=== PATIENT | female | born 1970 | race Caucasian/White ===

== ENCOUNTER → 2017-05-01 | Outpatient (CLI) | payer OTHER ==
[~2017-05-01] MED LIST: ACYC200 PO; ALBU.083IS IH; ALBU90OI INH; ALBU90OI6 INH; ALBU90OI61 INH; AMOCLA875 PO; AMOX500 PO; ANAS1 PO; ASPI325 PO; ASPI81CH PO; Anastrozole1 GM MC; BECL80OI INH; BUPR1 PO; BUPR75 SL; BUPRENORPHIN-N1 EACH SL; BUPRENORPHINE HC8 MG PO; BUPRENORPHINE HC8 MG SL; Bactrim Ds Tab1 EACH PO; CEPH500 PO; CLIN300 PO; CLON1; CONEST.625 PO; CONEST1.25 PO; CYAN1000; CYAN1000I IM; CYCL10; CYCL10 PO; Catapres-Tts 11 EACH TOP; Cipro500 MG PO; DIPATR PO; DIPH50 PO; DOC250 PO; DOCU100 PO; DULO30; DULO60 PO; Diflucan100 MG PO; Diflucan150 MG PO; ENJUVIA PO; ESCI10; FAMO20 PO; FERR325 PO; FOLI400 PO; FURO40 PO; Flagyl500 MG PO; Flovent Diskus50 MCG IH; GLIP5 PO; GLIP5ER PO; GUAI600T33 PO; Glucophage1000 MG PO; HYDACE25S PR; HYDACE5 PO; HYDHCL25 PO; HYDMOR2 PO; HYDMOR4 PO; IBUP600; IBUP600 PO; IBUP800; IBUP800 PO; Inderal 20 mg T20 MG GT; KETO75 PO; Keflex500 MG PO; LAVAP17G PO; LEVFLO500 PO; LORA.5 PO; LORPSEER12 PO; Lisinopril2.5 MG PO; MAGCIT300 PO; METF500; METF500 PO; METF500C PO; METH10; METH40 PO; METO25 PO; METO25ER PO; MORP15ER; MORP30; MORP30ER; MULVITMIND; MULVITMINF; Macrobid 100 M100 MG PO; Macrodantin100 MG PO; Metformin HCl1000 MG PO; Miralax17 GM PO; NAC600 MG PO; NAPR500 PO; Naprosyn500 MG PO; Norco 5-325 Ta1 EACH PO; OXCA300 PO; OXYACE5T PO; OXYACE7.5T PO; OXYC10ER; PHENA100 PO; PHENA200 PO; POTA8; POTCHL10ER PO; PRED20 PO; PREG75 PO; PROM25 PO; PROP10 PO; Percocet 5-3251 EACH PO; Potassium Chlo10 ME1 PO; Prozac20 MG PO; Pyridium200 MG PO; QUET200; QUET200 PO; QUET25 PO; QUET300 PO; RANI150 PO; RXCLIN PO; RXLORA1 PO; RXOXYACE PO; RXPHEN200 PO; RXSULTRIDS PO; SIME80CH PO; SULTRIDS; SULTRIDS PO; Seroquel200 MG PO; TIOT18 IH; TIOT18 INH; TOPAMAX; TOPI50 PO; TORSE20 PO; TRAM50 PO; TRAZ100 PO; Tylenol325 MG PO; Ultram50 MG PO; VALA500; VALA500 PO; VITAMIN D2000 UNIT PO; VITAMIN D35000 UNI1 PO; Ventolin5 MG/1 ML INH; Veramyst10 GM NS; WARF5 PO; WARF7.5 PO; Zantac150 MG PO; Zofran Odt4 MG SL; [UNRECOGNIZED DRUG - OTHER]; [UNRECOGNIZED DRUG - OTHER]
== END | disposition home or self-care (01) ==
LOC: LAB SHORT 15:15
DX: N39.0 Urinary tract infection, site not specified (principal)
CPT/HCPCS: 87086

== ENCOUNTER 2017-05-26 09:30 | Emergency (ER) | payer OTHER ==
[~2017-05-26] VITALS: Ht 167.6 cm; Wt 117.9 kg
[~2017-05-26 09:30] MED LIST changes: -ACYC200 PO; -BUPRENORPHIN-N1 EACH SL; -Diflucan150 MG PO; -HYDMOR2 PO; -Keflex500 MG PO; -METO25 PO; -Macrobid 100 M100 MG PO; -NAC600 MG PO; -OXCA300 PO; -Prozac20 MG PO; -Seroquel200 MG PO; -Tylenol325 MG PO; -VITAMIN D2000 UNIT PO; -VITAMIN D35000 UNI1 PO; -WARF7.5 PO
[2017-05-26 10:20] LABS: BASOPHILS ABSOLUTE AUTO 0.03 K/mm3 (0.00-0.23); BASOPHILS PERCENT AUTO 0 % (0-2); EOSINOPHILS ABSOLUTE AUTO 0.15 K/mm3 (0.00-0.68); EOSINOPHILS PERCENT AUTO 2 % (0-6); Hematocrit 37.3 % (33.0-51.0); Hemoglobin 11.8 g/dL (11.5-16.0); IMMATURE GRAN ABSOLUTE AUTO 0.05 K/mm3 (0.00-0.10); IMMATURE GRAN PERCENT AUTO 1 % (0-1); LYMPHOCYTES PERCENT AUTO 25 % (21-46); MONOCYTES ABSOLUTE AUTO 0.39 K/mm3 (0.16-1.47); MONOCYTES PERCENT AUTO 5 % (4-13); Mean Corpuscular HGB Conc 31.6 g/dL (31.5-36.5); Mean Corpuscular Volume 85 fL (80-100); Mean Platelet Volume 10.8 fL (9.1-12.4); NEUTROPHILS ABSOLUTE AUTO 5.17 K/mm3 (1.96-9.15); NEUTROPHILS PERCENT AUTO 67 % (41-73); Platelet Count 225 K/mm3 (150-400); RDW Coefficient Variation 15.1 % (11.7-14.2); RDW Standard Deviation 47.7 fL (35.1-46.3); Red Blood Cell Count 4.37 M/mm3 (3.80-5.20); White Blood Cell Count 7.69 K/mm3 (4.00-11.30)
[2017-05-26] MEDS ORDERED: Lisinopril2.5 MG PO (10:20)
[2017-05-26] MEDS ORDERED: ANAS1 PO (10:21)
[2017-05-26] MEDS ORDERED: METO25 PO (10:21)
[2017-05-26 10:22] LABS: Source, Urine Clean Catch
[2017-05-26] MEDS ORDERED: Prozac20 MG PO (10:23)
[2017-05-26] MEDS ORDERED: QUET200 PO (10:26)
[2017-05-26] MEDS ORDERED: TORSE20 PO (10:27)
[2017-05-26 10:34] LABS: Alanine Aminotransfer (ALT/SGP 27 U/L (12-78); Albumin, Blood 3.6 g/dL (3.4-5.0); Albumin/Globulin Ratio 0.8 (0.8-1.8); Alk Phos 152 U/L (50-136); Anion Gap 10 mmol/L (6-16); Aspartate Aminotrans (AST/SGOT 16 U/L (12-37); Bilirubin, Total 0.3 mg/dL (0.1-1.0); Blood Urea Nitrogen 13 mg/dL (8-24); Bun/Creatinine Ratio 25.3 (12.0-20.0); CO2, Blood 22 mmol/L (21-32); Calcium, Blood 8.8 mg/dL (8.5-10.1); Chloride, Blood 108 mmol/L (98-108); Creatinine, Blood 0.51 mg/dL (0.40-1.00); Globulin, Blood 4.5 g/dL (2.2-4.0); Glomerular Filtration Rate >60 (60-); Glucose, Blood 152 mg/dL (70-99); Sodium, Blood 140 mmol/L (136-145); Total Protein, Blood 8.1 g/dL (6.4-8.2)
[2017-05-26 10:37] LABS: Bilirubin, Urine Neg (Neg); Blood, Urine 1+ (Neg); Glucose Qualitative, Urine Neg (Neg); Ketones, Urine Neg (Neg); Leukocyte Esterase, Urine 3+ (Neg); Nitrite, Urine Neg (Neg); Protein, Urine 1+ (Neg); Specific Gravity, Urine 1.015 (1.003-1.022); Urobilinogen, Urine NORM (Normal)
[2017-05-26 10:42] LABS: Appearance, Urine Clear (Clear); Color, Urine Yellow (P-Yellow)
[2017-05-26 10:43] LABS: Bacteria Many /hpf; Red Blood Cells, Urine 0-2 /hpf (0-2); Squamous Epithelial Cells Few /hpf (Few)
[2017-05-26] MEDS ORDERED: CEPH500 PO (11:13)
[2017-05-26] MEDS ORDERED: Ultram50 MG PO (11:13)
[2017-09-13] MEDS ORDERED: Macrobid 100 M100 MG PO (08:47)
[2017-09-13] MEDS ORDERED: Diflucan150 MG PO (08:47)
[2017-12-01] MEDS ORDERED: CYCL10 PO (12:04)
[2017-12-01] MEDS ORDERED: VITAMIN D2000 UNIT PO (12:08)
[2017-12-01] MEDS ORDERED: VITAMIN D35000 UNI1 PO (12:21)
[2017-12-01] MEDS ORDERED: OXCA300 PO (12:21)
== END 2017-05-26 11:31 | disposition home or self-care (01) ==
LOC: ER 09:30
PROVIDERS: Emergency Medicine
DX: N39.0 Urinary tract infection, site not specified (principal); J40 Bronchitis, not specified as acute or chronic; Z88.8 Allergy status to other drugs, medicaments and biological substances; Z91.030 Bee allergy status; Z79.899 Other long term (current) drug therapy; Z79.84 Long term (current) use of oral hypoglycemic drugs; Z79.82 Long term (current) use of aspirin; Z79.01 Long term (current) use of anticoagulants; Z90.49 Acquired absence of other specified parts of digestive tract; Z90.710 Acquired absence of both cervix and uterus
CPT/HCPCS: 36415; 71046; 80053; 81001; 85025; 87086; 93005; 93010; 94640; 96374; 96375; 99284; J1170; J2405

== ENCOUNTER → 2017-06-05 | Outpatient (CLI) | payer OTHER ==
[~2017-06-05] MED LIST changes: -Glucophage1000 MG PO; +METO25 PO; +Prozac20 MG PO
== END | disposition home or self-care (01) ==
LOC: LAB 16:30 → LAB SHORT 16:30
DX: N39.0 Urinary tract infection, site not specified (principal)
CPT/HCPCS: 87086

== ENCOUNTER 2017-08-31 13:38 | Emergency (ER) | payer OTHER ==
[~2017-08-31] VITALS: Ht 167.6 cm; Wt 117.9 kg
[~2017-08-31 13:38] MED LIST changes: +Glucophage1000 MG PO
[2017-08-31] MEDS ORDERED: NAC600 MG PO (13:56)
[2017-08-31] MEDS ORDERED: ACYC200 PO (13:58)
[2017-08-31] MEDS ORDERED: BUPRENORPHIN-N1 EACH SL (13:59)
[2017-08-31] MEDS ORDERED: DOCU100 PO (13:59)
[2017-08-31 15:22] LABS: International Normalized Ratio 3.04; Prothrombin Time Results 32.7 Sec (9.7-11.5)
[2017-08-31 15:28] LABS: Creatine Kinase MB 0.8 ng/mL (0.0-3.6); Creatine Kinase MB Index 1.2 (0.0-4.0)
[2017-08-31] MEDS ORDERED: Tylenol325 MG PO (15:28)
== END 2017-08-31 15:43 | disposition home or self-care (01) ==
LOC: ER 13:38
PROVIDERS: Emergency Medicine
DX: M79.631 Pain in right forearm (principal); M79.632 Pain in left forearm; Z79.01 Long term (current) use of anticoagulants; Z79.899 Other long term (current) drug therapy; Z79.82 Long term (current) use of aspirin; Z87.891 Personal history of nicotine dependence
CPT/HCPCS: 36415; 82550; 82553; 85610; 93971; 99284

== ENCOUNTER 2017-09-18 19:24 | Emergency (ER) | payer OTHER ==
[~2017-09-18] VITALS: Ht 167.6 cm; Wt 117.5 kg
[~2017-09-18 19:24] MED LIST changes: +ACYC200 PO; +BUPRENORPHIN-N1 EACH SL; +Diflucan150 MG PO; +Macrobid 100 M100 MG PO; +NAC600 MG PO; +Tylenol325 MG PO
[2017-09-18 21:02] LABS: BASOPHILS ABSOLUTE AUTO 0.06 K/mm3 (0.00-0.23); BASOPHILS PERCENT AUTO 1 % (0-2); EOSINOPHILS ABSOLUTE AUTO 0.25 K/mm3 (0.00-0.68); EOSINOPHILS PERCENT AUTO 2 % (0-6); Hematocrit 41.2 % (33.0-51.0); Hemoglobin 12.8 g/dL (11.5-16.0); IMMATURE GRAN ABSOLUTE AUTO 0.07 K/mm3 (0.00-0.10); IMMATURE GRAN PERCENT AUTO 1 % (0-1); LYMPHOCYTES ABSOLUTE AUTO 3.31 K/mm3 (0.84-5.20); LYMPHOCYTES PERCENT AUTO 30 % (21-46); MONOCYTES ABSOLUTE AUTO 0.82 K/mm3 (0.16-1.47); MONOCYTES PERCENT AUTO 7 % (4-13); Mean Corpuscular HGB 26.5 pg (26.0-34.0); Mean Corpuscular HGB Conc 31.1 g/dL (31.5-36.5); Mean Corpuscular Volume 85 fL (80-100); Mean Platelet Volume 10.3 fL (9.1-12.4); NEUTROPHILS ABSOLUTE AUTO 6.52 K/mm3 (1.96-9.15); NEUTROPHILS PERCENT AUTO 59 % (41-73); Platelet Count 261 K/mm3 (150-400); RDW Coefficient Variation 14.9 % (11.7-14.2); RDW Standard Deviation 46.6 fL (35.1-46.3); Red Blood Cell Count 4.83 M/mm3 (3.80-5.20); White Blood Cell Count 11.03 K/mm3 (4.00-11.30)
[2017-09-18 21:14] LABS: Prothrombin Time Results 32.3 Sec (9.7-11.5)
[2017-09-18] MEDS ORDERED: Keflex500 MG PO (21:15)
[2017-09-18 21:54] LABS: Anion Gap 9 mmol/L (6-16); Blood Urea Nitrogen 10 mg/dL (8-24); Bun/Creatinine Ratio 18.3 (12.0-20.0); CO2, Blood 22 mmol/L (21-32); Calcium, Blood 8.5 mg/dL (8.5-10.1); Chloride, Blood 108 mmol/L (98-108); Creatinine, Blood 0.55 mg/dL (0.40-1.00); Glomerular Filtration Rate >60 (60-); Glucose, Blood 126 mg/dL (70-99); Sodium, Blood 139 mmol/L (136-145)
== END 2017-09-18 21:39 | disposition home or self-care (01) ==
LOC: ER 19:24
PROVIDERS: Physician Assistant
DX: N61.0 Mastitis without abscess (principal); Z91.030 Bee allergy status; Z88.8 Allergy status to other drugs, medicaments and biological substances; Z79.899 Other long term (current) drug therapy; Z79.84 Long term (current) use of oral hypoglycemic drugs; Z79.82 Long term (current) use of aspirin; Z79.01 Long term (current) use of anticoagulants; Z87.891 Personal history of nicotine dependence
CPT/HCPCS: 36415; 80048; 85025; 85610; 99283

== ENCOUNTER 2017-11-11 21:36 | Emergency (ER) | payer OTHER ==
[~2017-11-11 21:36] MED LIST changes: +Keflex500 MG PO
== END 2017-11-11 22:02 | disposition left against medical advice (07) ==
LOC: ER 21:36
DX: Z53.21 Procedure and treatment not carried out due to patient leaving prior to being seen by health care provider (principal)

== ENCOUNTER 2017-12-02 00:50 | Day surgery (SDC) | payer OTHER ==
[~2017-12-02 00:50] MED LIST changes: +OXCA300 PO; +VITAMIN D2000 UNIT PO; +VITAMIN D35000 UNI1 PO
== END 2017-12-02 10:30 | disposition home or self-care (01) ==
LOC: ATC 00:50
DX: T81.4XXA Infection following a procedure, initial encounter (principal); Z95.4 Presence of other heart-valve replacement; E11.9 Type 2 diabetes mellitus without complications; Z79.01 Long term (current) use of anticoagulants
CPT/HCPCS: 36416; 85610; 96372; J1650

== ENCOUNTER 2017-12-03 00:47 | Day surgery (SDC) | payer OTHER | END 2017-12-03 10:44 | disposition home or self-care (01) | LOC: ATC 00:47 | DX: T81.4XXA Infection following a procedure, initial encounter (principal); Z95.4 Presence of other heart-valve replacement; I10 Essential (primary) hypertension; F32.9 Major depressive disorder, single episode, unspecified; I34.0 Nonrheumatic mitral (valve) insufficiency | CPT/HCPCS: 96372; J1650 ==

== ENCOUNTER 2017-12-06 00:06 | Day surgery (SDC) | payer OTHER ==
[2017-12-06] MEDS ORDERED: Prozac20 MG PO (02:07)
[2017-12-06] MEDS ORDERED: Seroquel200 MG PO (02:09)
[2017-12-06] MEDS ORDERED: TOPI50 PO (02:10)
[2017-12-06] MEDS ORDERED: HYDMOR2 PO (02:11)
[2017-12-06] MEDS ORDERED: WARF7.5 PO (02:11)
[2017-12-07] MEDS ORDERED: HYDMOR2 PO (12:19)
== END 2017-12-06 11:00 | disposition home or self-care (01) ==
LOC: ATC 00:06
DX: J44.1 Chronic obstructive pulmonary disease with (acute) exacerbation (principal); I10 Essential (primary) hypertension; F32.9 Major depressive disorder, single episode, unspecified; E78.5 Hyperlipidemia, unspecified; Z87.891 Personal history of nicotine dependence
CPT/HCPCS: J1650

== ENCOUNTER 2017-12-06 01:49 | Emergency (ER) | payer OTHER ==
[~2017-12-06] VITALS: Ht 167.6 cm; Wt 115.7 kg
[2017-12-06] MEDS ORDERED: Prozac20 MG PO (02:07)
[2017-12-06] MEDS ORDERED: Seroquel200 MG PO (02:09)
[2017-12-06] MEDS ORDERED: TOPI50 PO (02:10)
[2017-12-06] MEDS ORDERED: HYDMOR2 PO (02:11)
[2017-12-06] MEDS ORDERED: WARF7.5 PO (02:11)
[2017-12-06 02:57] LABS: BASOPHILS ABSOLUTE AUTO 0.02 K/mm3 (0.00-0.23); BASOPHILS PERCENT AUTO 0 % (0-2); EOSINOPHILS ABSOLUTE AUTO 0.15 K/mm3 (0.00-0.68); EOSINOPHILS PERCENT AUTO 2 % (0-6); Hematocrit 35.2 % (33.0-51.0); Hemoglobin 11.1 g/dL (11.5-16.0); IMMATURE GRAN ABSOLUTE AUTO 0.07 K/mm3 (0.00-0.10); IMMATURE GRAN PERCENT AUTO 1 % (0-1); LYMPHOCYTES ABSOLUTE AUTO 2.33 K/mm3 (0.84-5.20); LYMPHOCYTES PERCENT AUTO 35 % (21-46); MONOCYTES ABSOLUTE AUTO 0.52 K/mm3 (0.16-1.47); MONOCYTES PERCENT AUTO 8 % (4-13); Mean Corpuscular HGB 28.2 pg (26.0-34.0); Mean Corpuscular HGB Conc 31.5 g/dL (31.5-36.5); Mean Corpuscular Volume 90 fL (80-100); NEUTROPHILS ABSOLUTE AUTO 3.62 K/mm3 (1.96-9.15); NEUTROPHILS PERCENT AUTO 54 % (41-73); Platelet Count 204 K/mm3 (150-400); RDW Coefficient Variation 15.7 % (11.7-14.2); RDW Standard Deviation 51.4 fL (35.1-46.3); Red Blood Cell Count 3.93 M/mm3 (3.80-5.20); White Blood Cell Count 6.71 K/mm3 (4.00-11.30)
[2017-12-06 03:14] LABS: International Normalized Ratio 1.02; Prothrombin Time Results 10.5 Sec (9.7-11.5)
[2017-12-06 03:16] LABS: Alanine Aminotransfer (ALT/SGP 30 U/L (12-78); Albumin, Blood 3.4 g/dL (3.4-5.0); Albumin/Globulin Ratio 0.9 (0.8-1.8); Alk Phos 143 U/L (50-136); Anion Gap 6 mmol/L (6-16); Aspartate Aminotrans (AST/SGOT 31 U/L (12-37); Bilirubin, Total 0.4 mg/dL (0.1-1.0); Blood Urea Nitrogen 13 mg/dL (8-24); Bun/Creatinine Ratio 19.1 (12.0-20.0); CO2, Blood 28 mmol/L (21-32); Calcium, Blood 8.3 mg/dL (8.5-10.1); Chloride, Blood 104 mmol/L (98-108); Creatinine, Blood 0.68 mg/dL (0.40-1.00); Globulin, Blood 3.8 g/dL (2.2-4.0); Glomerular Filtration Rate >60 (60-); Glucose, Blood 155 mg/dL (70-99); Sodium, Blood 138 mmol/L (136-145); Total Protein, Blood 7.2 g/dL (6.4-8.2)
[2017-12-07] MEDS ORDERED: HYDMOR2 PO (12:19)
== END 2017-12-06 05:41 | disposition home or self-care (01) ==
LOC: ER 01:49
PROVIDERS: Emergency Medicine
DX: T81.89XA Other complications of procedures, not elsewhere classified, initial encounter (principal); Z91.030 Bee allergy status; Z88.8 Allergy status to other drugs, medicaments and biological substances; Z79.899 Other long term (current) drug therapy; Z79.82 Long term (current) use of aspirin; Z79.01 Long term (current) use of anticoagulants; Z87.891 Personal history of nicotine dependence
CPT/HCPCS: 80053; 85025; 85610; 85730; 93005; 93010; 96374; 99284-25; J3010

== ENCOUNTER 2017-12-06 11:06 | Emergency (ER) | payer OTHER ==
[~2017-12-06] VITALS: Ht 167.6 cm; Wt 115.7 kg
[~2017-12-06 11:06] MED LIST changes: +HYDMOR2 PO; +Seroquel200 MG PO; +WARF7.5 PO
[2017-12-07] MEDS ORDERED: HYDMOR2 PO (12:19)
== END 2017-12-06 13:23 | disposition home or self-care (01) ==
LOC: ER 11:06
DX: M96.831 Postprocedural hemorrhage of a musculoskeletal structure following other procedure (principal); G89.18 Other acute postprocedural pain; R07.2 Precordial pain; Z91.030 Bee allergy status; Z88.8 Allergy status to other drugs, medicaments and biological substances; Z79.899 Other long term (current) drug therapy; Z79.84 Long term (current) use of oral hypoglycemic drugs; Z79.82 Long term (current) use of aspirin; Z79.01 Long term (current) use of anticoagulants
CPT/HCPCS: 99282-25

== ENCOUNTER 2017-12-07 10:22 | Day surgery (SDC) | payer OTHER ==
[2017-12-07] MEDS ORDERED: HYDMOR2 PO (12:19)
== END 2017-12-07 10:42 | disposition home or self-care (01) ==
LOC: ATC 10:22
DX: J44.1 Chronic obstructive pulmonary disease with (acute) exacerbation (principal); T81.4XXA Infection following a procedure, initial encounter; Z95.4 Presence of other heart-valve replacement; I10 Essential (primary) hypertension; F32.9 Major depressive disorder, single episode, unspecified; E03.9 Hypothyroidism, unspecified; E78.5 Hyperlipidemia, unspecified; Z87.891 Personal history of nicotine dependence; J15.8 Pneumonia due to other specified bacteria
CPT/HCPCS: 85610; J1650

== ENCOUNTER 2017-12-07 11:35 | Emergency (ER) | payer OTHER ==
[~2017-12-07] VITALS: Ht 167.6 cm; Wt 113.4 kg
[2017-12-07] MEDS ORDERED: HYDMOR2 PO (12:19)
== END 2017-12-07 12:32 | disposition home or self-care (01) ==
LOC: ER 11:35
DX: G89.18 Other acute postprocedural pain (principal); Z91.030 Bee allergy status; Z88.8 Allergy status to other drugs, medicaments and biological substances; Z88.5 Allergy status to narcotic agent; Z79.899 Other long term (current) drug therapy; Z79.84 Long term (current) use of oral hypoglycemic drugs; Z79.82 Long term (current) use of aspirin; Z79.01 Long term (current) use of anticoagulants; Z87.891 Personal history of nicotine dependence
CPT/HCPCS: 99281

== ENCOUNTER 2017-12-09 00:04 | Day surgery (SDC) | payer OTHER | END 2017-12-09 10:30 | disposition home or self-care (01) | LOC: ATC 00:04 | DX: T81.4XXA Infection following a procedure, initial encounter (principal); Z95.4 Presence of other heart-valve replacement; I10 Essential (primary) hypertension; J44.9 Chronic obstructive pulmonary disease, unspecified; F32.9 Major depressive disorder, single episode, unspecified | CPT/HCPCS: 85610; 96372; J1650 ==

== ENCOUNTER 2017-12-10 10:06 | Day surgery (SDC) | payer OTHER | END 2017-12-10 10:20 | disposition home or self-care (01) | LOC: ATC 10:06 | DX: T81.4XXA Infection following a procedure, initial encounter (principal); Z95.4 Presence of other heart-valve replacement; I10 Essential (primary) hypertension; J44.9 Chronic obstructive pulmonary disease, unspecified; F32.9 Major depressive disorder, single episode, unspecified | CPT/HCPCS: 36416; 85610; 99211; J1650 ==

== ENCOUNTER → 2017-12-15 | Outpatient (CLI) | payer OTHER ==
[2017-12-15 15:15] LABS: Source, Urine Clean Catch
[2017-12-15 17:02] LABS: Bilirubin, Urine Neg (Neg); Blood, Urine Neg (Neg); Glucose Qualitative, Urine Neg (Neg); Ketones, Urine Neg (Neg); Leukocyte Esterase, Urine 3+ (Neg); Nitrite, Urine Neg (Neg); Protein, Urine Neg (Neg); Urobilinogen, Urine NORM (Normal)
[2017-12-15 17:10] LABS: Appearance, Urine Cloudy (Clear); Color, Urine Yellow (P-Yellow)
[2017-12-15 17:11] LABS: Bacteria Many /hpf; Squamous Epithelial Cells Few /hpf (Few)
== END ==
LOC: LAB 15:13 → LAB SHORT 15:13
PROVIDERS: Nurse Practitioner Family
DX: R30.0 Dysuria (principal)
CPT/HCPCS: 81001; 87077; 87086; 87186

== ENCOUNTER 2017-12-18 20:30 | Emergency (ER) | payer OTHER ==
[~2017-12-18] VITALS: Ht 162.6 cm; Wt 120.2 kg
[2017-12-18 21:06] LABS: BASOPHILS ABSOLUTE AUTO 0.03 K/mm3 (0.00-0.23); BASOPHILS PERCENT AUTO 1 % (0-2); EOSINOPHILS PERCENT AUTO 4 % (0-6); Hematocrit 35.8 % (33.0-51.0); Hemoglobin 11.2 g/dL (11.5-16.0); IMMATURE GRAN ABSOLUTE AUTO 0.04 K/mm3 (0.00-0.10); IMMATURE GRAN PERCENT AUTO 1 % (0-1); LYMPHOCYTES ABSOLUTE AUTO 2.21 K/mm3 (0.84-5.20); LYMPHOCYTES PERCENT AUTO 39 % (21-46); MONOCYTES ABSOLUTE AUTO 0.33 K/mm3 (0.16-1.47); MONOCYTES PERCENT AUTO 6 % (4-13); Mean Corpuscular HGB 27.9 pg (26.0-34.0); Mean Corpuscular HGB Conc 31.3 g/dL (31.5-36.5); Mean Corpuscular Volume 89 fL (80-100); Mean Platelet Volume 9.7 fL (9.1-12.4); NEUTROPHILS ABSOLUTE AUTO 2.81 K/mm3 (1.96-9.15); NEUTROPHILS PERCENT AUTO 50 % (41-73); Platelet Count 279 K/mm3 (150-400); RDW Coefficient Variation 15.8 % (11.7-14.2); Red Blood Cell Count 4.02 M/mm3 (3.80-5.20); White Blood Cell Count 5.62 K/mm3 (4.00-11.30)
[2017-12-18 21:18] LABS: International Normalized Ratio 1.38
[2017-12-18 21:24] LABS: Alanine Aminotransfer (ALT/SGP 26 U/L (12-78); Albumin, Blood 3.4 g/dL (3.4-5.0); Albumin/Globulin Ratio 0.8 (0.8-1.8); Alk Phos 154 U/L (50-136); Anion Gap 10 mmol/L (6-16); Aspartate Aminotrans (AST/SGOT 25 U/L (12-37); Bilirubin, Total 0.3 mg/dL (0.1-1.0); Blood Urea Nitrogen 12 mg/dL (8-24); Bun/Creatinine Ratio 20.7 (12.0-20.0); CO2, Blood 23 mmol/L (21-32); Calcium, Blood 8.6 mg/dL (8.5-10.1); Chloride, Blood 106 mmol/L (98-108); Creatinine, Blood 0.58 mg/dL (0.40-1.00); Globulin, Blood 4.2 g/dL (2.2-4.0); Glomerular Filtration Rate >60 (60-); Glucose, Blood 159 mg/dL (70-99); Potassium, Blood 3.6 mmol/L (3.5-5.5); Sodium, Blood 139 mmol/L (136-145); Total Protein, Blood 7.6 g/dL (6.4-8.2); Troponin I <0.015 ng/mL (0.000-0.040)
== END 2017-12-18 22:19 | disposition home or self-care (01) ==
LOC: ER 20:30
PROVIDERS: Emergency Medicine
DX: R07.9 Chest pain, unspecified (principal); Z91.030 Bee allergy status; Z88.8 Allergy status to other drugs, medicaments and biological substances; Z79.899 Other long term (current) drug therapy; Z79.82 Long term (current) use of aspirin; Z87.891 Personal history of nicotine dependence; Z95.4 Presence of other heart-valve replacement
CPT/HCPCS: 71046; 80053; 84484; 85025; 85610; 93005; 93010; 96360; 99285-25; J7030

== ENCOUNTER 2017-12-31 15:32 | Emergency (ER) | payer OTHER ==
[~2017-12-31] VITALS: Ht 167.6 cm; Wt 117.9 kg
== END 2017-12-31 16:24 | disposition home or self-care (01) ==
LOC: ER 15:32
DX: S60.021A Contusion of right index finger without damage to nail, initial encounter (principal); Z91.030 Bee allergy status; Z88.8 Allergy status to other drugs, medicaments and biological substances; Z79.899 Other long term (current) drug therapy; Z79.84 Long term (current) use of oral hypoglycemic drugs; Z79.82 Long term (current) use of aspirin; Z79.01 Long term (current) use of anticoagulants; Z87.891 Personal history of nicotine dependence; W23.0XXA Caught, crushed, jammed, or pinched between moving objects, initial encounter
CPT/HCPCS: 29130; 73140; 99283-25

== ENCOUNTER 2018-01-02 15:41 | Emergency (ER) | payer OTHER ==
[~2018-01-02] VITALS: Ht 167.6 cm; Wt 117.9 kg
[2018-01-02 16:07] LABS: BASOPHILS ABSOLUTE AUTO 0.03 K/mm3 (0.00-0.23); BASOPHILS PERCENT AUTO 0 % (0-2); EOSINOPHILS ABSOLUTE AUTO 0.21 K/mm3 (0.00-0.68); EOSINOPHILS PERCENT AUTO 2 % (0-6); Hematocrit 36.6 % (33.0-51.0); Hemoglobin 11.6 g/dL (11.5-16.0); IMMATURE GRAN ABSOLUTE AUTO 0.06 K/mm3 (0.00-0.10); IMMATURE GRAN PERCENT AUTO 1 % (0-1); LYMPHOCYTES ABSOLUTE AUTO 2.14 K/mm3 (0.84-5.20); LYMPHOCYTES PERCENT AUTO 25 % (21-46); MONOCYTES ABSOLUTE AUTO 0.49 K/mm3 (0.16-1.47); MONOCYTES PERCENT AUTO 6 % (4-13); Mean Corpuscular HGB Conc 31.7 g/dL (31.5-36.5); Mean Corpuscular Volume 88 fL (80-100); Mean Platelet Volume 10.5 fL (9.1-12.4); NEUTROPHILS ABSOLUTE AUTO 5.78 K/mm3 (1.96-9.15); NEUTROPHILS PERCENT AUTO 66 % (41-73); Platelet Count 264 K/mm3 (150-400); RDW Coefficient Variation 15.7 % (11.7-14.2); RDW Standard Deviation 51.1 fL (35.1-46.3); Red Blood Cell Count 4.14 M/mm3 (3.80-5.20); White Blood Cell Count 8.71 K/mm3 (4.00-11.30)
[2018-01-02 16:25] LABS: Alanine Aminotransfer (ALT/SGP 27 U/L (12-78); Albumin, Blood 3.5 g/dL (3.4-5.0); Albumin/Globulin Ratio 0.8 (0.8-1.8); Alk Phos 155 U/L (50-136); Anion Gap 11 mmol/L (6-16); Aspartate Aminotrans (AST/SGOT 28 U/L (12-37); Bilirubin, Total 0.2 mg/dL (0.1-1.0); Blood Urea Nitrogen 7 mg/dL (8-24); Bun/Creatinine Ratio 12.8 (12.0-20.0); CO2, Blood 20 mmol/L (21-32); Calcium, Blood 8.5 mg/dL (8.5-10.1); Chloride, Blood 108 mmol/L (98-108); Creatinine, Blood 0.55 mg/dL (0.40-1.00); Globulin, Blood 4.2 g/dL (2.2-4.0); Glomerular Filtration Rate >60 (60-); Glucose, Blood 177 mg/dL (70-99); Potassium, Blood 3.7 mmol/L (3.5-5.5); Sodium, Blood 139 mmol/L (136-145); Total Protein, Blood 7.7 g/dL (6.4-8.2)
== END 2018-01-02 19:14 | disposition home or self-care (01) ==
LOC: ER 15:41
PROVIDERS: Emergency Medicine
DX: R19.00 Intra-abdominal and pelvic swelling, mass and lump, unspecified site (principal); N93.9 Abnormal uterine and vaginal bleeding, unspecified; Z91.030 Bee allergy status; Z88.5 Allergy status to narcotic agent; Z88.8 Allergy status to other drugs, medicaments and biological substances; Z79.899 Other long term (current) drug therapy; Z79.84 Long term (current) use of oral hypoglycemic drugs; Z79.82 Long term (current) use of aspirin; Z79.01 Long term (current) use of anticoagulants; Z87.891 Personal history of nicotine dependence
CPT/HCPCS: 36415; 74177; 80053; 85025; 99284-25; Q9967

== ENCOUNTER → 2018-01-07 | Outpatient (CLI) | payer OTHER | LOC: LAB 17:57 → LAB SHORT 17:57 | DX: R30.0 Dysuria (principal) | CPT/HCPCS: 87086 ==

== ENCOUNTER → 2018-01-14 | Outpatient (CLI) | payer OTHER ==
[2018-01-14 16:39] LABS: Appearance, Urine Clear (Clear); Bilirubin, Urine Neg (Neg); Blood, Urine 5+ (Neg); Color, Urine Amber (P-Yellow); Glucose Qualitative, Urine Neg (Neg); Ketones, Urine 1+ (Neg); Leukocyte Esterase, Urine 1+ (Neg); Nitrite, Urine Neg (Neg); Protein, Urine 2+ (Neg); Urobilinogen, Urine NORM (Normal)
[2018-01-14 16:55] LABS: Bacteria Few /hpf; Red Blood Cells, Urine TNTC /hpf (0-2); Squamous Epithelial Cells Few /hpf (Few)
[2018-01-15 09:39] LABS: Candida species (DNA Probe) Positive (NEGATIVE); G. vaginalis (DNA Probe) Negative (NEGATIVE); T. vaginalis (DNA Probe) Negative (NEGATIVE)
== END ==
LOC: LAB 16:27 → LAB SHORT 16:27
PROVIDERS: Nurse Practitioner Family
DX: E11.9 Type 2 diabetes mellitus without complications (principal); R30.0 Dysuria
CPT/HCPCS: 81001; 82043; 87086; 87480; 87510; 87660

== ENCOUNTER 2018-04-22 19:34 | Emergency (ER) | payer OTHER ==
[~2018-04-22] VITALS: Ht 167.6 cm; Wt 117.9 kg
[2018-04-22] MEDS ORDERED: SUDAFED 12-HOU120 MG PO (20:43)
== END 2018-04-22 20:50 | disposition home or self-care (01) ==
LOC: ER 19:34
DX: J40 Bronchitis, not specified as acute or chronic (principal); Z91.030 Bee allergy status; Z88.5 Allergy status to narcotic agent; Z88.8 Allergy status to other drugs, medicaments and biological substances; Z79.899 Other long term (current) drug therapy; Z79.84 Long term (current) use of oral hypoglycemic drugs; Z79.82 Long term (current) use of aspirin; Z87.891 Personal history of nicotine dependence
CPT/HCPCS: 71046; 94640; 99284-25

== ENCOUNTER 2018-05-17 12:36 | Emergency (ER) | payer OTHER ==
[~2018-05-17] VITALS: Ht 167.6 cm; Wt 117.9 kg
[~2018-05-17 12:36] MED LIST changes: +SUDAFED 12-HOU120 MG PO
[2018-05-17 13:21] LABS: BASOPHILS ABSOLUTE AUTO 0.03 K/mm3 (0.00-0.23); BASOPHILS PERCENT AUTO 0 % (0-2); EOSINOPHILS ABSOLUTE AUTO 0.13 K/mm3 (0.00-0.68); EOSINOPHILS PERCENT AUTO 2 % (0-6); Hematocrit 42.3 % (33.0-51.0); Hemoglobin 13.6 g/dL (11.5-16.0); IMMATURE GRAN ABSOLUTE AUTO 0.05 K/mm3 (0.00-0.10); IMMATURE GRAN PERCENT AUTO 1 % (0-1); LYMPHOCYTES ABSOLUTE AUTO 0.56 K/mm3 (0.84-5.20); LYMPHOCYTES PERCENT AUTO 7 % (21-46); MONOCYTES ABSOLUTE AUTO 0.48 K/mm3 (0.16-1.47); MONOCYTES PERCENT AUTO 6 % (4-13); Mean Corpuscular HGB 28.1 pg (26.0-34.0); Mean Corpuscular HGB Conc 32.2 g/dL (31.5-36.5); Mean Corpuscular Volume 87 fL (80-100); Mean Platelet Volume 10.3 fL (9.1-12.4); NEUTROPHILS ABSOLUTE AUTO 6.53 K/mm3 (1.96-9.15); NEUTROPHILS PERCENT AUTO 84 % (41-73); Platelet Count 214 K/mm3 (150-400); RDW Standard Deviation 47.7 fL (35.1-46.3); Red Blood Cell Count 4.84 M/mm3 (3.80-5.20); White Blood Cell Count 7.78 K/mm3 (4.00-11.30)
[2018-05-17 13:56] LABS: Alanine Aminotransfer (ALT/SGP 35 U/L (12-78); Albumin, Blood 3.9 g/dL (3.4-5.0); Albumin/Globulin Ratio 0.8 (0.8-1.8); Alk Phos 173 U/L (50-136); Anion Gap 10 mmol/L (6-16); Aspartate Aminotrans (AST/SGOT 53 U/L (12-37); Bilirubin, Total 0.7 mg/dL (0.1-1.0); Blood Urea Nitrogen 9 mg/dL (8-24); Bun/Creatinine Ratio 15.8 (12.0-20.0); CO2, Blood 23 mmol/L (21-32); Calcium, Blood 8.3 mg/dL (8.5-10.1); Chloride, Blood 103 mmol/L (98-108); Creatinine, Blood 0.57 mg/dL (0.40-1.00); Globulin, Blood 4.6 g/dL (2.2-4.0); Glomerular Filtration Rate >60 (60-); Glucose, Blood 171 mg/dL (70-99); Potassium, Blood 3.5 mmol/L (3.5-5.5); Sodium, Blood 136 mmol/L (136-145); Total Protein, Blood 8.5 g/dL (6.4-8.2)
[2018-05-17 14:04] LABS: Source, Urine Clean Catch
[2018-05-17 14:06] LABS: Appearance, Urine Clear (Clear); Bilirubin, Urine Neg (Neg); Blood, Urine 2+ (Neg); Color, Urine Yellow (P-Yellow); Glucose Qualitative, Urine Neg (Neg); Ketones, Urine Neg (Neg); Leukocyte Esterase, Urine 1+ (Neg); Nitrite, Urine Neg (Neg); Protein, Urine 1+ (Neg); Urobilinogen, Urine 1+ (Normal); pH, Urine 6.5 (5.0-8.0)
[2018-05-17 14:38] LABS: Bacteria Not Seen /hpf; Squamous Epithelial Cells Few /hpf (Few)
[2018-05-17 14:44] LABS: U Amphetamine Screen Not Detected; U Barbituate Screen Not Detected; U Benzodiazapine Screen DETECTED; U Cocaine Screen Not Detected; U Methadone Screen Not Detected; U Methamphetamine Screen Not Detected; U Opiates Screen Not Detected; U Phencyclidine Screen Not Detected
[2018-05-17 14:45] LABS: U Buprenorphine Screen DETECTED; U Cannabinoids Screen Not Detected; U Oxycodone Screen Not Detected; U Propoxyphene Screen Not Detected
[2018-05-17] MEDS ORDERED: Macrobid 100 M100 MG PO (14:55)
== END 2018-05-17 15:04 | disposition home or self-care (01) ==
LOC: ER 12:36
PROVIDERS: Internal Medicine; Physician Assistant
DX: R41.0 Disorientation, unspecified (principal); E11.9 Type 2 diabetes mellitus without complications; Z79.84 Long term (current) use of oral hypoglycemic drugs; Z79.899 Other long term (current) drug therapy; Z79.82 Long term (current) use of aspirin; Z79.01 Long term (current) use of anticoagulants; Z91.030 Bee allergy status; Z88.8 Allergy status to other drugs, medicaments and biological substances; Z87.891 Personal history of nicotine dependence
CPT/HCPCS: 36415; 80053; 81001; 82947; 85025; 87086; 93005; 93010; 99285-25

== ENCOUNTER 2018-06-27 19:25 | Emergency (ER) | payer OTHER | END 2018-06-27 19:54 | disposition left against medical advice (07) | LOC: ER 19:25 | DX: Z53.21 Procedure and treatment not carried out due to patient leaving prior to being seen by health care provider (principal) ==

== ENCOUNTER 2018-07-20 15:20 | Emergency (ER) | payer OTHER ==
[~2018-07-20] VITALS: Ht 167.6 cm; Wt 117.9 kg
[2018-07-20 16:11] LABS: BASOPHILS ABSOLUTE AUTO 0.03 K/mm3 (0.00-0.23); BASOPHILS PERCENT AUTO 0 % (0-2); EOSINOPHILS PERCENT AUTO 1 % (0-6); Hematocrit 40.9 % (33.0-51.0); Hemoglobin 12.9 g/dL (11.5-16.0); IMMATURE GRAN ABSOLUTE AUTO 0.04 K/mm3 (0.00-0.10); IMMATURE GRAN PERCENT AUTO 1 % (0-1); LYMPHOCYTES ABSOLUTE AUTO 1.95 K/mm3 (0.84-5.20); LYMPHOCYTES PERCENT AUTO 22 % (21-46); MONOCYTES ABSOLUTE AUTO 0.43 K/mm3 (0.16-1.47); MONOCYTES PERCENT AUTO 5 % (4-13); Mean Corpuscular HGB 28.9 pg (26.0-34.0); Mean Corpuscular HGB Conc 31.5 g/dL (31.5-36.5); Mean Corpuscular Volume 92 fL (80-100); Mean Platelet Volume 10.5 fL (9.1-12.4); NEUTROPHILS ABSOLUTE AUTO 6.29 K/mm3 (1.96-9.15); NEUTROPHILS PERCENT AUTO 71 % (41-73); Platelet Count 256 K/mm3 (150-400); RDW Standard Deviation 47.2 fL (35.1-46.3); Red Blood Cell Count 4.46 M/mm3 (3.80-5.20); White Blood Cell Count 8.84 K/mm3 (4.00-11.30)
[2018-07-20 16:38] LABS: Alanine Aminotransfer (ALT/SGP 24 U/L (12-78); Albumin, Blood 3.8 g/dL (3.4-5.0); Albumin/Globulin Ratio 0.9 (0.8-1.8); Alk Phos 143 U/L (50-136); Anion Gap 7 mmol/L (6-16); Aspartate Aminotrans (AST/SGOT 26 U/L (12-37); Bilirubin, Total 0.8 mg/dL (0.1-1.0); Blood Urea Nitrogen 4 mg/dL (8-24); CO2, Blood 28 mmol/L (21-32); Calcium, Blood 8.6 mg/dL (8.5-10.1); Chloride, Blood 102 mmol/L (98-108); Creatinine, Blood 0.45 mg/dL (0.40-1.00); Globulin, Blood 4.2 g/dL (2.2-4.0); Glomerular Filtration Rate >60 (60-); Glucose, Blood 127 mg/dL (70-99); Potassium, Blood 3.9 mmol/L (3.5-5.5); Sodium, Blood 137 mmol/L (136-145)
[2018-07-20 16:46] LABS: Source, Urine Clean Catch
[2018-07-20 16:53] LABS: Bilirubin, Urine Neg (Neg); Blood, Urine Neg (Neg); Glucose Qualitative, Urine Neg (Neg); Ketones, Urine Neg (Neg); Leukocyte Esterase, Urine Neg (Neg); Nitrite, Urine Neg (Neg); Protein, Urine Neg (Neg); Specific Gravity, Urine 1.015 (1.003-1.022); Urobilinogen, Urine NORM (Normal)
[2018-07-20 17:09] LABS: Appearance, Urine Clear (Clear); Color, Urine Yellow (P-Yellow)
[2018-07-20] MEDS ORDERED: PROM25 PO (18:07)
== END 2018-07-20 18:15 | disposition home or self-care (01) ==
LOC: ER 15:20
PROVIDERS: Physician Assistant
DX: R11.0 Nausea (principal); Z91.030 Bee allergy status; Z88.8 Allergy status to other drugs, medicaments and biological substances; Z79.899 Other long term (current) drug therapy; Z79.82 Long term (current) use of aspirin; Z79.01 Long term (current) use of anticoagulants; Z87.891 Personal history of nicotine dependence
CPT/HCPCS: 36415; 71046; 80053; 81003; 83880; 84484; 85025; 93005; 93010; 96374; 99285-25; J2550

== ENCOUNTER → 2018-09-17 | Outpatient (CLI) | payer OTHER ==
[2018-09-17 13:05] LABS: Source, Urine Clean Catch
[2018-09-17 18:14] LABS: Bilirubin, Urine Neg (Neg); Blood, Urine 5+ (Neg); Glucose Qualitative, Urine Neg (Neg); Ketones, Urine Neg (Neg); Leukocyte Esterase, Urine 1+ (Neg); Nitrite, Urine Neg (Neg); Protein, Urine 1+ (Neg); Urobilinogen, Urine NORM (Normal)
[2018-09-17 18:33] LABS: Appearance, Urine Clear (Clear); Color, Urine Yellow (P-Yellow)
[2018-09-17 18:34] LABS: Red Blood Cells, Urine 25-50 /hpf (0-2); Squamous Epithelial Cells Few /hpf (Few)
[2018-09-17 18:35] LABS: Bacteria Few /hpf
[2018-09-18 11:13] LABS: Candida species (DNA Probe) Positive (NEGATIVE); G. vaginalis (DNA Probe) Negative (NEGATIVE); T. vaginalis (DNA Probe) Negative (NEGATIVE)
== END | disposition home or self-care (01) ==
LOC: LAB 11:20 → LAB SHORT 11:20
PROVIDERS: Nurse Practitioner Family
DX: N39.0 Urinary tract infection, site not specified (principal); L29.8 Other pruritus
CPT/HCPCS: 81001; 87086; 87480; 87510; 87660

== ENCOUNTER 2018-11-12 02:15 | Emergency (ER) | payer OTHER ==
[~2018-11-12] VITALS: Ht 167.6 cm; Wt 117.9 kg
[2018-11-12 02:47] LABS: BASOPHILS ABSOLUTE AUTO 0.03 K/mm3 (0.00-0.23); BASOPHILS PERCENT AUTO 1 % (0-2); EOSINOPHILS ABSOLUTE AUTO 0.12 K/mm3 (0.00-0.68); EOSINOPHILS PERCENT AUTO 2 % (0-6); Hematocrit 36.2 % (33.0-51.0); Hemoglobin 11.7 g/dL (11.5-16.0); IMMATURE GRAN ABSOLUTE AUTO 0.03 K/mm3 (0.00-0.10); IMMATURE GRAN PERCENT AUTO 1 % (0-1); LYMPHOCYTES ABSOLUTE AUTO 2.36 K/mm3 (0.84-5.20); LYMPHOCYTES PERCENT AUTO 37 % (21-46); MONOCYTES ABSOLUTE AUTO 0.41 K/mm3 (0.16-1.47); MONOCYTES PERCENT AUTO 7 % (4-13); Mean Corpuscular HGB 28.7 pg (26.0-34.0); Mean Corpuscular HGB Conc 32.3 g/dL (31.5-36.5); Mean Corpuscular Volume 89 fL (80-100); Mean Platelet Volume 10.4 fL (9.1-12.4); NEUTROPHILS PERCENT AUTO 53 % (41-73); Platelet Count 189 K/mm3 (150-400); RDW Standard Deviation 45.5 fL (35.1-46.3); Red Blood Cell Count 4.07 M/mm3 (3.80-5.20); White Blood Cell Count 6.35 K/mm3 (4.00-11.30)
[2018-11-12 03:00] LABS: International Normalized Ratio 2.68
[2018-11-12 03:01] LABS: Alanine Aminotransfer (ALT/SGP 27 U/L (12-78); Albumin, Blood 3.5 g/dL (3.4-5.0); Alk Phos 138 U/L (50-136); Anion Gap 8 mmol/L (6-16); Aspartate Aminotrans (AST/SGOT 34 U/L (12-37); Bilirubin, Total 0.2 mg/dL (0.1-1.0); Blood Urea Nitrogen 8 mg/dL (8-24); Bun/Creatinine Ratio 16.4 (12.0-20.0); CO2, Blood 25 mmol/L (21-32); Calcium, Blood 8.4 mg/dL (8.5-10.1); Chloride, Blood 106 mmol/L (98-108); Creatinine, Blood 0.49 mg/dL (0.40-1.00); Globulin, Blood 3.6 g/dL (2.2-4.0); Glomerular Filtration Rate >60 (60-); Glucose, Blood 145 mg/dL (70-99); Potassium, Blood 3.3 mmol/L (3.5-5.5); Sodium, Blood 139 mmol/L (136-145); Total Protein, Blood 7.1 g/dL (6.4-8.2); Troponin I <0.015 ng/mL (0.000-0.040)
[2018-11-12 04:36] LABS: Source, Urine Clean Catch
[2018-11-12 04:38] LABS: Appearance, Urine Cloudy (Clear); Bilirubin, Urine Neg (Neg); Blood, Urine 4+ (Neg); Color, Urine Yellow (P-Yellow); Glucose Qualitative, Urine Neg (Neg); Ketones, Urine Neg (Neg); Leukocyte Esterase, Urine 2+ (Neg); Nitrite, Urine Neg (Neg); Protein, Urine 1+ (Neg); Urobilinogen, Urine NORM (Normal)
[2018-11-12 04:45] LABS: Amorphous Light (0-Heavy); Bacteria Many /hpf; Calcium Oxalate Crystals Mod /hpf; Red Blood Cells, Urine 0-2 /hpf (0-2); Squamous Epithelial Cells Many /hpf (Few); White Blood Cells, Urine 0-2 /hpf (0-5)
== END 2018-11-12 03:46 | disposition home or self-care (01) ==
LOC: ER 02:15
PROVIDERS: Emergency Medicine
DX: R00.2 Palpitations (principal); F17.290 Nicotine dependence, other tobacco product, uncomplicated; Z95.2 Presence of prosthetic heart valve; Z79.01 Long term (current) use of anticoagulants; Z79.899 Other long term (current) drug therapy; Z79.82 Long term (current) use of aspirin; Z91.038 Other insect allergy status; Z88.8 Allergy status to other drugs, medicaments and biological substances
CPT/HCPCS: 36415; 71045; 80053; 81001; 83880; 84484; 85025; 85610; 87086; 93005; 93010; 99285-25

== ENCOUNTER → 2018-11-24 | Outpatient (CLI) | payer OTHER | END | disposition home or self-care (01) | LOC: LAB 19:32 → LAB SHORT 19:32 | DX: R10.9 Unspecified abdominal pain (principal) | CPT/HCPCS: 87086 ==

== ENCOUNTER → 2019-01-25 | Outpatient (CLI) | payer OTHER | END | disposition home or self-care (01) | LOC: LAB 18:00 → LAB SHORT 18:00 | DX: R30.0 Dysuria (principal) | CPT/HCPCS: 87086 ==

== ENCOUNTER 2019-03-18 20:34 | Emergency (ER) | payer OTHER | END 2019-03-18 20:48 | disposition left against medical advice (07) | LOC: ER 20:34 | DX: Z53.21 Procedure and treatment not carried out due to patient leaving prior to being seen by health care provider (principal) ==

== ENCOUNTER → 2019-04-10 | Outpatient (CLI) | payer OTHER | LOC: LAB SHORT 14:15 → LAB 14:15 | DX: R30.0 Dysuria (principal) | CPT/HCPCS: 87077; 87086; 87186 ==

== ENCOUNTER → 2019-06-01 | Outpatient (CLI) | payer OTHER | END | disposition home or self-care (01) | LOC: LAB SHORT 13:50 → LAB 13:50 | DX: R39.15 Urgency of urination (principal) | CPT/HCPCS: 87077; 87086; 87186 ==

== ENCOUNTER 2019-06-14 20:05 | Emergency (ER) | payer OTHER ==
[~2019-06-14] VITALS: Ht 167.6 cm; Wt 121.6 kg
[2019-06-14 20:27] LABS: BASOPHILS ABSOLUTE AUTO 0.04 K/mm3 (0.00-0.23); BASOPHILS PERCENT AUTO 0 % (0-2); EOSINOPHILS PERCENT AUTO 1 % (0-6); Hematocrit 40.8 % (33.0-51.0); Hemoglobin 13.2 g/dL (11.5-16.0); IMMATURE GRAN ABSOLUTE AUTO 0.05 K/mm3 (0.00-0.10); IMMATURE GRAN PERCENT AUTO 1 % (0-1); LYMPHOCYTES ABSOLUTE AUTO 1.51 K/mm3 (0.84-5.20); LYMPHOCYTES PERCENT AUTO 14 % (21-46); MONOCYTES PERCENT AUTO 8 % (4-13); Mean Corpuscular HGB 28.9 pg (26.0-34.0); Mean Corpuscular HGB Conc 32.4 g/dL (31.5-36.5); Mean Corpuscular Volume 89 fL (80-100); Mean Platelet Volume 10.3 fL (9.1-12.4); NEUTROPHILS ABSOLUTE AUTO 8.38 K/mm3 (1.96-9.15); NEUTROPHILS PERCENT AUTO 76 % (41-73); Platelet Count 237 K/mm3 (150-400); RDW Coefficient Variation 13.3 % (11.7-14.2); RDW Standard Deviation 43.4 fL (35.1-46.3); Red Blood Cell Count 4.57 M/mm3 (3.80-5.20); White Blood Cell Count 10.98 K/mm3 (4.00-11.30)
[2019-06-14 20:41] LABS: International Normalized Ratio 2.76; Prothrombin Time Results 27.9 Sec (9.7-11.5)
[2019-06-14 20:51] LABS: Alanine Aminotransfer (ALT/SGP 17 U/L (12-78); Albumin, Blood 3.7 g/dL (3.4-5.0); Albumin/Globulin Ratio 0.9 (0.8-1.8); Alk Phos 145 U/L (50-136); Anion Gap 5 mmol/L (6-16); Aspartate Aminotrans (AST/SGOT 24 U/L (12-37); Bilirubin, Total 0.4 mg/dL (0.1-1.0); Blood Urea Nitrogen 4 mg/dL (8-24); Bun/Creatinine Ratio 11.9 (12.0-20.0); CO2, Blood 27 mmol/L (21-32); Calcium, Blood 8.5 mg/dL (8.5-10.1); Chloride, Blood 99 mmol/L (98-108); Creatinine, Blood 0.34 mg/dL (0.40-1.00); Globulin, Blood 4.2 g/dL (2.2-4.0); Glomerular Filtration Rate >60 (60-); Glucose, Blood 155 mg/dL (70-99); Potassium, Blood 3.8 mmol/L (3.5-5.5); Sodium, Blood 131 mmol/L (136-145); Total Protein, Blood 7.9 g/dL (6.4-8.2); Troponin I <0.015 ng/mL (0.000-0.040)
[2019-06-15] MEDS ORDERED: Prednisone20 MG PO (22:30)
[2019-06-15] MEDS ORDERED: Augmentin 875-1 EACH PO (22:30)
== END 2019-06-14 21:58 | disposition home or self-care (01) ==
LOC: ER 20:05
PROVIDERS: Emergency Medicine
DX: F41.9 Anxiety disorder, unspecified (principal); I10 Essential (primary) hypertension; Z91.030 Bee allergy status; Z88.8 Allergy status to other drugs, medicaments and biological substances; Z88.5 Allergy status to narcotic agent; Z79.899 Other long term (current) drug therapy; Z79.82 Long term (current) use of aspirin; Z79.01 Long term (current) use of anticoagulants; Z87.891 Personal history of nicotine dependence
CPT/HCPCS: 71046; 80053; 83880; 84484; 85025; 85610; 93005; 93010; 96374; 99285-25; J2060; J7030

== ENCOUNTER 2019-06-28 14:41 | Emergency (ER) | payer OTHER ==
[~2019-06-28] VITALS: Ht 167.6 cm; Wt 120.2 kg
[~2019-06-28 14:41] MED LIST changes: +Augmentin 875-1 EACH PO; +Prednisone20 MG PO
[2019-06-28 16:23] LABS: International Normalized Ratio 2.25
[2019-06-28 16:56] LABS: Source, Urine Clean Catch
[2019-06-28 17:07] LABS: Bilirubin, Urine Neg (Neg); Blood, Urine 1+ (Neg); Glucose Qualitative, Urine 3+ (Neg); Ketones, Urine 1+ (Neg); Leukocyte Esterase, Urine Neg (Neg); Nitrite, Urine Neg (Neg); Protein, Urine 2+ (Neg); Urobilinogen, Urine NORM (Normal)
[2019-06-28 17:21] LABS: Appearance, Urine Hazy (Clear); Color, Urine Yellow (P-Yellow); White Blood Cells, Urine 0-2 /hpf (0-5)
[2019-06-28 17:22] LABS: Bacteria Mod /hpf; Squamous Epithelial Cells Few /hpf (Few)
[2019-06-28 17:46] LABS: BASOPHILS ABSOLUTE AUTO 0.04 K/mm3 (0.00-0.23); BASOPHILS PERCENT AUTO 0 % (0-2); EOSINOPHILS PERCENT AUTO 1 % (0-6); Hematocrit 44.3 % (33.0-51.0); Hemoglobin 14.5 g/dL (11.5-16.0); IMMATURE GRAN ABSOLUTE AUTO 0.03 K/mm3 (0.00-0.10); IMMATURE GRAN PERCENT AUTO 0 % (0-1); LYMPHOCYTES ABSOLUTE AUTO 1.96 K/mm3 (0.84-5.20); LYMPHOCYTES PERCENT AUTO 17 % (21-46); MONOCYTES ABSOLUTE AUTO 0.85 K/mm3 (0.16-1.47); MONOCYTES PERCENT AUTO 7 % (4-13); Mean Corpuscular HGB 28.9 pg (26.0-34.0); Mean Corpuscular HGB Conc 32.7 g/dL (31.5-36.5); Mean Corpuscular Volume 88 fL (80-100); Mean Platelet Volume 11.4 fL (9.1-12.4); NEUTROPHILS ABSOLUTE AUTO 8.54 K/mm3 (1.96-9.15); NEUTROPHILS PERCENT AUTO 74 % (41-73); Platelet Count 228 K/mm3 (150-400); RDW Coefficient Variation 13.4 % (11.7-14.2); RDW Standard Deviation 43.6 fL (35.1-46.3); Red Blood Cell Count 5.02 M/mm3 (3.80-5.20); White Blood Cell Count 11.52 K/mm3 (4.00-11.30)
[2019-06-28 17:59] LABS: Alanine Aminotransfer (ALT/SGP 30 U/L (12-78); Albumin, Blood 3.9 g/dL (3.4-5.0); Albumin/Globulin Ratio 0.8 (0.8-1.8); Alk Phos 161 U/L (50-136); Anion Gap 7 mmol/L (6-16); Aspartate Aminotrans (AST/SGOT 53 U/L (12-37); Bilirubin, Total 0.5 mg/dL (0.1-1.0); Blood Urea Nitrogen 7 mg/dL (8-24); Bun/Creatinine Ratio 23.3 (12.0-20.0); CO2, Blood 28 mmol/L (21-32); Chloride, Blood 94 mmol/L (98-108); Globulin, Blood 4.6 g/dL (2.2-4.0); Glomerular Filtration Rate >60 (60-); Glucose, Blood 271 mg/dL (70-99); Sodium, Blood 129 mmol/L (136-145); Total Protein, Blood 8.5 g/dL (6.4-8.2); Troponin I <0.015 ng/mL (0.000-0.040)
== END 2019-06-28 18:38 | disposition home or self-care (01) ==
LOC: ER 14:41
PROVIDERS: Physician Assistant
DX: I10 Essential (primary) hypertension (principal); E87.1 Hypo-osmolality and hyponatremia; F41.9 Anxiety disorder, unspecified; R73.9 Hyperglycemia, unspecified; F17.290 Nicotine dependence, other tobacco product, uncomplicated; Z79.899 Other long term (current) drug therapy
CPT/HCPCS: 36415; 80053; 81001; 83880; 84484; 85025; 85610; 87086; 93005; 93010; 99284-25

== ENCOUNTER → 2019-09-01 | Outpatient (CLI) | payer OTHER ==
[2019-09-01 19:02] LABS: Blood, Urine 1+ (Neg); Glucose Qualitative, Urine Neg (Neg); Ketones, Urine 2+ (Neg); Leukocyte Esterase, Urine 2+ (Neg); Nitrite, Urine Pos (Neg); Protein, Urine 2+ (Neg); Specific Gravity, Urine 1.025 (1.003-1.022); Urobilinogen, Urine NORM (Normal)
[2019-09-01 19:17] LABS: Appearance, Urine Cloudy (Clear); Bilirubin, Urine 1+ (Neg); Color, Urine Amber (P-Yellow)
[2019-09-01 19:18] LABS: Red Blood Cells, Urine 0-2 /hpf (0-2); Squamous Epithelial Cells Mod /hpf (Few)
[2019-09-01 19:20] LABS: Bacteria Mod /hpf
[2019-09-01 19:21] LABS: Calcium Oxalate Crystals Many /hpf; Mucus Light (0-Heavy)
== END | disposition home or self-care (01) ==
LOC: LAB SHORT 18:52 → LAB 18:52
PROVIDERS: Nurse Practitioner Family
DX: N39.0 Urinary tract infection, site not specified (principal)
CPT/HCPCS: 81001; 87086

== ENCOUNTER → 2019-09-15 | Outpatient (CLI) | payer OTHER ==
[2019-09-15 08:59] LABS: Source, Urine Clean Catch
[2019-09-15 11:58] LABS: Bilirubin, Urine Neg (Neg); Blood, Urine 1+ (Neg); Glucose Qualitative, Urine Neg (Neg); Ketones, Urine Neg (Neg); Leukocyte Esterase, Urine 2+ (Neg); Nitrite, Urine Neg (Neg); Protein, Urine Neg (Neg); Specific Gravity, Urine 1.015 (1.003-1.022); Urobilinogen, Urine NORM (Normal)
[2019-09-15 12:19] LABS: Appearance, Urine Clear (Clear); Color, Urine Yellow (P-Yellow)
[2019-09-15 12:20] LABS: Red Blood Cells, Urine 0-2 /hpf (0-2)
[2019-09-15 12:21] LABS: Bacteria Few /hpf; Squamous Epithelial Cells Few /hpf (Few); Yeast/Fungi Urine Few /hpf
== END | disposition home or self-care (01) ==
LOC: LAB SHORT 08:57 → LAB 08:57
PROVIDERS: Nurse Practitioner Family
DX: N39.0 Urinary tract infection, site not specified (principal)
CPT/HCPCS: 81001; 87086

== ENCOUNTER 2019-10-11 13:07 | Emergency (ER) | payer OTHER ==
[~2019-10-11] VITALS: Ht 167.6 cm; Wt 120.2 kg
[2019-10-11 14:22] LABS: Bilirubin, Urine Neg (Neg); Blood, Urine Neg (Neg); Glucose Qualitative, Urine Neg (Neg); Ketones, Urine Neg (Neg); Leukocyte Esterase, Urine Neg (Neg); Nitrite, Urine Neg (Neg); Protein, Urine Neg (Neg); Urobilinogen, Urine NORM (Normal)
[2019-10-11 14:29] LABS: Appearance, Urine Clear (Clear); Color, Urine Yellow (P-Yellow)
== END 2019-10-11 13:36 | disposition left against medical advice (07) ==
LOC: ER 13:07
PROVIDERS: Emergency Medicine
DX: Z53.21 Procedure and treatment not carried out due to patient leaving prior to being seen by health care provider (principal)
CPT/HCPCS: 81003

== ENCOUNTER → 2019-12-18 | Outpatient (CLI) | payer OTHER | END | disposition home or self-care (01) | LOC: LAB 15:12 → LAB SHORT 15:12 | DX: N30.10 Interstitial cystitis (chronic) without hematuria (principal); N32.89 Other specified disorders of bladder | CPT/HCPCS: 87086 ==

== ENCOUNTER 2020-01-23 13:54 | Emergency (ER) | payer OTHER ==
[~2020-01-23] VITALS: Ht 167.6 cm; Wt 119.8 kg
[2020-01-23] MEDS ORDERED: BUPRENORPHINE HC8 MG SL (14:15)
[2020-01-23] MEDS ORDERED: Lisinopril2.5 MG PO (14:16)
[2020-01-23] MEDS ORDERED: WARF6 PO (14:17)
[2020-01-23] MEDS ORDERED: METO25 (14:18)
[2020-01-23] MEDS ORDERED: AMLO5 PO (14:18)
[2020-01-23] MEDS ORDERED: CEPH250A PO (14:19)
[2020-01-23] MEDS ORDERED: OMEP20ER PO (14:20)
[2020-01-23] MEDS ORDERED: CARB200 PO (14:20)
[2020-01-23] MEDS ORDERED: Amlodipine Bes2.5 MG PO (14:20)
[2020-01-23] MEDS ORDERED: METO50 PO (14:21)
[2020-01-23 14:40] LABS: BASOPHILS ABSOLUTE AUTO 0.02 K/mm3 (0.00-0.23); BASOPHILS PERCENT AUTO 0 % (0-2); EOSINOPHILS ABSOLUTE AUTO 0.11 K/mm3 (0.00-0.68); EOSINOPHILS PERCENT AUTO 2 % (0-6); Hematocrit 37.5 % (33.0-51.0); Hemoglobin 11.8 g/dL (11.5-16.0); IMMATURE GRAN ABSOLUTE AUTO 0.03 K/mm3 (0.00-0.10); IMMATURE GRAN PERCENT AUTO 1 % (0-1); LYMPHOCYTES ABSOLUTE AUTO 1.33 K/mm3 (0.84-5.20); LYMPHOCYTES PERCENT AUTO 22 % (21-46); MONOCYTES ABSOLUTE AUTO 0.38 K/mm3 (0.16-1.47); MONOCYTES PERCENT AUTO 6 % (4-13); Mean Corpuscular HGB 28.9 pg (26.0-34.0); Mean Corpuscular HGB Conc 31.5 g/dL (31.5-36.5); Mean Corpuscular Volume 92 fL (80-100); Mean Platelet Volume 10.6 fL (9.1-12.4); NEUTROPHILS ABSOLUTE AUTO 4.17 K/mm3 (1.96-9.15); NEUTROPHILS PERCENT AUTO 69 % (41-73); Platelet Count 181 K/mm3 (150-400); RDW Standard Deviation 44.1 fL (35.1-46.3); Red Blood Cell Count 4.08 M/mm3 (3.80-5.20); White Blood Cell Count 6.04 K/mm3 (4.00-11.30)
[2020-01-23 14:58] LABS: Alanine Aminotransfer (ALT/SGP 14 U/L (12-78); Albumin, Blood 3.3 g/dL (3.4-5.0); Albumin/Globulin Ratio 0.8 (0.8-1.8); Alk Phos 153 U/L (50-136); Anion Gap 7 mmol/L (6-16); Aspartate Aminotrans (AST/SGOT 16 U/L (12-37); Bilirubin, Total 0.3 mg/dL (0.1-1.0); Blood Urea Nitrogen 10 mg/dL (8-24); Bun/Creatinine Ratio 25.8 (12.0-20.0); CO2, Blood 29 mmol/L (21-32); Calcium, Blood 8.4 mg/dL (8.5-10.1); Chloride, Blood 100 mmol/L (98-108); Creatinine, Blood 0.39 mg/dL (0.40-1.00); Globulin, Blood 4.2 g/dL (2.2-4.0); Glomerular Filtration Rate >60 (60-); Glucose, Blood 276 mg/dL (70-99); Magnesium, Blood 1.5 mg/dL (1.6-2.4); Potassium, Blood 3.9 mmol/L (3.5-5.5); Sodium, Blood 136 mmol/L (136-145); Total Protein, Blood 7.5 g/dL (6.4-8.2); Troponin I <0.015 ng/mL (0.000-0.040)
[2020-01-23 15:05] LABS: International Normalized Ratio 1.26; Prothrombin Time Results 13.3 Sec (9.7-11.5)
== END 2020-01-23 15:42 | disposition home or self-care (01) ==
LOC: ER 13:54
PROVIDERS: Emergency Medicine
DX: R55 Syncope and collapse (principal); R53.1 Weakness; I10 Essential (primary) hypertension; F32.9 Major depressive disorder, single episode, unspecified; F17.290 Nicotine dependence, other tobacco product, uncomplicated; Z91.030 Bee allergy status; Z88.8 Allergy status to other drugs, medicaments and biological substances; Z88.4 Allergy status to anesthetic agent; Z79.899 Other long term (current) drug therapy; Z79.82 Long term (current) use of aspirin; Z79.01 Long term (current) use of anticoagulants; Z79.52 Long term (current) use of systemic steroids
CPT/HCPCS: 36415; 80053; 83735; 83880; 84484; 85025; 85610; 93005; 93010; 99284-25

== ENCOUNTER 2020-03-11 11:42 | Emergency (ER) | payer OTHER ==
[~2020-03-11] VITALS: Ht 167.6 cm; Wt 120.2 kg
[~2020-03-11 11:42] MED LIST changes: +AMLO5 PO; +Amlodipine Bes2.5 MG PO; +CARB200 PO; +CEPH250A PO; +METO25; +METO50 PO; +OMEP20ER PO; +WARF6 PO
[2020-03-11 12:44] LABS: BASOPHILS ABSOLUTE AUTO 0.02 K/mm3 (0.00-0.23); BASOPHILS PERCENT AUTO 0 % (0-2); EOSINOPHILS ABSOLUTE AUTO 0.14 K/mm3 (0.00-0.68); EOSINOPHILS PERCENT AUTO 2 % (0-6); Hematocrit 36.3 % (33.0-51.0); Hemoglobin 11.7 g/dL (11.5-16.0); IMMATURE GRAN ABSOLUTE AUTO 0.05 K/mm3 (0.00-0.10); IMMATURE GRAN PERCENT AUTO 1 % (0-1); LYMPHOCYTES ABSOLUTE AUTO 1.25 K/mm3 (0.84-5.20); LYMPHOCYTES PERCENT AUTO 19 % (21-46); MONOCYTES ABSOLUTE AUTO 0.47 K/mm3 (0.16-1.47); MONOCYTES PERCENT AUTO 7 % (4-13); Mean Corpuscular HGB Conc 32.2 g/dL (31.5-36.5); Mean Corpuscular Volume 90 fL (80-100); Mean Platelet Volume 9.8 fL (9.1-12.4); NEUTROPHILS ABSOLUTE AUTO 4.72 K/mm3 (1.96-9.15); NEUTROPHILS PERCENT AUTO 71 % (41-73); Platelet Count 191 K/mm3 (150-400); RDW Coefficient Variation 13.7 % (11.7-14.2); RDW Standard Deviation 44.6 fL (35.1-46.3); Red Blood Cell Count 4.04 M/mm3 (3.80-5.20); White Blood Cell Count 6.65 K/mm3 (4.00-11.30)
[2020-03-11 13:07] LABS: Prothrombin Time Results 44.4 Sec (9.7-11.5)
[2020-03-11 13:08] LABS: International Normalized Ratio 4.52
[2020-03-11 13:10] LABS: Alanine Aminotransfer (ALT/SGP 16 U/L (12-78); Albumin, Blood 3.1 g/dL (3.4-5.0); Albumin/Globulin Ratio 0.7 (0.8-1.8); Alk Phos 167 U/L (50-136); Anion Gap 5 mmol/L (6-16); Aspartate Aminotrans (AST/SGOT 20 U/L (12-37); Bilirubin, Total 0.4 mg/dL (0.1-1.0); Blood Urea Nitrogen 6 mg/dL (8-24); Bun/Creatinine Ratio 15.6 (12.0-20.0); CO2, Blood 30 mmol/L (21-32); Calcium, Blood 8.3 mg/dL (8.5-10.1); Chloride, Blood 102 mmol/L (98-108); Creatinine, Blood 0.38 mg/dL (0.40-1.00); Globulin, Blood 4.2 g/dL (2.2-4.0); Glomerular Filtration Rate >60 (60-); Glucose, Blood 218 mg/dL (70-99); Potassium, Blood 3.7 mmol/L (3.5-5.5); Sodium, Blood 137 mmol/L (136-145); Total Protein, Blood 7.3 g/dL (6.4-8.2)
[2020-03-11 13:30] LABS: Influenza A, PCR Negative (NEGATIVE); Influenza B, PCR Negative (NEGATIVE); Resp Syncytial Virus, PCR Negative (NEGATIVE); SARS-Cov-2 (COVID-19) PCR, MMC Negative (NEGATIVE)
== END 2020-03-11 13:09 | disposition home or self-care (01) ==
LOC: ER 11:42
PROVIDERS: Emergency Medicine; Physician Assistant
DX: S40.022A Contusion of left upper arm, initial encounter (principal); S50.12XA Contusion of left forearm, initial encounter; R07.89 Other chest pain; I10 Essential (primary) hypertension; R79.1 Abnormal coagulation profile; F32.9 Major depressive disorder, single episode, unspecified; F17.290 Nicotine dependence, other tobacco product, uncomplicated; Z20.828 Contact with and (suspected) exposure to other viral communicable diseases; Z79.82 Long term (current) use of aspirin; Z79.01 Long term (current) use of anticoagulants; Z79.899 Other long term (current) drug therapy; Z91.030 Bee allergy status; Z88.8 Allergy status to other drugs, medicaments and biological substances; Z88.4 Allergy status to anesthetic agent; X58.XXXA Exposure to other specified factors, initial encounter
CPT/HCPCS: 0241U; 36415; 80053; 85025; 85610; 85730; 99284

== ENCOUNTER 2020-05-04 18:27 | Emergency (ER) | payer OTHER ==
[~2020-05-04] VITALS: Ht 167.6 cm; Wt 120.2 kg
[2020-08-17] MEDS ORDERED: METH10 (17:14)
[2020-08-17] MEDS ORDERED: Pyridium100 MG PO (17:46)
== END 2020-05-04 18:42 | disposition left against medical advice (07) ==
LOC: ER 18:27
DX: R55 Syncope and collapse (principal); Z53.21 Procedure and treatment not carried out due to patient leaving prior to being seen by health care provider; Z79.82 Long term (current) use of aspirin; Z79.899 Other long term (current) drug therapy; Z79.01 Long term (current) use of anticoagulants
CPT/HCPCS: 99283

== ENCOUNTER 2020-05-10 17:19 | Emergency (ER) | payer OTHER ==
[~2020-05-10] VITALS: Ht 167.6 cm; Wt 120.2 kg
[2020-05-10 17:58] LABS: BASOPHILS ABSOLUTE AUTO 0.03 K/mm3 (0.00-0.23); BASOPHILS PERCENT AUTO 0 % (0-2); EOSINOPHILS ABSOLUTE AUTO 0.11 K/mm3 (0.00-0.68); EOSINOPHILS PERCENT AUTO 1 % (0-6); Hematocrit 43.8 % (33.0-51.0); Hemoglobin 14.2 g/dL (11.5-16.0); IMMATURE GRAN ABSOLUTE AUTO 0.04 K/mm3 (0.00-0.10); IMMATURE GRAN PERCENT AUTO 1 % (0-1); LYMPHOCYTES ABSOLUTE AUTO 2.04 K/mm3 (0.84-5.20); LYMPHOCYTES PERCENT AUTO 26 % (21-46); MONOCYTES ABSOLUTE AUTO 0.67 K/mm3 (0.16-1.47); MONOCYTES PERCENT AUTO 9 % (4-13); Mean Corpuscular HGB 28.6 pg (26.0-34.0); Mean Corpuscular HGB Conc 32.4 g/dL (31.5-36.5); Mean Corpuscular Volume 88 fL (80-100); Mean Platelet Volume 9.9 fL (9.1-12.4); NEUTROPHILS ABSOLUTE AUTO 4.83 K/mm3 (1.96-9.15); NEUTROPHILS PERCENT AUTO 63 % (41-73); Platelet Count 285 K/mm3 (150-400); RDW Coefficient Variation 13.7 % (11.7-14.2); RDW Standard Deviation 43.8 fL (35.1-46.3); Red Blood Cell Count 4.96 M/mm3 (3.80-5.20); White Blood Cell Count 7.72 K/mm3 (4.00-11.30)
[2020-05-10 18:02] LABS: Source, Urine Clean Catch
[2020-05-10 18:07] LABS: Appearance, Urine Cloudy (Clear); Bilirubin, Urine Neg (Neg); Blood, Urine 1+ (Neg); Color, Urine Yellow (P-Yellow); Glucose Qualitative, Urine Neg (Neg); Ketones, Urine Neg (Neg); Leukocyte Esterase, Urine 1+ (Neg); Nitrite, Urine Neg (Neg); Protein, Urine 3+ (Neg); Specific Gravity, Urine 1.015 (1.003-1.022); Urobilinogen, Urine NORM (Normal)
[2020-05-10 18:24] LABS: Amorphous Light (0-Heavy); Bacteria Few /hpf; Red Blood Cells, Urine 0-2 /hpf (0-2); Squamous Epithelial Cells Mod /hpf (Few); White Blood Cells, Urine 0-2 /hpf (0-5); Yeast/Fungi Urine Few /hpf
[2020-05-10 18:24] LABS: Alanine Aminotransfer (ALT/SGP 25 U/L (12-78); Albumin, Blood 3.8 g/dL (3.4-5.0); Albumin/Globulin Ratio 0.7 (0.8-1.8); Alk Phos 191 U/L (50-136); Anion Gap 7 mmol/L (6-16); Aspartate Aminotrans (AST/SGOT 53 U/L (12-37); Bilirubin, Total 0.5 mg/dL (0.1-1.0); Blood Urea Nitrogen 9 mg/dL (8-24); Bun/Creatinine Ratio 21.8 (12.0-20.0); CO2, Blood 28 mmol/L (21-32); Calcium, Blood 9.1 mg/dL (8.5-10.1); Chloride, Blood 96 mmol/L (98-108); Creatinine, Blood 0.41 mg/dL (0.40-1.00); Globulin, Blood 5.3 g/dL (2.2-4.0); Glomerular Filtration Rate >60 (60-); Glucose, Blood 158 mg/dL (70-99); Potassium, Blood 4.3 mmol/L (3.5-5.5); Sodium, Blood 131 mmol/L (136-145); Total Protein, Blood 9.1 g/dL (6.4-8.2)
[2020-05-10] MEDS ORDERED: AMOCLA875 PO (19:03)
[2020-08-17] MEDS ORDERED: METH10 (17:14)
[2020-08-17] MEDS ORDERED: Pyridium100 MG PO (17:46)
== END 2020-05-10 19:22 | disposition home or self-care (01) ==
LOC: ER 17:19
PROVIDERS: Emergency Medicine
DX: K52.9 Noninfective gastroenteritis and colitis, unspecified (principal); R19.00 Intra-abdominal and pelvic swelling, mass and lump, unspecified site; G89.29 Other chronic pain; J40 Bronchitis, not specified as acute or chronic; I11.0 Hypertensive heart disease with heart failure; I50.9 Heart failure, unspecified; E11.9 Type 2 diabetes mellitus without complications; F17.290 Nicotine dependence, other tobacco product, uncomplicated; Z88.8 Allergy status to other drugs, medicaments and biological substances; Z88.4 Allergy status to anesthetic agent; Z79.82 Long term (current) use of aspirin; Z79.01 Long term (current) use of anticoagulants; Z79.899 Other long term (current) drug therapy; Z91.030 Bee allergy status
CPT/HCPCS: 36415; 74177; 80053; 81001; 85025; 87086; 99284-25; A9270; Q9967

== ENCOUNTER 2020-06-02 13:31 | Emergency (ER) | payer OTHER ==
[~2020-06-02] VITALS: Ht 167.6 cm; Wt 120.2 kg
[2020-06-02] MEDS ORDERED: TYLECOD3 PO (17:25)
[2020-08-17] MEDS ORDERED: METH10 (17:14)
[2020-08-17] MEDS ORDERED: Pyridium100 MG PO (17:46)
== END 2020-06-02 17:35 | disposition home or self-care (01) ==
LOC: ER 13:31
DX: R10.2 Pelvic and perineal pain (principal); G89.29 Other chronic pain; F11.23 Opioid dependence with withdrawal; T40.2X5A Adverse effect of other opioids, initial encounter; I11.0 Hypertensive heart disease with heart failure; I50.9 Heart failure, unspecified; E11.9 Type 2 diabetes mellitus without complications; F17.290 Nicotine dependence, other tobacco product, uncomplicated; Z79.82 Long term (current) use of aspirin; Z79.899 Other long term (current) drug therapy; Z88.4 Allergy status to anesthetic agent; Z91.030 Bee allergy status; Z88.8 Allergy status to other drugs, medicaments and biological substances; Z79.01 Long term (current) use of anticoagulants
CPT/HCPCS: 93005; 93010; 99283-25

== ENCOUNTER → 2020-07-20 | Outpatient (CLI) | payer OTHER ==
[~2020-07-20] MED LIST changes: +Pyridium100 MG PO; +TYLECOD3 PO
== END | disposition home or self-care (01) ==
LOC: LAB SHORT 07:15 → LAB 07:15
DX: R30.0 Dysuria (principal)
CPT/HCPCS: 87077; 87086; 87186

== ENCOUNTER 2020-08-01 23:28 | Emergency (ER) | payer OTHER ==
[~2020-08-01] VITALS: Ht 167.6 cm; Wt 117.9 kg
== END 2020-08-02 01:06 | disposition home or self-care (01) ==
LOC: ER 23:28
DX: R07.9 Chest pain, unspecified (principal); F17.290 Nicotine dependence, other tobacco product, uncomplicated; Z79.899 Other long term (current) drug therapy; Z88.4 Allergy status to anesthetic agent; Z91.030 Bee allergy status
CPT/HCPCS: 80053; 81001; 81025; 84484; 85025; 87086; 93005; 93010; 99285-25; G0480; J7030

== ENCOUNTER 2020-08-24 14:19 | Emergency (ER) | payer OTHER ==
[~2020-08-24] VITALS: Ht 167.6 cm; Wt 117.9 kg
[2020-08-24 15:00] LABS: BASOPHILS ABSOLUTE AUTO 0.02 K/mm3 (0.00-0.23); BASOPHILS PERCENT AUTO 0 % (0-2); EOSINOPHILS ABSOLUTE AUTO 0.16 K/mm3 (0.00-0.68); EOSINOPHILS PERCENT AUTO 2 % (0-6); Hematocrit 30.7 % (33.0-51.0); Hemoglobin 9.8 g/dL (11.5-16.0); IMMATURE GRAN PERCENT AUTO 1 % (0-1); LYMPHOCYTES ABSOLUTE AUTO 1.18 K/mm3 (0.84-5.20); LYMPHOCYTES PERCENT AUTO 17 % (21-46); MONOCYTES ABSOLUTE AUTO 0.39 K/mm3 (0.16-1.47); MONOCYTES PERCENT AUTO 6 % (4-13); Mean Corpuscular HGB Conc 31.9 g/dL (31.5-36.5); Mean Corpuscular Volume 94 fL (80-100); Mean Platelet Volume 10.2 fL (9.1-12.4); NEUTROPHILS PERCENT AUTO 74 % (41-73); Platelet Count 240 K/mm3 (150-400); Red Blood Cell Count 3.27 M/mm3 (3.80-5.20); White Blood Cell Count 7.05 K/mm3 (4.00-11.30)
[2020-08-24 16:17] LABS: International Normalized Ratio 3.02; Prothrombin Time Results 30.6 Sec (9.7-11.5)
[2020-08-24 16:49] LABS: Alanine Aminotransfer (ALT/SGP 16 U/L (12-78); Albumin/Globulin Ratio 0.8 (0.8-1.8); Alk Phos 141 U/L (50-136); Anion Gap 6 mmol/L (6-16); Aspartate Aminotrans (AST/SGOT 17 U/L (12-37); Bilirubin, Total 0.2 mg/dL (0.1-1.0); Blood Urea Nitrogen 6 mg/dL (8-24); Bun/Creatinine Ratio 13.3 (12.0-20.0); CO2, Blood 27 mmol/L (21-32); Calcium, Blood 8.1 mg/dL (8.5-10.1); Chloride, Blood 100 mmol/L (98-108); Creatinine, Blood 0.45 mg/dL (0.40-1.00); Globulin, Blood 3.9 g/dL (2.2-4.0); Glomerular Filtration Rate >60 (60-); Glucose, Blood 180 mg/dL (70-99); Potassium, Blood 3.8 mmol/L (3.5-5.5); Sodium, Blood 133 mmol/L (136-145); Total Protein, Blood 6.9 g/dL (6.4-8.2)
== END 2020-08-24 17:54 | disposition home or self-care (01) ==
LOC: ER 14:19
PROVIDERS: Emergency Medicine
DX: R07.9 Chest pain, unspecified (principal); Z79.01 Long term (current) use of anticoagulants; Z79.899 Other long term (current) drug therapy; Z88.4 Allergy status to anesthetic agent; Z91.030 Bee allergy status
CPT/HCPCS: 71045; 71260; 80053; 83880; 84484; 85025; 85610; 93005; 93010; 99285-25; Q9967

== ENCOUNTER → 2020-08-31 | Outpatient (CLI) | payer OTHER ==
[2020-09-04 13:11] LABS: COTININE Positive ng/mL (Cutoff=300)
== END ==
LOC: LAB SHORT 10:31 → LAB 10:31
PROVIDERS: Student in an Organized Health Care Education/Training Program
DX: F17.210 Nicotine dependence, cigarettes, uncomplicated (principal)

== ENCOUNTER 2020-11-02 10:05 | Emergency (ER) | payer OTHER ==
[~2020-11-02] VITALS: Ht 167.6 cm; Wt 117.9 kg
[2020-11-02 10:59] LABS: Source, Urine Clean Catch
[2020-11-02 11:09] LABS: Appearance, Urine Hazy (Clear); Blood, Urine 1+ (Neg); Color, Urine Yellow (P-Yellow); Glucose Qualitative, Urine Neg (Neg); Ketones, Urine 1+ (Neg); Leukocyte Esterase, Urine 1+ (Neg); Nitrite, Urine Neg (Neg); Protein, Urine 2+ (Neg); Urobilinogen, Urine 1+ (Normal)
[2020-11-02 11:23] LABS: Bilirubin, Urine 1+ (Neg)
[2020-11-02 11:26] LABS: Red Blood Cells, Urine 0-2 /hpf (0-2)
[2020-11-02 11:27] LABS: Bacteria Few /hpf; Squamous Epithelial Cells Many /hpf (Few)
[2020-11-02] MEDS ORDERED: QUET200 PO (11:32)
[2020-11-02] MEDS ORDERED: Diflucan100 MG PO (11:32)
[2020-11-02] MEDS ORDERED: Pyridium200 MG PO (11:36)
== END 2020-11-02 11:46 | disposition home or self-care (01) ==
LOC: ER 10:05
PROVIDERS: Emergency Medicine
DX: N30.90 Cystitis, unspecified without hematuria (principal); I50.9 Heart failure, unspecified; E11.9 Type 2 diabetes mellitus without complications; F17.290 Nicotine dependence, other tobacco product, uncomplicated; Z87.448 Personal history of other diseases of urinary system; Z91.030 Bee allergy status; Z79.899 Other long term (current) drug therapy; Z79.82 Long term (current) use of aspirin; Z79.01 Long term (current) use of anticoagulants
CPT/HCPCS: 81001; 87086; 99283

== ENCOUNTER → 2021-02-02 | Outpatient (CLI) | payer OTHER | END | disposition home or self-care (01) | LOC: LAB SHORT 08:00 → LAB 08:00 | DX: R35.0 Frequency of micturition (principal) | CPT/HCPCS: 87086 ==

== ENCOUNTER 2021-02-24 06:19 | Emergency (ER) | payer OTHER ==
[~2021-02-24] VITALS: Ht 167.6 cm; Wt 117.9 kg
[2021-02-24 08:05] LABS: BASOPHILS ABSOLUTE AUTO 0.03 K/mm3 (0.00-0.23); BASOPHILS PERCENT AUTO 0 % (0-2); EOSINOPHILS ABSOLUTE AUTO 0.13 K/mm3 (0.00-0.68); EOSINOPHILS PERCENT AUTO 1 % (0-6); Hematocrit 38.6 % (33.0-51.0); Hemoglobin 12.6 g/dL (11.5-16.0); IMMATURE GRAN ABSOLUTE AUTO 0.05 K/mm3 (0.00-0.10); IMMATURE GRAN PERCENT AUTO 1 % (0-1); LYMPHOCYTES ABSOLUTE AUTO 1.77 K/mm3 (0.84-5.20); LYMPHOCYTES PERCENT AUTO 18 % (21-46); MONOCYTES ABSOLUTE AUTO 0.63 K/mm3 (0.16-1.47); MONOCYTES PERCENT AUTO 6 % (4-13); Mean Corpuscular HGB 29.4 pg (26.0-34.0); Mean Corpuscular HGB Conc 32.6 g/dL (31.5-36.5); Mean Corpuscular Volume 90 fL (80-100); Mean Platelet Volume 10.1 fL (9.1-12.4); NEUTROPHILS ABSOLUTE AUTO 7.42 K/mm3 (1.96-9.15); NEUTROPHILS PERCENT AUTO 74 % (41-73); Platelet Count 251 K/mm3 (150-400); RDW Coefficient Variation 14.2 % (11.7-14.2); RDW Standard Deviation 46.5 fL (35.1-46.3); Red Blood Cell Count 4.29 M/mm3 (3.80-5.20); White Blood Cell Count 10.03 K/mm3 (4.00-11.30)
[2021-02-24 08:19] LABS: Alanine Aminotransfer (ALT/SGP 14 U/L (12-78); Albumin, Blood 3.1 g/dL (3.4-5.0); Albumin/Globulin Ratio 0.6 (0.8-1.8); Alk Phos 162 U/L (50-136); Anion Gap 5 mmol/L (6-16); Aspartate Aminotrans (AST/SGOT 21 U/L (12-37); Bilirubin, Total 0.2 mg/dL (0.1-1.0); Blood Urea Nitrogen 11 mg/dL (8-24); Bun/Creatinine Ratio 17.7 (12.0-20.0); CO2, Blood 30 mmol/L (21-32); Chloride, Blood 101 mmol/L (98-108); Creatinine, Blood 0.62 mg/dL (0.40-1.00); Globulin, Blood 4.8 g/dL (2.2-4.0); Glomerular Filtration Rate >60 (60-); Glucose, Blood 119 mg/dL (70-99); Potassium, Blood 4.2 mmol/L (3.5-5.5); Sodium, Blood 136 mmol/L (136-145); Total Protein, Blood 7.9 g/dL (6.4-8.2)
[2021-02-24 08:53] LABS: Source, Urine Voided
[2021-02-24 09:07] LABS: Appearance, Urine Hazy (Clear); Bilirubin, Urine Neg (Neg); Blood, Urine 4+ (Neg); Color, Urine Amber (P-Yellow); Glucose Qualitative, Urine Neg (Neg); Ketones, Urine Neg (Neg); Leukocyte Esterase, Urine 2+ (Neg); Nitrite, Urine Neg (Neg); Protein, Urine 2+ (Neg); Urobilinogen, Urine NORM (Normal); pH, Urine 6.5 (5.0-8.0)
[2021-02-24 09:20] LABS: International Normalized Ratio 3.98; Prothrombin Time Results 38.2 Sec (9.7-11.5)
[2021-02-24 09:27] LABS: Bacteria Mod /hpf; Red Blood Cells, Urine TNTC /hpf (0-2); Squamous Epithelial Cells Few /hpf (Few)
[2021-02-24] MEDS ORDERED: CEFP200 PO (10:25)
== END 2021-02-24 10:55 | disposition home or self-care (01) ==
LOC: ER 06:19
PROVIDERS: Emergency Medicine
DX: N30.91 Cystitis, unspecified with hematuria (principal); N39.0 Urinary tract infection, site not specified; R79.1 Abnormal coagulation profile; I50.9 Heart failure, unspecified; E11.9 Type 2 diabetes mellitus without complications; F17.290 Nicotine dependence, other tobacco product, uncomplicated; Z91.030 Bee allergy status; Z88.8 Allergy status to other drugs, medicaments and biological substances; Z79.82 Long term (current) use of aspirin; Z79.899 Other long term (current) drug therapy
CPT/HCPCS: 36415; 51798; 74177; 80053; 81001; 83690; 85025; 85610; 85730; 87077; 87086; 87186; 93005; 93010; 96374; 96375; 99284-25; J0696; J2270; J2405; J7030; Q9967

== ENCOUNTER 2021-04-01 23:13 | Emergency (ER) | payer OTHER ==
[~2021-04-01] VITALS: Ht 167.6 cm; Wt 117.9 kg
[~2021-04-01 23:13] MED LIST changes: +CEFP200 PO; +Voltaren100 GM TOP
[2021-04-02 00:10] LABS: Source, Urine Clean Catch
[2021-04-02 00:13] LABS: BASOPHILS ABSOLUTE AUTO 0.02 K/mm3 (0.00-0.23); BASOPHILS PERCENT AUTO 0 % (0-2); EOSINOPHILS PERCENT AUTO 1 % (0-6); Hematocrit 35.3 % (33.0-51.0); IMMATURE GRAN ABSOLUTE AUTO 0.03 K/mm3 (0.00-0.10); IMMATURE GRAN PERCENT AUTO 0 % (0-1); LYMPHOCYTES ABSOLUTE AUTO 1.27 K/mm3 (0.84-5.20); LYMPHOCYTES PERCENT AUTO 14 % (21-46); MONOCYTES ABSOLUTE AUTO 0.42 K/mm3 (0.16-1.47); MONOCYTES PERCENT AUTO 5 % (4-13); Mean Corpuscular HGB 28.9 pg (26.0-34.0); Mean Corpuscular HGB Conc 31.2 g/dL (31.5-36.5); Mean Corpuscular Volume 93 fL (80-100); Mean Platelet Volume 10.2 fL (9.1-12.4); NEUTROPHILS PERCENT AUTO 80 % (41-73); Platelet Count 234 K/mm3 (150-400); RDW Coefficient Variation 14.6 % (11.7-14.2); RDW Standard Deviation 49.2 fL (35.1-46.3); White Blood Cell Count 9.34 K/mm3 (4.00-11.30)
[2021-04-02 00:15] LABS: Blood, Urine Neg (Neg); Glucose Qualitative, Urine 2+ (Neg); Ketones, Urine 1+ (Neg); Leukocyte Esterase, Urine 1+ (Neg); Nitrite, Urine Neg (Neg); Protein, Urine 2+ (Neg); Specific Gravity, Urine 1.025 (1.003-1.022); Urobilinogen, Urine 2+ (Normal)
[2021-04-02 00:35] LABS: Alanine Aminotransfer (ALT/SGP 16 U/L (12-78); Albumin, Blood 2.9 g/dL (3.4-5.0); Albumin/Globulin Ratio 0.8 (0.8-1.8); Alk Phos 144 U/L (50-136); Anion Gap 8 mmol/L (6-16); Aspartate Aminotrans (AST/SGOT 18 U/L (12-37); Bilirubin, Total 0.2 mg/dL (0.1-1.0); Blood Urea Nitrogen 13 mg/dL (8-24); Bun/Creatinine Ratio 25.3 (12.0-20.0); CO2, Blood 26 mmol/L (21-32); Calcium, Blood 8.1 mg/dL (8.5-10.1); Chloride, Blood 103 mmol/L (98-108); Creatinine, Blood 0.51 mg/dL (0.40-1.00); Globulin, Blood 3.5 g/dL (2.2-4.0); Glomerular Filtration Rate >60 (60-); Glucose, Blood 240 mg/dL (70-99); Potassium, Blood 3.7 mmol/L (3.5-5.5); Sodium, Blood 137 mmol/L (136-145); Total Protein, Blood 6.4 g/dL (6.4-8.2)
[2021-04-02] MEDS ORDERED: CONEST.625 PO (00:40)
[2021-04-02] MEDS ORDERED: MGO PO (00:40)
[2021-04-02] MEDS ORDERED: ZANAFLEX4 M8 PO (00:40)
[2021-04-02] MEDS ORDERED: ALBU2.5V5 (00:41)
[2021-04-02] MEDS ORDERED: ERGO400 (00:42)
[2021-04-02] MEDS ORDERED: CLARITIN-D 121 EAC1 PO (00:44)
[2021-04-02] MEDS ORDERED: APHEN325 M2 PO (00:44)
[2021-04-02] MEDS ORDERED: QUETIAPINE FUM200 M8 PO (00:45)
[2021-04-02] MEDS ORDERED: METFORMIN HCL500 M2 PO (00:46)
[2021-04-02] MEDS ORDERED: JANTOVEN5 M2 PO (00:46)
[2021-04-02 00:52] LABS: Appearance, Urine Cloudy (Clear); Bilirubin, Urine 1+ (Neg); Color, Urine Amber (P-Yellow)
[2021-04-02 00:54] LABS: Amorphous Mod (0-Heavy); Bacteria Many /hpf; Red Blood Cells, Urine Not Seen /hpf (0-2); Squamous Epithelial Cells Many /hpf (Few); Yeast/Fungi Urine Few /hpf
== END 2021-04-02 02:38 | disposition left against medical advice (07) ==
LOC: ER 23:13
PROVIDERS: Student in an Organized Health Care Education/Training Program
DX: Z53.21 Procedure and treatment not carried out due to patient leaving prior to being seen by health care provider (principal)
CPT/HCPCS: 80053; 81001; 85025; 87086; 93005; 93010

== ENCOUNTER → 2021-06-19 | Outpatient (CLI) | payer OTHER ==
[~2021-06-19] MED LIST changes: +ALBU2.5V5; +APHEN325 M2 PO; +CLARITIN-D 121 EAC1 PO; +ERGO400; +JANTOVEN5 M2 PO; +METFORMIN HCL500 M2 PO; +MGO PO; +QUETIAPINE FUM200 M8 PO; +ZANAFLEX4 M8 PO
[2021-06-19 09:51] LABS: Source, Urine Clean Catch
[2021-06-19 11:26] LABS: Bilirubin, Urine Neg (Neg); Blood, Urine Neg (Neg); Glucose Qualitative, Urine Neg (Neg); Ketones, Urine Neg (Neg); Leukocyte Esterase, Urine Neg (Neg); Nitrite, Urine Neg (Neg); Protein, Urine Neg (Neg); Urobilinogen, Urine 1+ (Normal)
[2021-06-19 11:46] LABS: Appearance, Urine Clear (Clear); Color, Urine Pale Yellow (P-Yellow)
== END | disposition home or self-care (01) ==
LOC: LAB SHORT 08:55 → LAB 08:55
PROVIDERS: Student in an Organized Health Care Education/Training Program
DX: N30.10 Interstitial cystitis (chronic) without hematuria (principal); B37.49 Other urogenital candidiasis
CPT/HCPCS: 81003

== ENCOUNTER 2021-08-12 19:17 | Emergency (ER) | payer OTHER ==
[~2021-08-12] VITALS: Ht 167.6 cm; Wt 117.9 kg
[2021-08-12 19:57] LABS: BASOPHILS ABSOLUTE AUTO 0.02 K/mm3 (0.00-0.23); BASOPHILS PERCENT AUTO 0 % (0-2); EOSINOPHILS ABSOLUTE AUTO 0.13 K/mm3 (0.00-0.68); EOSINOPHILS PERCENT AUTO 2 % (0-6); Hematocrit 35.4 % (33.0-51.0); Hemoglobin 11.2 g/dL (11.5-16.0); IMMATURE GRAN ABSOLUTE AUTO 0.04 K/mm3 (0.00-0.10); IMMATURE GRAN PERCENT AUTO 1 % (0-1); LYMPHOCYTES ABSOLUTE AUTO 1.13 K/mm3 (0.84-5.20); LYMPHOCYTES PERCENT AUTO 13 % (21-46); MONOCYTES ABSOLUTE AUTO 0.55 K/mm3 (0.16-1.47); MONOCYTES PERCENT AUTO 6 % (4-13); Mean Corpuscular HGB 28.1 pg (26.0-34.0); Mean Corpuscular HGB Conc 31.6 g/dL (31.5-36.5); Mean Corpuscular Volume 89 fL (80-100); Mean Platelet Volume 9.9 fL (9.1-12.4); NEUTROPHILS ABSOLUTE AUTO 6.86 K/mm3 (1.96-9.15); NEUTROPHILS PERCENT AUTO 79 % (41-73); Platelet Count 264 K/mm3 (150-400); RDW Coefficient Variation 14.4 % (11.7-14.2); RDW Standard Deviation 46.5 fL (35.1-46.3); Red Blood Cell Count 3.99 M/mm3 (3.80-5.20); White Blood Cell Count 8.73 K/mm3 (4.00-11.30)
[2021-08-12 19:59] LABS: Source, Urine Clean Catch
[2021-08-12 20:10] LABS: Alanine Aminotransfer (ALT/SGP 18 U/L (12-78); Albumin/Globulin Ratio 0.6 (0.8-1.8); Alk Phos 179 U/L (50-136); Anion Gap 5 mmol/L (6-16); Aspartate Aminotrans (AST/SGOT 25 U/L (12-37); Bilirubin, Total 0.3 mg/dL (0.1-1.0); Blood Urea Nitrogen 7 mg/dL (8-24); Bun/Creatinine Ratio 16.1 (12.0-20.0); CO2, Blood 30 mmol/L (21-32); Calcium, Blood 8.6 mg/dL (8.5-10.1); Chloride, Blood 99 mmol/L (98-108); Creatinine, Blood 0.43 mg/dL (0.40-1.00); Globulin, Blood 4.8 g/dL (2.2-4.0); Glomerular Filtration Rate >60 (60-); Glucose, Blood 143 mg/dL (70-99); Potassium, Blood 4.6 mmol/L (3.5-5.5); Sodium, Blood 134 mmol/L (136-145); Total Protein, Blood 7.8 g/dL (6.4-8.2)
[2021-08-12 20:19] LABS: Appearance, Urine Clear (Clear); Bilirubin, Urine Neg (Neg); Blood, Urine Neg (Neg); Color, Urine Yellow (P-Yellow); Glucose Qualitative, Urine Neg (Neg); Ketones, Urine Neg (Neg); Leukocyte Esterase, Urine Neg (Neg); Nitrite, Urine Neg (Neg); Protein, Urine Neg (Neg); Urobilinogen, Urine NORM (Normal)
[2021-08-12] MEDS ORDERED: ALBU90OI INH (22:52)
[2021-08-12] MEDS ORDERED: ONDA4ODT MM (22:54)
[2021-08-12] MEDS ORDERED: PROM12.5S PR (22:54)
== END 2021-08-12 23:45 | disposition home or self-care (01) ==
LOC: ER 19:17
PROVIDERS: Student in an Organized Health Care Education/Training Program
DX: J44.9 Chronic obstructive pulmonary disease, unspecified (principal); R11.2 Nausea with vomiting, unspecified; R30.0 Dysuria; I50.9 Heart failure, unspecified; E11.9 Type 2 diabetes mellitus without complications; Z87.891 Personal history of nicotine dependence; Z79.899 Other long term (current) drug therapy
CPT/HCPCS: 80053; 81003; 83690; 85025; 93005; 93010; 94640; 94664; 96374; 96375; 99284-25; J1885; J2765

== ENCOUNTER 2021-08-26 07:10 | Emergency (ER) | payer OTHER ==
[~2021-08-26] VITALS: Ht 167.6 cm; Wt 117.9 kg
[~2021-08-26 07:10] MED LIST changes: +ONDA4ODT MM; +PROM12.5S PR
[2021-08-26] MEDS ORDERED: KETO10 PO (08:29)
== END 2021-08-26 08:50 | disposition home or self-care (01) ==
LOC: ER 07:10
DX: S80.01XA Contusion of right knee, initial encounter (principal); I50.9 Heart failure, unspecified; E11.9 Type 2 diabetes mellitus without complications; J44.9 Chronic obstructive pulmonary disease, unspecified; F17.290 Nicotine dependence, other tobacco product, uncomplicated; Z88.8 Allergy status to other drugs, medicaments and biological substances; Z91.030 Bee allergy status; Z91.038 Other insect allergy status; Z79.01 Long term (current) use of anticoagulants; Z79.51 Long term (current) use of inhaled steroids; Z79.82 Long term (current) use of aspirin; Z79.899 Other long term (current) drug therapy; W19.XXXA Unspecified fall, initial encounter
CPT/HCPCS: 73564; J1885

== ENCOUNTER → 2021-09-25 | Outpatient (CLI) | payer OTHER ==
[~2021-09-25] MED LIST changes: +KETO10 PO
== END ==
LOC: LAB 11:00 → LAB SHORT 11:00
DX: R30.0 Dysuria (principal)
CPT/HCPCS: 87077; 87086; 87186

== ENCOUNTER 2021-10-08 08:04 | Emergency (ER) | payer OTHER ==
[~2021-10-08] VITALS: Ht 167.6 cm; Wt 122.5 kg
[~2021-10-08 08:04] MED LIST changes: +ACET500 PO; -ALBU2.5V5; +ALBU2.5V5 INH; +METH10 PO; +OXYC5 PO
== END 2021-10-08 09:24 | disposition home or self-care (01) ==
LOC: ER 08:04
DX: Z76.89 Persons encountering health services in other specified circumstances (principal); F17.290 Nicotine dependence, other tobacco product, uncomplicated; I50.9 Heart failure, unspecified; E11.9 Type 2 diabetes mellitus without complications; Z79.84 Long term (current) use of oral hypoglycemic drugs; Z79.899 Other long term (current) drug therapy
CPT/HCPCS: A9270

== ENCOUNTER → 2021-10-09 | Outpatient (CLI) | payer OTHER | END | disposition home or self-care (01) | LOC: LAB 11:20 → LAB SHORT 11:20 | DX: R31.9 Hematuria, unspecified (principal) | CPT/HCPCS: 87086 ==

== ENCOUNTER 2021-10-13 12:16 | Observation (INO) | payer OTHER ==
[~2021-10-13] VITALS: Ht 167.6 cm; Wt 122.5 kg
[2021-10-13 16:27] LABS: BASOPHILS ABSOLUTE AUTO 0.03 K/mm3 (0.00-0.23); BASOPHILS PERCENT AUTO 0 % (0-2); EOSINOPHILS ABSOLUTE AUTO 0.09 K/mm3 (0.00-0.68); EOSINOPHILS PERCENT AUTO 1 % (0-6); Hematocrit 33.5 % (33.0-51.0); Hemoglobin 10.4 g/dL (11.5-16.0); IMMATURE GRAN ABSOLUTE AUTO 0.08 K/mm3 (0.00-0.10); IMMATURE GRAN PERCENT AUTO 1 % (0-1); LYMPHOCYTES ABSOLUTE AUTO 1.72 K/mm3 (0.84-5.20); LYMPHOCYTES PERCENT AUTO 18 % (21-46); MONOCYTES PERCENT AUTO 7 % (4-13); Mean Corpuscular HGB 29.9 pg (26.0-34.0); Mean Corpuscular Volume 96 fL (80-100); Mean Platelet Volume 9.2 fL (9.1-12.4); NEUTROPHILS PERCENT AUTO 73 % (41-73); Platelet Count 326 K/mm3 (150-400); RDW Coefficient Variation 19.4 % (11.7-14.2); RDW Standard Deviation 67.7 fL (35.1-46.3); Red Blood Cell Count 3.48 M/mm3 (3.80-5.20); White Blood Cell Count 9.52 K/mm3 (4.00-11.30)
[2021-10-13 16:55] LABS: Ethanol (Alcohol), Blood, Med <3 mg/dL; Salicylate <1.7 mg/dL (2.8-20.0)
[2021-10-13 17:11] LABS: Alanine Aminotransfer (ALT/SGP 13 U/L (12-78); Albumin, Blood 3.2 g/dL (3.4-5.0); Albumin/Globulin Ratio 0.7 (0.8-1.8); Alk Phos 137 U/L (50-136); Anion Gap 7 mmol/L (6-16); Aspartate Aminotrans (AST/SGOT 20 U/L (12-37); Bilirubin, Total 0.5 mg/dL (0.1-1.0); Blood Urea Nitrogen 12 mg/dL (8-24); Bun/Creatinine Ratio 17.9 (12.0-20.0); CO2, Blood 28 mmol/L (21-32); Calcium, Blood 8.7 mg/dL (8.5-10.1); Chloride, Blood 99 mmol/L (98-108); Creatinine, Blood 0.67 mg/dL (0.40-1.00); Globulin, Blood 4.7 g/dL (2.2-4.0); Glomerular Filtration Rate 106 (60-); Glucose, Blood 93 mg/dL (70-99); Potassium, Blood 3.9 mmol/L (3.5-5.5); Sodium, Blood 134 mmol/L (136-145); Total Protein, Blood 7.9 g/dL (6.4-8.2)
[2021-10-13 18:01] LABS: Acetaminophen, Random <2.0 ug/mL (10.0-30.0)
[2021-10-13 19:35] LABS: Influenza A, PCR NEGATIVE (NEGATIVE); Influenza B, PCR NEGATIVE (NEGATIVE); Resp Syncytial Virus, PCR NEGATIVE (NEGATIVE); SARS-Cov-2 (COVID-19) PCR, MMC NEGATIVE (NEGATIVE)
[2021-10-13 21:26] LABS: Source, Urine Clean Catch
[2021-10-13 21:30] LABS: Appearance, Urine Hazy (Clear); Bilirubin, Urine Neg (Neg); Blood, Urine Neg (Neg); Color, Urine Yellow (P-Yellow); Glucose Qualitative, Urine Neg (Neg); Ketones, Urine Neg (Neg); Leukocyte Esterase, Urine Neg (Neg); Nitrite, Urine Neg (Neg); Protein, Urine Neg (Neg); Urobilinogen, Urine NORM (Normal)
[2021-10-13 21:42] LABS: Bacteria Rare /hpf; Red Blood Cells, Urine Not Seen /hpf (0-2); Squamous Epithelial Cells Few /hpf (Few); White Blood Cells, Urine 0-2 /hpf (0-5); Yeast/Fungi Urine Few /hpf
[2021-10-13 21:51] LABS: U Amphetamine Screen Not Detected; U Barbituate Screen Not Detected; U Benzodiazapine Screen DETECTED; U Buprenorphine Screen Not Detected; U Cocaine Screen Not Detected; U Methadone Screen DETECTED; U Methamphetamine Screen Not Detected; U Opiates Screen Not Detected; U Oxycodone Screen Not Detected; U Phencyclidine Screen Not Detected; U Propoxyphene Screen Not Detected
[2021-10-13 21:51] LABS: Prothrombin Time Results 43.1 Sec (9.7-11.5)
[2021-10-13 21:52] LABS: U Cannabinoids Screen Not Detected
[2021-10-13 21:59] LABS: International Normalized Ratio 4.53
== END 2021-10-13 22:22 | disposition home or self-care (01) ==
LOC: ER 12:16 → EOR 12:17
PROVIDERS: Student in an Organized Health Care Education/Training Program; ADMIT Emergency Medicine
DX: F41.9 Anxiety disorder, unspecified (principal); R45.851 Suicidal ideations; I50.9 Heart failure, unspecified; F17.290 Nicotine dependence, other tobacco product, uncomplicated; Z79.899 Other long term (current) drug therapy; Z20.822 Contact with and (suspected) exposure to COVID-19
CPT/HCPCS: 0241U; 36415; 80053; 81001; 81025; 84484; 85025; 85610; A9270; G0480

== ENCOUNTER 2021-10-14 10:46 | Emergency (ER) | payer OTHER ==
[~2021-10-14] VITALS: Ht 162.6 cm; Wt 99.8 kg
[2021-10-15] MEDS ORDERED: CEPH500 PO (07:16)
== END 2021-10-14 11:29 | disposition home or self-care (01) ==
LOC: ER 10:46
DX: F11.23 Opioid dependence with withdrawal (principal); E11.9 Type 2 diabetes mellitus without complications; I50.9 Heart failure, unspecified; F17.290 Nicotine dependence, other tobacco product, uncomplicated; Z88.5 Allergy status to narcotic agent; Z88.8 Allergy status to other drugs, medicaments and biological substances; Z91.038 Other insect allergy status; Z79.899 Other long term (current) drug therapy
CPT/HCPCS: A9270

== ENCOUNTER 2021-10-15 01:27 | Emergency (ER) | payer OTHER ==
[~2021-10-15] VITALS: Ht 154.9 cm; Wt 2.3 kg
[2021-10-15 03:17] LABS: Source, Urine Straight Cath
[2021-10-15 03:19] LABS: Blood, Urine 1+ (Neg); Glucose Qualitative, Urine Neg (Neg); Ketones, Urine 1+ (Neg); Leukocyte Esterase, Urine 3+ (Neg); Nitrite, Urine Pos (Neg); Protein, Urine 3+ (Neg); Specific Gravity, Urine 1.025 (1.003-1.022); Urobilinogen, Urine 3+ (Normal)
[2021-10-15 03:25] LABS: Appearance, Urine Hazy (Clear); Bilirubin, Urine 1+ (Neg); Color, Urine Amber (P-Yellow)
[2021-10-15 03:31] LABS: Bacteria Many /hpf; Red Blood Cells, Urine 0-2 /hpf (0-2); Squamous Epithelial Cells Few /hpf (Few); White Blood Cells, Urine 50-100 /hpf (0-5); Yeast/Fungi Urine Few /hpf
[2021-10-15 03:44] LABS: U Amphetamine Screen Not Detected; U Benzodiazapine Screen DETECTED; U Cocaine Screen DETECTED; U Methadone Screen DETECTED; U Methamphetamine Screen Not Detected
[2021-10-15 03:45] LABS: U Barbituate Screen Not Detected; U Buprenorphine Screen Not Detected; U Cannabinoids Screen Not Detected; U Opiates Screen Not Detected; U Oxycodone Screen Not Detected; U Phencyclidine Screen Not Detected; U Propoxyphene Screen Not Detected
[2021-10-15 03:48] LABS: BASOPHILS ABSOLUTE AUTO 0.02 K/mm3 (0.00-0.23); BASOPHILS PERCENT AUTO 0 % (0-2); EOSINOPHILS ABSOLUTE AUTO 0.05 K/mm3 (0.00-0.68); EOSINOPHILS PERCENT AUTO 1 % (0-6); Hematocrit 28.8 % (33.0-51.0); Hemoglobin 9.1 g/dL (11.5-16.0); IMMATURE GRAN ABSOLUTE AUTO 0.05 K/mm3 (0.00-0.10); IMMATURE GRAN PERCENT AUTO 1 % (0-1); LYMPHOCYTES ABSOLUTE AUTO 0.78 K/mm3 (0.84-5.20); LYMPHOCYTES PERCENT AUTO 8 % (21-46); MONOCYTES ABSOLUTE AUTO 0.59 K/mm3 (0.16-1.47); MONOCYTES PERCENT AUTO 6 % (4-13); Mean Corpuscular HGB 29.9 pg (26.0-34.0); Mean Corpuscular HGB Conc 31.6 g/dL (31.5-36.5); Mean Corpuscular Volume 95 fL (80-100); Mean Platelet Volume 9.7 fL (9.1-12.4); NEUTROPHILS ABSOLUTE AUTO 8.43 K/mm3 (1.96-9.15); NEUTROPHILS PERCENT AUTO 85 % (41-73); Platelet Count 247 K/mm3 (150-400); RDW Coefficient Variation 19.3 % (11.7-14.2); RDW Standard Deviation 66.4 fL (35.1-46.3); Red Blood Cell Count 3.04 M/mm3 (3.80-5.20); White Blood Cell Count 9.92 K/mm3 (4.00-11.30)
[2021-10-15 04:06] LABS: Alanine Aminotransfer (ALT/SGP 14 U/L (12-78); Albumin, Blood 2.8 g/dL (3.4-5.0); Albumin/Globulin Ratio 0.7 (0.8-1.8); Alk Phos 133 U/L (50-136); Anion Gap 8 mmol/L (6-16); Aspartate Aminotrans (AST/SGOT 23 U/L (12-37); Bilirubin, Total 0.5 mg/dL (0.1-1.0); Blood Urea Nitrogen 14 mg/dL (8-24); Bun/Creatinine Ratio 25.9 (12.0-20.0); CO2, Blood 28 mmol/L (21-32); Calcium, Blood 8.3 mg/dL (8.5-10.1); Chloride, Blood 101 mmol/L (98-108); Creatinine, Blood 0.54 mg/dL (0.40-1.00); Ethanol (Alcohol), Blood, Med <3 mg/dL; Globulin, Blood 4.1 g/dL (2.2-4.0); Glomerular Filtration Rate 111 (60-); Glucose, Blood 149 mg/dL (70-99); Potassium, Blood 4.7 mmol/L (3.5-5.5); Sodium, Blood 137 mmol/L (136-145); Total Protein, Blood 6.9 g/dL (6.4-8.2)
[2021-10-15 04:30] LABS: Base Excess Venous 3.4 mmol/L; Bicarbonate Venous 27.1 mmol/L (24.0-30.0); PCO2 Venous 42.3 mmHg (38-42); pH Blood Venous 7.43 (7.34-7.37)
[2021-10-15] MEDS ORDERED: CEPH500 PO (07:16)
== END 2021-10-15 07:21 | disposition home or self-care (01) ==
LOC: ER 01:27
PROVIDERS: Emergency Medicine
DX: R41.82 Altered mental status, unspecified (principal); N39.0 Urinary tract infection, site not specified; S16.1XXA Strain of muscle, fascia and tendon at neck level, initial encounter; S80.02XA Contusion of left knee, initial encounter; W19.XXXA Unspecified fall, initial encounter; I50.9 Heart failure, unspecified; E11.9 Type 2 diabetes mellitus without complications; F17.290 Nicotine dependence, other tobacco product, uncomplicated
CPT/HCPCS: 36415; 70450; 72125; 73562-LT; 80053; 81001; 82803; 83605; 85025; G0480; J0696

== ENCOUNTER → 2021-12-20 | Outpatient (CLI) | payer OTHER ==
[2021-12-20 19:24] LABS: CHOL/HDL RATIO 4.5; Cholesterol 203 mg/dL (50-200); HDL Cholesterol 45 mg/dL (>39); LDL/HDL RATIO 2.6; Low Density Lipoprotein Chol 116 mg/dL (0-110); Triglycerides 209 mg/dL (30-160); Very Low Density Lipoprot Chol 41 mg/dL (6-32)
[2021-12-21 07:11] LABS: HIV AB/P24 AG SCREEN Non Reactive (Non Reactive)
[2021-12-21 08:59] LABS: RPR Reactive (Nonreactive)
== END | disposition home or self-care (01) ==
LOC: LAB 10:40 → LAB SHORT 10:40
PROVIDERS: Family Medicine
DX: Z00.00 Encounter for general adult medical examination without abnormal findings (principal); Z11.59 Encounter for screening for other viral diseases; Z13.6 Encounter for screening for cardiovascular disorders
CPT/HCPCS: 80061; 86592; 86593; 86780; 86803; 87389

== ENCOUNTER 2022-01-01 19:17 | Emergency (ER) | payer OTHER ==
[~2022-01-01] VITALS: Ht 167.6 cm; Wt 117.9 kg
[2022-01-01 19:39] LABS: BASOPHILS ABSOLUTE AUTO 0.02 K/mm3 (0.00-0.23); BASOPHILS PERCENT AUTO 0 % (0-2); EOSINOPHILS ABSOLUTE AUTO 0.18 K/mm3 (0.00-0.68); EOSINOPHILS PERCENT AUTO 3 % (0-6); Hematocrit 28.8 % (33.0-51.0); Hemoglobin 9.5 g/dL (11.5-16.0); IMMATURE GRAN ABSOLUTE AUTO 0.09 K/mm3 (0.00-0.10); IMMATURE GRAN PERCENT AUTO 1 % (0-1); LYMPHOCYTES ABSOLUTE AUTO 1.53 K/mm3 (0.84-5.20); LYMPHOCYTES PERCENT AUTO 22 % (21-46); MONOCYTES ABSOLUTE AUTO 0.49 K/mm3 (0.16-1.47); MONOCYTES PERCENT AUTO 7 % (4-13); Mean Corpuscular HGB 31.8 pg (26.0-34.0); Mean Corpuscular Volume 96 fL (80-100); Mean Platelet Volume 9.6 fL (9.1-12.4); NEUTROPHILS PERCENT AUTO 67 % (41-73); NRBC ABSOLUTE 0.03 K/mm3 (0.00-0.02); NRBC Auto 0.4 /100 WBC (0.0-0.2); Platelet Count 261 K/mm3 (150-400); RDW Coefficient Variation 14.8 % (11.7-14.2); RDW Standard Deviation 50.8 fL (35.1-46.3); Red Blood Cell Count 2.99 M/mm3 (3.80-5.20); White Blood Cell Count 7.01 K/mm3 (4.00-11.30)
[2022-01-01 20:00] LABS: Bun/Creatinine Ratio 22.1 (12.0-20.0); Calcium, Blood 8.8 mg/dL (8.5-10.1); Creatinine, Blood 0.54 mg/dL (0.40-1.00); Potassium, Blood 3.7 mmol/L (3.5-5.5)
[2022-01-01 20:01] LABS: International Normalized Ratio 2.29; Prothrombin Time Results 22.8 Sec (9.7-11.5)
== END 2022-01-02 00:22 | disposition home or self-care (01) ==
LOC: ER 19:17
PROVIDERS: Student in an Organized Health Care Education/Training Program
DX: R07.89 Other chest pain (principal); R06.02 Shortness of breath; I50.30 Unspecified diastolic (congestive) heart failure; E11.9 Type 2 diabetes mellitus without complications; J44.9 Chronic obstructive pulmonary disease, unspecified; F17.290 Nicotine dependence, other tobacco product, uncomplicated; Z88.8 Allergy status to other drugs, medicaments and biological substances; Z91.030 Bee allergy status; Z79.899 Other long term (current) drug therapy; Z79.01 Long term (current) use of anticoagulants; Z79.84 Long term (current) use of oral hypoglycemic drugs; Z95.2 Presence of prosthetic heart valve
CPT/HCPCS: 71045; 80048; 84484; 85025; 85610; 93005; 93010; 96374; 99285-25; A9270; J1790

== ENCOUNTER → 2022-01-01 | Outpatient (CLI) | payer OTHER ==
[~2022-01-01] MED LIST changes: +ACYCLOVIR400 MG PO; -Amlodipine Bes2.5 MG PO; +BUPRENORPHIN-N1 EAC5 SL; +BUPRENORPHN-NA1 EAC2 SL; +FLUC150A PO; +FLUOXETINE HCL60 MG PO; +METOPROLOL TAR PO; +NEURONTIN300 MG PO; +Ventolin/Prove6.7 GM INH; +ZANAFLEX PO; +[UNRECOGNIZED DRUG - CODE] PO; +[UNRECOGNIZED DRUG - CODE] PO
== END ==
LOC: LAB SHORT 09:11
DX: N30.10 Interstitial cystitis (chronic) without hematuria (principal)

== ENCOUNTER → 2022-01-21 | Outpatient (CLI) | payer OTHER ==
[~2022-01-21] MED LIST changes: +ACETAMIN-CODE12.5 M3 PO; +OXYC1L PO
[2022-01-22 10:27] LABS: Candida species (DNA Probe) Positive (NEGATIVE); G. vaginalis (DNA Probe) Negative (NEGATIVE); T. vaginalis (DNA Probe) Negative (NEGATIVE)
== END | disposition home or self-care (01) ==
LOC: LAB 18:47 → LAB SHORT 18:47
PROVIDERS: Family Medicine
DX: N89.8 Other specified noninflammatory disorders of vagina (principal)
CPT/HCPCS: 87480; 87510; 87660

== ENCOUNTER 2022-02-01 08:27 | Emergency (ER) | payer OTHER ==
[~2022-02-01] VITALS: Ht 167.6 cm; Wt 120.2 kg
[~2022-02-01 08:27] MED LIST changes: -ACETAMIN-CODE12.5 M3 PO; -OXYC1L PO
[2022-02-01 09:49] LABS: BASOPHILS ABSOLUTE AUTO 0.02 K/mm3 (0.00-0.23); BASOPHILS PERCENT AUTO 0 % (0-2); EOSINOPHILS ABSOLUTE AUTO 0.12 K/mm3 (0.00-0.68); EOSINOPHILS PERCENT AUTO 2 % (0-6); Hematocrit 35.8 % (33.0-51.0); Hemoglobin 11.8 g/dL (11.5-16.0); IMMATURE GRAN ABSOLUTE AUTO 0.01 K/mm3 (0.00-0.10); IMMATURE GRAN PERCENT AUTO 0 % (0-1); LYMPHOCYTES ABSOLUTE AUTO 1.22 K/mm3 (0.84-5.20); LYMPHOCYTES PERCENT AUTO 23 % (21-46); MONOCYTES ABSOLUTE AUTO 0.48 K/mm3 (0.16-1.47); MONOCYTES PERCENT AUTO 9 % (4-13); Mean Corpuscular HGB 31.6 pg (26.0-34.0); Mean Corpuscular Volume 96 fL (80-100); Mean Platelet Volume 9.8 fL (9.1-12.4); NEUTROPHILS ABSOLUTE AUTO 3.55 K/mm3 (1.96-9.15); NEUTROPHILS PERCENT AUTO 66 % (41-73); Platelet Count 205 K/mm3 (150-400); RDW Coefficient Variation 13.6 % (11.7-14.2); RDW Standard Deviation 48.5 fL (35.1-46.3); Red Blood Cell Count 3.73 M/mm3 (3.80-5.20)
[2022-02-01 10:08] LABS: Albumin, Blood 3.3 g/dL (3.4-5.0); Albumin/Globulin Ratio 0.8 (0.8-1.8); Bilirubin, Total 0.2 mg/dL (0.1-1.0); Bun/Creatinine Ratio 29.1 (12.0-20.0); Calcium, Blood 8.3 mg/dL (8.5-10.1); Creatinine, Blood 0.41 mg/dL (0.40-1.00); Globulin, Blood 4.3 g/dL (2.2-4.0); Potassium, Blood 4.2 mmol/L (3.5-5.5); Total Protein, Blood 7.6 g/dL (6.4-8.2)
== END 2022-02-01 10:53 | disposition home or self-care (01) ==
LOC: ER 08:27
PROVIDERS: Emergency Medicine
DX: K20.90 Esophagitis, unspecified without bleeding (principal); Z88.5 Allergy status to narcotic agent; Z88.8 Allergy status to other drugs, medicaments and biological substances; Z91.030 Bee allergy status; Z79.899 Other long term (current) drug therapy; Z79.84 Long term (current) use of oral hypoglycemic drugs; Z79.01 Long term (current) use of anticoagulants; F17.290 Nicotine dependence, other tobacco product, uncomplicated; I50.9 Heart failure, unspecified; E11.9 Type 2 diabetes mellitus without complications; J44.9 Chronic obstructive pulmonary disease, unspecified
CPT/HCPCS: 71045; 80053; 83690; 83880; 84484; 85025; 93005; 93010; 96372; 99285-25; J1170

== ENCOUNTER 2022-02-05 07:56 | Emergency (ER) | payer OTHER ==
[~2022-02-05] VITALS: Ht 167.6 cm; Wt 120.2 kg
[2022-02-05] MEDS ORDERED: ACETAMIN-CODE12.5 M3 PO (11:35)
== END 2022-02-05 11:41 | disposition home or self-care (01) ==
LOC: ER 07:56
DX: K22.2 Esophageal obstruction (principal); K20.90 Esophagitis, unspecified without bleeding; I50.9 Heart failure, unspecified; E11.9 Type 2 diabetes mellitus without complications; J44.9 Chronic obstructive pulmonary disease, unspecified; F17.290 Nicotine dependence, other tobacco product, uncomplicated; Z79.899 Other long term (current) drug therapy
CPT/HCPCS: 74220; A9270

== ENCOUNTER 2022-02-07 11:11 | Emergency (ER) | payer OTHER ==
[~2022-02-07] VITALS: Ht 167.6 cm; Wt 117.9 kg
[~2022-02-07 11:11] MED LIST changes: +ACETAMIN-CODE12.5 M3 PO
[2022-02-07] MEDS ORDERED: OXYC1L PO (12:54)
== END 2022-02-07 13:11 | disposition home or self-care (01) ==
LOC: ER 11:11
DX: R13.10 Dysphagia, unspecified (principal); I50.9 Heart failure, unspecified; E11.9 Type 2 diabetes mellitus without complications; Z91.030 Bee allergy status; Z79.899 Other long term (current) drug therapy
CPT/HCPCS: 99283

== ENCOUNTER → 2022-03-01 | Outpatient (CLI) | payer OTHER ==
[~2022-03-01] MED LIST changes: +OXYC1L PO
== END | disposition home or self-care (01) ==
LOC: LAB SHORT 11:37 → LAB 11:37
DX: N39.0 Urinary tract infection, site not specified (principal)
CPT/HCPCS: 87077; 87086; 87186

== ENCOUNTER 2022-03-08 11:20 | Day surgery (SDC) | payer OTHER ==
[~2022-03-08] VITALS: Ht 167.6 cm; Wt 118.7 kg
[2022-03-08] MEDS ORDERED: ENOX100I IM (12:23)
--- NOTE | 2022-03-08 14:51 | NUR ---
03/08/22 1451 Thierno Harvey History, Chart, Medications and Allergies reviewed before start of procedure. MONITOR INTACT WITH CONTINUOUS PULSE OXIMETRY AND INTERMITTENT BP. 3-LEAD EKG REVIEWED WITH PHYSICIAN PRIOR TO START OF PROCEDURE. O2 VIA POM INTACT THROUGHOUT SEDATION/PROCEDURE. Bite Block Placed. 2% LIDOCAINE SPRAYED TO BACK OF THROAT BEFORE PROCEDURE PER ORDERS.
--- NOTE | 2022-03-08 15:45 | NUR ---
Patient up to Ambulate independently. Gait steady. Discharge instructions reviewed with patient. Patient verbalizes understanding. Copy given to patient to take home INCLUDING FALL RISK BROCHURE. Discharged via wheelchair to private car for ride home WITH RIDE HOME.IV D/C AT DISCHARGE WNL.
== END 2022-03-08 15:40 | disposition home or self-care (01) ==
LOC: ORSCMMR 11:20 → ORSCSDS 11:45 → ORSCMMR 12:00 → ORSCSDS 12:15 → ORSCMMR 15:40
PROVIDERS: Internal Medicine Gastroenterology
PROC: 0DB68ZX Excision of Stomach, Via Natural or Artificial Opening Endoscopic, Diagnostic (ICD-10-PCS; principal; 2022-03-08 13:00)
DX: R13.10 Dysphagia, unspecified (principal); Z87.11 Personal history of peptic ulcer disease; K22.2 Esophageal obstruction; I10 Essential (primary) hypertension; I50.9 Heart failure, unspecified; G47.33 Obstructive sleep apnea (adult) (pediatric); J44.9 Chronic obstructive pulmonary disease, unspecified; K21.9 Gastro-esophageal reflux disease without esophagitis; F41.8 Other specified anxiety disorders; F31.9 Bipolar disorder, unspecified; E11.9 Type 2 diabetes mellitus without complications; Z87.891 Personal history of nicotine dependence; E66.01 Morbid (severe) obesity due to excess calories; Z68.41 Body mass index [BMI] 40.0-44.9, adult; Z79.84 Long term (current) use of oral hypoglycemic drugs; Z79.01 Long term (current) use of anticoagulants; Z79.899 Other long term (current) drug therapy
CPT/HCPCS: 82947; 88305; 88342; C1726; J2704; J7120

== ENCOUNTER 2022-04-28 09:10 | Inpatient (IN) | payer OTHER ==
[~2022-04-28] VITALS: Ht 167.6 cm; Wt 119.0 kg
[~2022-04-28 09:10] MED LIST changes: +ENOX100I IM; -[UNRECOGNIZED DRUG - CODE] PO
[2022-04-28 11:13] LABS: BASOPHILS ABSOLUTE AUTO 0.02 K/mm3 (0.00-0.23); BASOPHILS PERCENT AUTO 0 % (0-2); EOSINOPHILS ABSOLUTE AUTO 0.03 K/mm3 (0.00-0.68); EOSINOPHILS PERCENT AUTO 1 % (0-6); Hematocrit 20.2 % (33.0-51.0); Hemoglobin 6.7 g/dL (11.5-16.0); IMMATURE GRAN ABSOLUTE AUTO 0.05 K/mm3 (0.00-0.10); IMMATURE GRAN PERCENT AUTO 1 % (0-1); LYMPHOCYTES ABSOLUTE AUTO 1.01 K/mm3 (0.84-5.20); LYMPHOCYTES PERCENT AUTO 15 % (21-46); MONOCYTES ABSOLUTE AUTO 0.34 K/mm3 (0.16-1.47); MONOCYTES PERCENT AUTO 5 % (4-13); Mean Corpuscular HGB 30.7 pg (26.0-34.0); Mean Corpuscular HGB Conc 33.2 g/dL (31.5-36.5); Mean Corpuscular Volume 93 fL (80-100); Mean Platelet Volume 10.6 fL (9.1-12.4); NEUTROPHILS ABSOLUTE AUTO 5.13 K/mm3 (1.96-9.15); NEUTROPHILS PERCENT AUTO 78 % (41-73); Platelet Count 169 K/mm3 (150-400); RDW Coefficient Variation 14.6 % (11.7-14.2); RDW Standard Deviation 47.6 fL (35.1-46.3); Red Blood Cell Count 2.18 M/mm3 (3.80-5.20); White Blood Cell Count 6.58 K/mm3 (4.00-11.30)
[2022-04-28 11:30] LABS: Albumin, Blood 2.7 g/dL (3.4-5.0); Albumin/Globulin Ratio 0.8 (0.8-1.8); Bilirubin, Total 0.2 mg/dL (0.1-1.0); Bun/Creatinine Ratio 48.2 (12.0-20.0); Creatinine, Blood 0.46 mg/dL (0.40-1.00); Globulin, Blood 3.4 g/dL (2.2-4.0); Potassium, Blood 4.2 mmol/L (3.5-5.5); Total Protein, Blood 6.1 g/dL (6.4-8.2)
[2022-04-28 14:08] LABS: Percent Saturation 46.2 % (15.0-50.0)
[2022-04-28 16:30] LABS: Prothrombin Time Results 40.7 Sec (9.7-11.5)
[2022-04-28 16:37] LABS: International Normalized Ratio 4.26
--- NOTE | 2022-04-28 17:29 | NUR ---
CALLED DR PENNINGTON- PT STATED SHE TAKES TEGRETOL 400MG BID AND GABAPENTIN 600MG TID NEEDED FOR HER NERVE PAIN. RECIEVD ORDER FOR THESE MEDICATIONS AT THE PT HOME DOSE. PT STATES SHE TOOK HER MORNING MEDS BEFORE SSHE CAME TO THE ER.
--- NOTE | 2022-04-28 19:43 | NUR ---
SHIFT SUMMARY- PT ADMITTED THROUGH THE ED. SEE PREVIOUS NOTES FOR DETAILS. PT IN BED, BLOOD TRANSFUSION RUNNING AT 125ML/HR. VITALS CHECKED AT SHIFT CHANGE WITH THE NIGHT RN. LISINOPRIL DOSE WAS HELD FOR CLINICAL JUDGEMENT SHE HAS OTHER BP RATE AND CARDIAC FUNCTION MEDS LATER AND HER PRESSURES ARE LOW. PT SITTING UP AT THE EOB AT SHIFT CHANGE NO S&S OF DISTRESS NOTED AT THE TIME OF BEDSIDE REPORT. NIGHT RN ASSUMED CARE. PT DID REQUEST GABAPENTIN AT BEDSIDE REPORT NIGHT RN AWARE AND WILL ADMINISTER.
--- NOTE | 2022-04-28 20:00 | NUR ---
PATIENT WAS REQUESTING FOR HER TO BE GIVEN HER ZANAFLEX AND STATED "MY LOWER BACK AND ARMS ARE JUST KILLING ME". THIS NURSE THEN NOTICED THAT THE ZANAFLEX WAS IN HER HOME MEDS LIST BUT NOT IN HER EMAR. THIS NURSE THEN CALLED DR. AUSTIN FOR THE ZANAFLEX AND HE AGREED AND SAID TO DO A ONE TIME ORDER. ONCE THE ORDER WAS PLACED THIS NURSE RECIEVED A CALL FROM PHARMACY SAYING THAT THIS PATIENT SHOULD NOT RECIEVE ZANAFLEX WITH HER ESTROGEN TABLET SINCE THE COMBINATION OF BOTH CAN CAUSE HYPOTENSION. PHARMACY SUGGESTED TO SWITCH THE ZANAFLEX TO FLEXIREL SINCE IT DOES NOT CAUSE HYPOTENSION WITH THE ESTROGEN TABLET. THIS NURSE THEN CALLED DR. AUSTIN BACK AND REPORTED TO HIM WHAT PHARMACY HAD SAID AND SUGGESTED TO DR. AUSTIN TO SWITCH THE ZANAFLEX TO FLEXIREL. DR. AUSTIN SAID TO CONTINUE TO GIVE THE PATIENT ZANAFLEX THIS ONE TIME AND TO CONTINUE TO MONITOR HER BP. THEN HE STATED "DAYSHIFT CAN SWITCH HER ZANAFLEX TO FLEXIREL". AFTER EDUCATING PATIENT ON WHAT PHARMACY HAD SAID SHE STATED "OH MAYBE THAT IS WHY I'VE BEEN FALLING AT HOME...LETS HOLD OFF ON THAT MED FOR NOW". PATIENT IS LAYING IN BED FINISHING UP HER 1 UNIT OF BLOOD THROUGH HER IV. CALL LIGHT WITHIN REACH.
--- NOTE | 2022-04-28 22:37 | NUR ---
PATIENT REPORTED "MY BACK AND ARMS ARE HURTING SO BAD THAT I CAN'T SLEEP AT ALL! I WOULD LIKE MY ZANAFLEX NOW". PATIENTS BP WAS CHECKED AND IS NOW 145/77 AND HER 1 UNIT OF BLOOD HAS BEEN COMPLETED. THIS NURSE EDUCATED THE PATIENT THAT SINCE SHE IS TO RECIEVE HER ZANAFLEX SHE SHOULD NOT TAKE HER ESTROGEN TABLET IN THE MORNING DUE TO THIS COMBINATION CAUSING HYPOTENSION PER PHARMACY. PATIENT VERBALIZED UNDERSTANDING AND REPORTED "I WILL NOT BE TAKING THE ESTROGEN IN THE MORNING". PATIENT TOOK HER ZANAFLEX WITH A SIP OF WATER. SHE IS NOW LAYING BACK DOWN IN BED WITH CALL LIGHT IN REACH. BED ALARM IS ON DUE TO THE PATIENT HAS TAKEN HER SEROQUEL, METOPROLOL, NEURONTIN, AND NOW THE ZANAFLEX.
--- NOTE | 2022-04-29 03:08 | NUR ---
SHIFT SUMMARY: NO SIGNIFICANT CHANGES DURING SHIFT. PATIENT COMPLETED HER 1 UNIT OF BLOOD AND TOLERATED IT WELL. VS ARE WNL AND SHE IS ON RA. PATIENTS CHRONIC BACK/ARM SPASMS ARE BEST CONTROLLED WITH PO ZANAFLEX. HOWEVER, IT WAS DISCOVERED THROUGH PHARMACY THAT THE COMBINATION OF ZANAFLEX AND ESTROGEN IT CAN CAUSE HYPOTENSION (SEE PRIOR NOTES FOR MORE DETAILS). PATIENT IS A SBA TO THE BATHROOM. SHE IS TOLERATING PO INTAKE AND IS VOIDING. SINCE PATIENT HAS BEEN GIVEN ZANAFLEX PATIENT HAS BEEN ASLEEP, BUT IS EASILY AWOKEN WITH TOUCH/SAYING HER NAME. SHE IS LAYING IN BED WITH CALL LIGHT IN REACH.
--- NOTE | 2022-04-29 05:00 | NUR ---
THIS NURSE KNOCKED ON THE PATIENTS DOOR TO CHECK IN ON THE PATIENT. THE PATIENT WAS WIDE AWAKE WITH THE LIGHTS ON AND REPORTED "I'VE BEEN AWAKE SINCE 0400 AND HAVE NOT BEEN ABLE TO FALL BACK ASLEEP. MY LOWER BELLY HAS BEEN INCREASINGLY UNCOMFORTABLE AND I WOULD LIKE TO TAKE SOMETHING TO HELP WITH THAT". THIS NURSE EXAMINED THE PATIENTS ABD WITH SLIGHTLY INCREASE OF TIGHTNESS OF THE ABD THAN FROM THE BEGINNING OF SHIFT. THIS NURSE GAVE THE PATIENT PO GABAPENTIN AND TYLENOL. THIS NURSE WILL NOTIFY THE ONCOMING DAYSHIFT NURSE OF ABD PAIN WELL INCREASE IN ABD TIGHTNESS. WILL CONTINUE TO MONITOR PATIENTS ABD PAIN WELL ABD TIGHTNESS. PATIENT IS LAYING IN BED WITH CALL LIGHT IN REACH.
[2022-04-29 06:02] LABS: Hematocrit 20.1 % (33.0-51.0); Hemoglobin 6.7 g/dL (11.5-16.0); Mean Corpuscular HGB 31.2 pg (26.0-34.0); Mean Corpuscular HGB Conc 33.3 g/dL (31.5-36.5); Mean Corpuscular Volume 94 fL (80-100); Mean Platelet Volume 10.5 fL (9.1-12.4); NRBC ABSOLUTE 0.03 K/mm3 (0.00-0.02); NRBC Auto 0.5 /100 WBC (0.0-0.2); Platelet Count 168 K/mm3 (150-400); RDW Coefficient Variation 14.8 % (11.7-14.2); RDW Standard Deviation 47.9 fL (35.1-46.3); Red Blood Cell Count 2.15 M/mm3 (3.80-5.20); White Blood Cell Count 6.26 K/mm3 (4.00-11.30)
[2022-04-29 06:20] LABS: International Normalized Ratio 2.99; Prothrombin Time Results 29.2 Sec (9.7-11.5)
[2022-04-29 07:00] LABS: Albumin, Blood 2.6 g/dL (3.4-5.0); Albumin/Globulin Ratio 0.8 (0.8-1.8); Bilirubin, Total 0.3 mg/dL (0.1-1.0); Bun/Creatinine Ratio 31.7 (12.0-20.0); Calcium, Blood 7.8 mg/dL (8.5-10.1); Creatinine, Blood 0.47 mg/dL (0.40-1.00); Globulin, Blood 3.3 g/dL (2.2-4.0); Total Protein, Blood 5.9 g/dL (6.4-8.2)
[2022-04-29 10:16] LABS: Hematocrit 20.5 % (33.0-51.0); Hemoglobin 6.8 g/dL (11.5-16.0)
[2022-04-29 16:12] LABS: Hemoglobin 7.2 g/dL (11.5-16.0)
--- NOTE | 2022-04-29 20:02 | NUR ---
SHIFT SUMMARY- PT ALERT AND ORIENTED WITH A Hx BIPOLAR. PT HAS HAD C/O PAIN ON AND OFF. SHE WANTED TO LEAVE THIS MORNING AND DR ANN SPOKE TO HER OF THE IMPORTANCE OF RECIEVING A BLOOD TRANSFUSION TODAY. IV ATIVAN WAS ORDERED Q2 NEEDED FOR ANXIETY 1-2 MG. FIRST DOSE WAS GIVEN, THEN BLOOD WAS STARTED AND COULD NOT BE STOPPED FOR MED ADMINISTRATION, UNABLE TO PLACE A SECOND IV. CALLED DR ANN AND RECIEVED A OT DOSE OF 2MG PO ATIVAN. PT RECIEVED THAT. AFTER THE TRANSFUSION THE PT REQUESTED THAT STAFF REMOVE HER IV BECAUSE SHE WAS GOING HOME NO MATTER WHAT. HER PAIN WAS TOO MUCH AND SHE WANTED REAL FOOD AND SHE JJUST WANTED TO GO HOME. SPOKE TO DR NORWOOD HE ORDERED PO NORCO 10MG Q6, PT HAD DECLINED TO TAKE ANY MORE ATIVAN STATING THAT IT WOULD NOT WORK. AFTER THE DR SPOKE TO THIS RN SHE WAS WILLING TO TAKE IT GAVE 2MG IV PER MD ORDER. PT HAS BEEN SLEEPING SINCE THE MED ADMINISTRATION, SBP 105 HELD LISINOPRIL PT WOKE TO EAT DINNER AND FELL ASLEEP TWICE WHILE EATING. BED ALARM IS SET FOR PT SAFETY. NIGHT RN AWARE BEDSIDE REPORT COMPLETED.
[2022-04-29 22:17] LABS: Hematocrit 21.8 % (33.0-51.0); Hemoglobin 7.2 g/dL (11.5-16.0)
--- NOTE | 2022-04-30 04:58 | NUR ---
SHIFT SUMMARY 51 YR F ADMITTED ON 04/28/21 FOR SYNCOPE EPISODES. FULL CODE. PT APPEARS TO BE CONFUSED BUT DOES KNOW SHE IS IN THE HOSPITAL AND WHY. SHE INSISTS SHE IS GOING HOME FIRST THING IN THE MORNING. SHE IS IMPULSIVE IN GETTING OUT OF BED AND DESPITE NUMEROUS REQUESTS SHE WILL NOT USE HER CALL LIGHT. SHE IS VERY UNSTEADY ON HER FEET AND APPEARS TO BE VERY WEAK. SHE WAS GIVEN ATIVAN AT APPROX 2300 AND HAS NOT HAD ANY SINCE BUT SHE STILL APPEARS TO BE IN A "FOG". MORNING LABS HAVE BEEN DRAWN BUT RESULTS ARE NOT IN YET.
[2022-04-30 05:12] LABS: Hematocrit 19.9 % (33.0-51.0); Hemoglobin 6.6 g/dL (11.5-16.0)
[2022-04-30 05:30] LABS: International Normalized Ratio 1.4; Prothrombin Time Results 14.4 Sec (9.7-11.5)
[2022-04-30 08:33] LABS: Bun/Creatinine Ratio 31.2 (12.0-20.0); Calcium, Blood 8.4 mg/dL (8.5-10.1); Creatinine, Blood 0.45 mg/dL (0.40-1.00); Potassium, Blood 3.7 mmol/L (3.5-5.5)
--- NOTE | 2022-04-30 08:35 | NUR ---
PT LEFT AMA, DR NOTIFIED. REMOVED IV. EDUCATED PT ON RISKS AND REWARDS OF STAYING. DISCUSSED STAYING AT LEAST UNTIL DR VISIT, PT ELECTED TO LEAVE ANYWAY. PT LEFT WHEN NOTIFYING DR AND W/O SIGNING AMA FORM.
== END 2022-04-30 08:34 | disposition left against medical advice (07) | DRG 811 ==
LOC: ER 09:10 → MEDS 13:28
PROVIDERS: Emergency Medicine; Internal Medicine; ADMIT Internal Medicine
PROC: 30233N1 Transfusion of Nonautologous Red Blood Cells into Peripheral Vein, Percutaneous Approach (ICD-10-PCS; principal; 2022-04-28)
DX: D50.0 Iron deficiency anemia secondary to blood loss (chronic) (principal); K22.11 Ulcer of esophagus with bleeding; I50.32 Chronic diastolic (congestive) heart failure; Z68.41 Body mass index [BMI] 40.0-44.9, adult; R79.1 Abnormal coagulation profile; F41.9 Anxiety disorder, unspecified; F31.9 Bipolar disorder, unspecified; J44.9 Chronic obstructive pulmonary disease, unspecified; E11.42 Type 2 diabetes mellitus with diabetic polyneuropathy; G89.29 Other chronic pain; F17.210 Nicotine dependence, cigarettes, uncomplicated; N30.10 Interstitial cystitis (chronic) without hematuria; E66.01 Morbid (severe) obesity due to excess calories; I95.9 Hypotension, unspecified; Z91.038 Other insect allergy status; Z79.84 Long term (current) use of oral hypoglycemic drugs; Z79.899 Other long term (current) drug therapy; Z79.51 Long term (current) use of inhaled steroids; Z79.811 Long term (current) use of aromatase inhibitors; Z79.2 Long term (current) use of antibiotics; Z79.01 Long term (current) use of anticoagulants; Z87.442 Personal history of urinary calculi; Z90.710 Acquired absence of both cervix and uterus; Z90.721 Acquired absence of ovaries, unilateral; Z90.49 Acquired absence of other specified parts of digestive tract; Z98.890 Other specified postprocedural states; Z95.2 Presence of prosthetic heart valve; Z86.19 Personal history of other infectious and parasitic diseases
CPT/HCPCS: 36415; 36416; 36430; 71045; 80048; 80053; 82728; 82947; 83540; 83550; 83880; 84484; 85014; 85018; 85025; 85027; 85610; 86850; 86900; 86901; 86923; 93005; 93010; 94760; 96374; 99285-25; A9270; C9113; J2060; J2405; J7030; J7050; P9016

== ENCOUNTER 2022-04-30 14:28 | Inpatient (IN) | payer OTHER ==
[~2022-04-30] VITALS: Ht 167.6 cm; Wt 122.5 kg
[2022-04-30 15:18] LABS: BASOPHILS ABSOLUTE AUTO 0.03 K/mm3 (0.00-0.23); BASOPHILS PERCENT AUTO 0 % (0-2); EOSINOPHILS ABSOLUTE AUTO 0.06 K/mm3 (0.00-0.68); EOSINOPHILS PERCENT AUTO 1 % (0-6); Hematocrit 20.9 % (33.0-51.0); IMMATURE GRAN ABSOLUTE AUTO 0.35 K/mm3 (0.00-0.10); IMMATURE GRAN PERCENT AUTO 4 % (0-1); LYMPHOCYTES ABSOLUTE AUTO 1.24 K/mm3 (0.84-5.20); LYMPHOCYTES PERCENT AUTO 16 % (21-46); MONOCYTES ABSOLUTE AUTO 0.57 K/mm3 (0.16-1.47); MONOCYTES PERCENT AUTO 7 % (4-13); Mean Corpuscular HGB 30.8 pg (26.0-34.0); Mean Corpuscular HGB Conc 33.5 g/dL (31.5-36.5); Mean Corpuscular Volume 92 fL (80-100); Mean Platelet Volume 10.6 fL (9.1-12.4); NEUTROPHILS ABSOLUTE AUTO 5.62 K/mm3 (1.96-9.15); NEUTROPHILS PERCENT AUTO 71 % (41-73); NRBC ABSOLUTE 0.14 K/mm3 (0.00-0.02); NRBC Auto 1.8 /100 WBC (0.0-0.2); Platelet Count 209 K/mm3 (150-400); RDW Standard Deviation 51.4 fL (35.1-46.3); Red Blood Cell Count 2.27 M/mm3 (3.80-5.20); White Blood Cell Count 7.87 K/mm3 (4.00-11.30)
[2022-04-30 15:36] LABS: Albumin, Blood 2.9 g/dL (3.4-5.0); Albumin/Globulin Ratio 0.8 (0.8-1.8); Bilirubin, Total 0.2 mg/dL (0.1-1.0); Bun/Creatinine Ratio 27.2 (12.0-20.0); Calcium, Blood 8.1 mg/dL (8.5-10.1); Creatinine, Blood 0.44 mg/dL (0.40-1.00); Globulin, Blood 3.5 g/dL (2.2-4.0); Potassium, Blood 4.3 mmol/L (3.5-5.5); Total Protein, Blood 6.4 g/dL (6.4-8.2)
[2022-05-01 00:16] LABS: Hematocrit 22.9 % (33.0-51.0); Hemoglobin 7.6 g/dL (11.5-16.0)
[2022-05-01 03:51] LABS: Hematocrit 21.2 % (33.0-51.0); Mean Corpuscular HGB 30.2 pg (26.0-34.0); Mean Corpuscular Volume 91 fL (80-100); NRBC ABSOLUTE 0.07 K/mm3 (0.00-0.02); Platelet Count 179 K/mm3 (150-400); RDW Coefficient Variation 16.6 % (11.7-14.2); Red Blood Cell Count 2.32 M/mm3 (3.80-5.20); White Blood Cell Count 7.31 K/mm3 (4.00-11.30)
[2022-05-01 04:41] LABS: Bun/Creatinine Ratio 20.2 (12.0-20.0); Creatinine, Blood 0.49 mg/dL (0.40-1.00); Potassium, Blood 3.7 mmol/L (3.5-5.5)
--- NOTE | 2022-05-01 06:11 | NUR ---
END OF SHIFT: PATIENT IS STILL ANXIOUS ALERT AND ORIENTED, PATIENT DID NOT RECIEVE ANOTHER UNIT OF BLOOD FROM THIS RN, SHE ONLY RECIEVED 1 UNIT FROM ED. NO FLUIDS, INCREASE BLOOD PRESSURE FOR THIS RN. PATIENT HAS BEEN PLEASANT AND COOPERATIVE WITH CARE. POWERGLIDE PLACED. AND SEROQUEL ORDERED FOR HOME NIGHT SLEEPING MED. PATIENT IN NO CURRENT SIGNS OF BLEEDING, OR ACUTE DISTRESS FROM THIS RN AT THIS TIME.
[2022-05-01 08:04] LABS: International Normalized Ratio 1.93; Prothrombin Time Results 19.4 Sec (9.7-11.5)
[2022-05-01 09:53] LABS: Hematocrit 22.8 % (33.0-51.0); Hemoglobin 7.3 g/dL (11.5-16.0)
[2022-05-01 15:50] LABS: Hematocrit 20.4 % (33.0-51.0); Hemoglobin 6.8 g/dL (11.5-16.0)
[2022-05-01 16:44] LABS: Source, Urine Clean Catch
[2022-05-01 16:48] LABS: Appearance, Urine Clear (Clear); Bilirubin, Urine Neg (Neg); Blood, Urine Neg (Neg); Color, Urine Amber (P-Yellow); Glucose Qualitative, Urine Neg (Neg); Ketones, Urine Neg (Neg); Leukocyte Esterase, Urine 1+ (Neg); Nitrite, Urine Neg (Neg); Protein, Urine 1+ (Neg); Specific Gravity, Urine 1.025 (1.003-1.022); Urobilinogen, Urine 2+ (Normal)
[2022-05-01 16:57] LABS: Bacteria Mod /hpf; Red Blood Cells, Urine 0-2 /hpf (0-2); Squamous Epithelial Cells Few /hpf (Few); White Blood Cells, Urine 25-50 /hpf (0-5)
--- NOTE | 2022-05-01 17:28 | NUR ---
SHIFT SUMMARY PT HAS BEEN UP IN ROOM INDEPENDENTLY. PT GOT UP TO THE BEDSIDE COMMODE UNASSISTED IN THE MORNING SETTING OFF THE BED ALARM. PT EXPRESSED FRUSTRATION AND EMBARASSMENT OVER THIS AND AGREED WITH STAFF TO CALL FOR ASSISTANCE WHEN THEY NEEDED TO USE THE RESTROOM. PT WAS STABLE AND STEADY ON THEIR FEET AND WAS EDUCATED ON THE RISKS OF DIZZINESS, SYNCOPE, AND FALLS DUE TO ANEMIA. PT HAS DEMONSTRATED A MODERATE LEVEL OF ANXIETY THAT WAS MILDLY IMPROVED WITH MEDICATION AND THERAPEUTIC COMMUNICATION. PT C/O DISCOMFORT R/T URINATION AND REQUESTED FOR A URINALYSIS WITH CULTURE TO BE PERFORMED. ALL VITAL SIGNS HAVE REMAINED STABLE.
--- NOTE | 2022-05-01 20:51 | NUR ---
UPDATE: DR. CHISHOLM AT BEDSIDE. PLAN FOR EGD TOMORROW AFTERNOON. NPO AT MIDNIGHT.
[2022-05-01 23:46] LABS: Hematocrit 22.1 % (33.0-51.0); Hemoglobin 7.5 g/dL (11.5-16.0)
[2022-05-02 04:33] LABS: Hematocrit 23.1 % (33.0-51.0); Hemoglobin 7.6 g/dL (11.5-16.0); Mean Corpuscular HGB 29.7 pg (26.0-34.0); Mean Corpuscular HGB Conc 32.9 g/dL (31.5-36.5); Mean Corpuscular Volume 90 fL (80-100); Mean Platelet Volume 10.5 fL (9.1-12.4); NRBC ABSOLUTE 0.06 K/mm3 (0.00-0.02); NRBC Auto 1.2 /100 WBC (0.0-0.2); Platelet Count 163 K/mm3 (150-400); RDW Coefficient Variation 16.3 % (11.7-14.2); RDW Standard Deviation 50.6 fL (35.1-46.3); Red Blood Cell Count 2.56 M/mm3 (3.80-5.20); White Blood Cell Count 5.02 K/mm3 (4.00-11.30)
--- NOTE | 2022-05-02 04:42 | NUR ---
SHIFT SUMMARY: PT ALERT AND ORIENTED X4, ABLE TO FOLLOW COMMANDS AND MAKE NEEDS KNOWN. IRRITABLE AT TIMES. BP STABLE, HR SR 60'S, AFEBRILE, SATURATIONS >95% ON ROOM AIR. RESPIRATIONS EVEN AND UNLABORED. DR. CHISHOLM AT BEDSIDE EARLIER THIS EVENING, PLAN FOR EGD 05/02, WATER ONLY AT MIDNIGHT, NPO STARTING 1100. PT UPSET WITH WATER ONLY ORDER, EDUCATION PROVIDED. PT RECEIVED 1 UNIT OF PRBC, HBG NOW 7.5. NO COMPLAINTS OF N/V THROUGHOUT THE NIGHT. PT IND TO AND FROM BATHROOM. POWERGLIDE IN HEIDY, FLUSHES, DOES NOT DRAW. NO BM THIS SHIFT. BED IN LOW, CALL LIGHT IN REACH, WILL REPORT TO ONCOMING RN.
[2022-05-02 04:45] LABS: International Normalized Ratio 1.95; Prothrombin Time Results 19.6 Sec (9.7-11.5)
[2022-05-02 04:51] LABS: Bun/Creatinine Ratio 14.9 (12.0-20.0); Calcium, Blood 7.9 mg/dL (8.5-10.1); Creatinine, Blood 0.54 mg/dL (0.40-1.00); Potassium, Blood 3.4 mmol/L (3.5-5.5)
--- NOTE | 2022-05-02 11:06 | NUR ---
05/02/22 1106 Jamal Taylor History, Chart, Medications and Allergies reviewed before start of procedure.MONITOR INTACT WITH CONTINUOUS PULSE OXIMETRY AND INTERMITTENT BP.3-LEAD EKG REVIEWED WITH PHYSICIAN PRIOR TO START OF PROCEDURE.O2 VIA N/C INTACT THROUGHOUT SEDATION/PROCEDURE. ANESTHESIA PER DR. BAILEY
== END 2022-05-02 15:03 | disposition home or self-care (01) | DRG 812 ==
LOC: ER 14:28 → PCU 18:44 → ERHOLD 18:44 → PCU 05-01 00:04
PROVIDERS: Emergency Medicine; Family Medicine; Internal Medicine; Internal Medicine Gastroenterology; Physician Assistant; ADMIT Internal Medicine
PROC: 30233N1 Transfusion of Nonautologous Red Blood Cells into Peripheral Vein, Percutaneous Approach (ICD-10-PCS; 2022-04-30)
PROC: 0DJ08ZZ Inspection of Upper Intestinal Tract, Via Natural or Artificial Opening Endoscopic (ICD-10-PCS; principal; 2022-05-02 10:30)
DX: D62 Acute posthemorrhagic anemia (principal); I50.32 Chronic diastolic (congestive) heart failure; Z68.41 Body mass index [BMI] 40.0-44.9, adult; J96.11 Chronic respiratory failure with hypoxia; K92.2 Gastrointestinal hemorrhage, unspecified; J44.9 Chronic obstructive pulmonary disease, unspecified; E11.9 Type 2 diabetes mellitus without complications; B96.1 Klebsiella pneumoniae [K. pneumoniae] as the cause of diseases classified elsewhere; F41.9 Anxiety disorder, unspecified; I11.0 Hypertensive heart disease with heart failure; K42.9 Umbilical hernia without obstruction or gangrene; N30.10 Interstitial cystitis (chronic) without hematuria; F17.210 Nicotine dependence, cigarettes, uncomplicated; K64.8 Other hemorrhoids; G47.33 Obstructive sleep apnea (adult) (pediatric); G89.29 Other chronic pain; E66.01 Morbid (severe) obesity due to excess calories; F31.9 Bipolar disorder, unspecified; I95.9 Hypotension, unspecified; J30.2 Other seasonal allergic rhinitis; Z87.440 Personal history of urinary (tract) infections; Z91.038 Other insect allergy status; Z79.01 Long term (current) use of anticoagulants; Z99.81 Dependence on supplemental oxygen; Z95.2 Presence of prosthetic heart valve; Z86.010 Personal history of colon polyps; Z79.899 Other long term (current) drug therapy; Z90.710 Acquired absence of both cervix and uterus; Z90.49 Acquired absence of other specified parts of digestive tract; Z98.890 Other specified postprocedural states; Z79.2 Long term (current) use of antibiotics; Z79.51 Long term (current) use of inhaled steroids; Z79.811 Long term (current) use of aromatase inhibitors; Z79.84 Long term (current) use of oral hypoglycemic drugs
CPT/HCPCS: 36415; 36430; 80048; 80053; 81001; 82947; 85014; 85018; 85025; 85027; 85610; 86850; 86900; 86901; 86923; 87077; 87086; 87186; 94760; 94762; 96374; 99285-25; A9270; C1751; C9113; J2001; J2060; J2704; J7030; J7050; J7120; P9016

== ENCOUNTER 2022-05-17 07:46 | Day surgery (SDC) | payer OTHER ==
[~2022-05-17] VITALS: Ht 167.6 cm; Wt 121.1 kg
[2022-05-17] MEDS ORDERED: POTA10T (08:20)
[2022-05-17] MEDS ORDERED: OMEP20ER (08:20)
[2022-05-17] MEDS ORDERED: ASPI81CH (08:21)
[2022-05-17] MEDS ORDERED: ERGO400 (08:21)
[2022-05-17] MEDS ORDERED: SUBLOCADE (09:16)
--- NOTE | 2022-05-17 10:45 | NUR ---
05/17/[address] AT BEDSIDE WITH PT / AWARE OF PTS 7/10 PAIN ALL OVER- DR SAID ITS NOTHING TO DO WITH PROCEDURE-PT AGREED. PT STATES HER PAIN IS CASUED FROM HER INTERSTITIAL CYSTITIS
== END 2022-05-17 10:52 | disposition home or self-care (01) ==
LOC: ORSCSDS 07:46
PROVIDERS: Internal Medicine Gastroenterology
PROC: 0DJ08ZZ Inspection of Upper Intestinal Tract, Via Natural or Artificial Opening Endoscopic (ICD-10-PCS; principal; 2022-05-17 09:15)
PROC: 0DBN8ZX Excision of Sigmoid Colon, Via Natural or Artificial Opening Endoscopic, Diagnostic (ICD-10-PCS; principal; 2022-05-17 09:15)
DX: D50.9 Iron deficiency anemia, unspecified (principal); Z86.010 Personal history of colon polyps; K22.2 Esophageal obstruction; K22.10 Ulcer of esophagus without bleeding; K63.5 Polyp of colon; K20.90 Esophagitis, unspecified without bleeding; K64.4 Residual hemorrhoidal skin tags; Z79.01 Long term (current) use of anticoagulants; I10 Essential (primary) hypertension; J44.9 Chronic obstructive pulmonary disease, unspecified; G47.33 Obstructive sleep apnea (adult) (pediatric); Z99.81 Dependence on supplemental oxygen; I50.9 Heart failure, unspecified; Z87.891 Personal history of nicotine dependence; E11.9 Type 2 diabetes mellitus without complications; F41.8 Other specified anxiety disorders; F31.9 Bipolar disorder, unspecified; Z79.899 Other long term (current) drug therapy; Z79.84 Long term (current) use of oral hypoglycemic drugs
CPT/HCPCS: 82947; 88305; A9270; J2704; J7120

== ENCOUNTER → 2022-06-17 | Outpatient (CLI) | payer OTHER ==
[~2022-06-17] MED LIST changes: +ASPI81CH; +OMEP20ER; +POTA10T; +SUBLOCADE
== END | disposition home or self-care (01) ==
LOC: LAB SHORT 13:30 → LAB 13:30
DX: R30.0 Dysuria (principal)
CPT/HCPCS: 87077; 87086; 87186

== ENCOUNTER → 2022-09-20 | Outpatient (CLI) | payer OTHER ==
[~2022-09-20] MED LIST changes: +ENOX30I
[2022-09-20 16:23] LABS: Source, Urine Clean Catch
[2022-09-20 17:55] LABS: Yeast/Fungi Urine Few /hpf
[2022-09-20 17:57] LABS: Bacteria Mod /hpf; Red Blood Cells, Urine 0-2 /hpf (0-2); Squamous Epithelial Cells Few /hpf (Few); White Blood Cells, Urine 0-2 /hpf (0-5)
== END | disposition home or self-care (01) ==
LOC: LAB SHORT 16:21 → LAB 16:21
PROVIDERS: Student in an Organized Health Care Education/Training Program
DX: N39.0 Urinary tract infection, site not specified (principal)
CPT/HCPCS: 81015; 87086; 87106

== ENCOUNTER → 2022-11-14 | Outpatient (CLI) | payer OTHER ==
[2022-11-14 16:16] LABS: International Normalized Ratio 3.43; Prothrombin Time Results 33.6 Sec (9.7-11.5)
[2022-11-14 16:34] LABS: Bun/Creatinine Ratio 17.4 (12.0-20.0); Calcium, Blood 8.7 mg/dL (8.5-10.1); Creatinine, Blood 0.52 mg/dL (0.40-1.00); Potassium, Blood 4.4 mmol/L (3.5-5.5)
== END ==
LOC: LAB SHORT 12:59 → LAB 12:59
PROVIDERS: Family Medicine; Internal Medicine Cardiovascular Disease
DX: E87.6 Hypokalemia (principal)
CPT/HCPCS: 36415; 80048; 85610

== ENCOUNTER 2023-01-01 11:42 | Emergency (ER) | payer OTHER ==
[~2023-01-01] VITALS: Ht 167.6 cm; Wt 115.7 kg
[2023-01-01] MEDS ORDERED: WARF1 (12:03)
[2023-01-01 12:46] LABS: BASOPHILS ABSOLUTE AUTO 0.02 K/mm3 (0.00-0.23); BASOPHILS PERCENT AUTO 0 % (0-2); EOSINOPHILS ABSOLUTE AUTO 0.06 K/mm3 (0.00-0.68); EOSINOPHILS PERCENT AUTO 1 % (0-6); Hematocrit 34.1 % (33.0-51.0); Hemoglobin 11.1 g/dL (11.5-16.0); IMMATURE GRAN ABSOLUTE AUTO 0.04 K/mm3 (0.00-0.10); IMMATURE GRAN PERCENT AUTO 1 % (0-1); LYMPHOCYTES ABSOLUTE AUTO 1.06 K/mm3 (0.84-5.20); LYMPHOCYTES PERCENT AUTO 18 % (21-46); MONOCYTES ABSOLUTE AUTO 0.37 K/mm3 (0.16-1.47); MONOCYTES PERCENT AUTO 6 % (4-13); Mean Corpuscular HGB 29.1 pg (26.0-34.0); Mean Corpuscular HGB Conc 32.6 g/dL (31.5-36.5); Mean Corpuscular Volume 89 fL (80-100); Mean Platelet Volume 10.3 fL (9.1-12.4); NEUTROPHILS ABSOLUTE AUTO 4.51 K/mm3 (1.96-9.15); NEUTROPHILS PERCENT AUTO 74 % (41-73); Platelet Count 210 K/mm3 (150-400); RDW Coefficient Variation 14.3 % (11.7-14.2); RDW Standard Deviation 46.3 fL (35.1-46.3); Red Blood Cell Count 3.82 M/mm3 (3.80-5.20); White Blood Cell Count 6.06 K/mm3 (4.00-11.30)
[2023-01-01 13:07] LABS: Albumin/Globulin Ratio 0.7 (0.8-1.8); Bilirubin, Total 0.2 mg/dL (0.1-1.0); Bun/Creatinine Ratio 21.4 (12.0-20.0); Calcium, Blood 8.5 mg/dL (8.5-10.1); Creatinine, Blood 0.47 mg/dL (0.40-1.00); Globulin, Blood 4.5 g/dL (2.2-4.0); Total Protein, Blood 7.5 g/dL (6.4-8.2)
[2023-01-01 13:10] LABS: Prothrombin Time Results 88.6 Sec (9.7-11.5)
[2023-01-01 13:14] LABS: International Normalized Ratio 9.59
[2023-01-01 14:35] VITALS: BP 105/76
[2023-01-01] MEDS ORDERED: PRED20 PO (14:46)
[2023-01-01] MEDS ORDERED: DOXY100 PO (14:46)
== END 2023-01-01 15:01 | disposition home or self-care (01) ==
LOC: ER 11:42
PROVIDERS: Student in an Organized Health Care Education/Training Program
DX: J96.21 Acute and chronic respiratory failure with hypoxia (principal); J44.1 Chronic obstructive pulmonary disease with (acute) exacerbation; R79.1 Abnormal coagulation profile; F17.290 Nicotine dependence, other tobacco product, uncomplicated; E11.9 Type 2 diabetes mellitus without complications; Z91.030 Bee allergy status; Z79.51 Long term (current) use of inhaled steroids; Z79.84 Long term (current) use of oral hypoglycemic drugs; Z79.899 Other long term (current) drug therapy
CPT/HCPCS: 71046; 80053; 83880; 85025; 85610; 86850; 86900; 86901; 93005; 93010; 94644; 94664; 96365; 96375; 99285-25; A9270; J2930; J3430

== ENCOUNTER 2023-01-19 07:42 | Emergency (ER) | payer OTHER ==
[~2023-01-19] VITALS: Ht 167.6 cm; Wt 117.9 kg
[~2023-01-19 07:42] MED LIST changes: +DOXY100 PO; +WARF1
[2023-01-19 08:09] LABS: BASOPHILS ABSOLUTE AUTO 0.01 K/mm3 (0.00-0.23); BASOPHILS PERCENT AUTO 0 % (0-2); EOSINOPHILS ABSOLUTE AUTO 0.03 K/mm3 (0.00-0.68); EOSINOPHILS PERCENT AUTO 0 % (0-6); Hematocrit 38.3 % (33.0-51.0); Hemoglobin 11.7 g/dL (11.5-16.0); IMMATURE GRAN ABSOLUTE AUTO 0.04 K/mm3 (0.00-0.10); IMMATURE GRAN PERCENT AUTO 0 % (0-1); LYMPHOCYTES ABSOLUTE AUTO 0.74 K/mm3 (0.84-5.20); LYMPHOCYTES PERCENT AUTO 7 % (21-46); MONOCYTES ABSOLUTE AUTO 0.64 K/mm3 (0.16-1.47); MONOCYTES PERCENT AUTO 6 % (4-13); Mean Corpuscular HGB 28.3 pg (26.0-34.0); Mean Corpuscular HGB Conc 30.5 g/dL (31.5-36.5); Mean Corpuscular Volume 93 fL (80-100); NEUTROPHILS ABSOLUTE AUTO 9.47 K/mm3 (1.96-9.15); NEUTROPHILS PERCENT AUTO 87 % (41-73); Platelet Count 197 K/mm3 (150-400); RDW Coefficient Variation 14.6 % (11.7-14.2); RDW Standard Deviation 49.3 fL (35.1-46.3); Red Blood Cell Count 4.14 M/mm3 (3.80-5.20); White Blood Cell Count 10.93 K/mm3 (4.00-11.30)
[2023-01-19 08:35] LABS: International Normalized Ratio 3.67; Prothrombin Time Results 35.8 Sec (9.7-11.5)
[2023-01-19 08:39] LABS: Albumin, Blood 3.2 g/dL (3.4-5.0); Albumin/Globulin Ratio 0.7 (0.8-1.8); Bilirubin, Total 0.3 mg/dL (0.1-1.0); Bun/Creatinine Ratio 19.7 (12.0-20.0); Calcium, Blood 8.1 mg/dL (8.5-10.1); Creatinine, Blood 0.56 mg/dL (0.40-1.00); Globulin, Blood 4.5 g/dL (2.2-4.0); Magnesium, Blood 2.1 mg/dL (1.6-2.4); Potassium, Blood 4.7 mmol/L (3.5-5.5); Total Protein, Blood 7.7 g/dL (6.4-8.2)
[2023-01-19 08:47] LABS: Base Excess Venous 5.5 mmol/L; Bicarbonate Venous 28.7 mmol/L (24.0-30.0); PCO2 Venous 47.4 mmHg (38-42); pH Blood Venous 7.41 (7.34-7.37)
[2023-01-19 08:58] LABS: Influenza A, PCR NEGATIVE (NEGATIVE); Influenza B, PCR NEGATIVE (NEGATIVE); Resp Syncytial Virus, PCR NEGATIVE (NEGATIVE); SARS-Cov-2 (COVID-19) PCR, MMC NEGATIVE (NEGATIVE)
[2023-01-19] MEDS ORDERED: ENOX100I (10:48)
[2023-01-19 12:25] LABS: Source, Urine Clean Catch
[2023-01-19 12:37] LABS: Appearance, Urine Hazy (Clear); Bilirubin, Urine Neg (Neg); Blood, Urine Neg (Neg); Color, Urine Yellow (P-Yellow); Glucose Qualitative, Urine Neg (Neg); Ketones, Urine Neg (Neg); Leukocyte Esterase, Urine 1+ (Neg); Nitrite, Urine Neg (Neg); Protein, Urine 2+ (Neg); Specific Gravity, Urine 1.015 (1.003-1.022); Urobilinogen, Urine 1+ (Normal); pH, Urine 6.5 (5.0-8.0)
[2023-01-19 12:45] VITALS: BP 124/64
[2023-01-19 13:00] LABS: Bacteria Few /hpf; Red Blood Cells, Urine 0-2 /hpf (0-2); Squamous Epithelial Cells Few /hpf (Few); White Blood Cells, Urine 0-2 /hpf (0-5); Yeast/Fungi Urine Few /hpf
== END 2023-01-19 13:19 | disposition home or self-care (01) ==
LOC: ER 07:42
PROVIDERS: Internal Medicine; Student in an Organized Health Care Education/Training Program
DX: J96.21 Acute and chronic respiratory failure with hypoxia (principal); I50.9 Heart failure, unspecified; Z91.030 Bee allergy status; Z79.899 Other long term (current) drug therapy; Z79.01 Long term (current) use of anticoagulants; Z79.84 Long term (current) use of oral hypoglycemic drugs; E11.9 Type 2 diabetes mellitus without complications; J44.9 Chronic obstructive pulmonary disease, unspecified; F17.290 Nicotine dependence, other tobacco product, uncomplicated; Z20.822 Contact with and (suspected) exposure to COVID-19
CPT/HCPCS: 0241U; 71045; 80053; 81001; 82803; 83735; 83880; 84145; 85025; 85610; 87086; 93005; 93010; 94644; 94664; 96374; 99285-25; A9270; J1940

== ENCOUNTER → 2023-01-27 | Outpatient (CLI) | payer OTHER ==
[~2023-01-27] MED LIST changes: +ENOX100I; +LIDOCAINE1 EAC1 TOP
== END ==
LOC: LAB SHORT 15:00 → LAB 15:00
DX: N10 Acute pyelonephritis (principal)
CPT/HCPCS: 87086

== ENCOUNTER 2023-01-29 08:59 | Emergency (ER) | payer OTHER ==
[~2023-01-29] VITALS: Ht 167.6 cm; Wt 108.9 kg
[~2023-01-29 08:59] MED LIST changes: +ERGO400 PO; -LIDOCAINE1 EAC1 TOP; +MAGNESIUM OXID500 MG PO; +METO100 PO; -METOPROLOL TAR PO; -OMEP20ER; -POTA10T; +POTA10T PO; -WARF1; +WARF1 PO; -[UNRECOGNIZED DRUG - CODE] PO
[2023-01-29 09:39] LABS: BASOPHILS ABSOLUTE AUTO 0.03 K/mm3 (0.00-0.23); BASOPHILS PERCENT AUTO 0 % (0-2); EOSINOPHILS ABSOLUTE AUTO 0.07 K/mm3 (0.00-0.68); EOSINOPHILS PERCENT AUTO 1 % (0-6); Hematocrit 36.9 % (33.0-51.0); Hemoglobin 11.4 g/dL (11.5-16.0); IMMATURE GRAN ABSOLUTE AUTO 0.04 K/mm3 (0.00-0.10); IMMATURE GRAN PERCENT AUTO 1 % (0-1); LYMPHOCYTES ABSOLUTE AUTO 1.53 K/mm3 (0.84-5.20); LYMPHOCYTES PERCENT AUTO 18 % (21-46); MONOCYTES ABSOLUTE AUTO 0.48 K/mm3 (0.16-1.47); MONOCYTES PERCENT AUTO 6 % (4-13); Mean Corpuscular HGB 28.6 pg (26.0-34.0); Mean Corpuscular HGB Conc 30.9 g/dL (31.5-36.5); Mean Corpuscular Volume 93 fL (80-100); Mean Platelet Volume 9.8 fL (9.1-12.4); NEUTROPHILS ABSOLUTE AUTO 6.48 K/mm3 (1.96-9.15); NEUTROPHILS PERCENT AUTO 75 % (41-73); Platelet Count 269 K/mm3 (150-400); RDW Coefficient Variation 14.8 % (11.7-14.2); Red Blood Cell Count 3.99 M/mm3 (3.80-5.20); White Blood Cell Count 8.63 K/mm3 (4.00-11.30)
[2023-01-29 09:41] LABS: Source, Urine Straight Cath
[2023-01-29 09:47] LABS: Appearance, Urine Hazy (Clear); Bilirubin, Urine Neg (Neg); Blood, Urine Neg (Neg); Color, Urine Yellow (P-Yellow); Glucose Qualitative, Urine Neg (Neg); Ketones, Urine Neg (Neg); Leukocyte Esterase, Urine 1+ (Neg); Nitrite, Urine Neg (Neg); Protein, Urine 2+ (Neg); Specific Gravity, Urine 1.015 (1.003-1.022); Urobilinogen, Urine 1+ (Normal); pH, Urine 6.5 (5.0-8.0)
[2023-01-29 09:52] LABS: Bun/Creatinine Ratio 17.4 (12.0-20.0); Calcium, Blood 8.3 mg/dL (8.5-10.1); Creatinine, Blood 0.52 mg/dL (0.40-1.00); Magnesium, Blood 2.1 mg/dL (1.6-2.4); Potassium, Blood 4.4 mmol/L (3.5-5.5)
[2023-01-29 10:07] LABS: Bacteria Few /hpf; Red Blood Cells, Urine 0-2 /hpf (0-2); Squamous Epithelial Cells Mod /hpf (Few); Yeast/Fungi Urine Rare /hpf
[2023-01-29 10:09] LABS: Transitional Epithelial Cells Rare /hpf (0-Rare)
[2023-01-29 11:03] LABS: Prothrombin Time Results >90.0 Sec (9.7-11.5)
[2023-01-29 11:06] LABS: International Normalized Ratio >10.00
[2023-01-29] MEDS ORDERED: LIDOCAINE1 EAC1 TOP (14:22)
[2023-01-29 14:41] VITALS: BP 120/70
== END 2023-01-29 15:01 | disposition home or self-care (01) ==
LOC: ER 08:59
PROVIDERS: Student in an Organized Health Care Education/Training Program
DX: S80.12XA Contusion of left lower leg, initial encounter (principal); S80.11XA Contusion of right lower leg, initial encounter; S30.1XXA Contusion of abdominal wall, initial encounter; S70.02XA Contusion of left hip, initial encounter; S09.90XA Unspecified injury of head, initial encounter; W18.30XA Fall on same level, unspecified, initial encounter; R79.1 Abnormal coagulation profile; B37.49 Other urogenital candidiasis; E87.1 Hypo-osmolality and hyponatremia; J44.9 Chronic obstructive pulmonary disease, unspecified; I50.9 Heart failure, unspecified; E11.9 Type 2 diabetes mellitus without complications; F31.9 Bipolar disorder, unspecified; F41.9 Anxiety disorder, unspecified; F17.290 Nicotine dependence, other tobacco product, uncomplicated; Z79.899 Other long term (current) drug therapy; Z79.01 Long term (current) use of anticoagulants; Z79.84 Long term (current) use of oral hypoglycemic drugs; Z91.030 Bee allergy status
CPT/HCPCS: 51701; 70450; 73562-LT; 73562-RT; 73590; 73700; 74177; 80048; 81001; 82947; 83735; 85025; 85610; 87086; 96374; 96375; 96376; 99285-25; A9270; J2270; J2405; J3430; Q9967

== ENCOUNTER 2023-01-30 09:19 | Emergency (ER) | payer OTHER ==
[~2023-01-30] VITALS: Ht 167.6 cm; Wt 117.9 kg
[~2023-01-30 09:19] MED LIST changes: +LIDOCAINE1 EAC1 TOP
[2023-01-30 10:16] LABS: Prothrombin Time Results >90.0 Sec (9.7-11.5)
[2023-01-30 10:20] LABS: International Normalized Ratio >10.00
[2023-01-30 11:21] VITALS: BP 106/74
[2023-01-31] MEDS ORDERED: Percocet 5-3251 EACH PO (08:40)
== END 2023-01-30 11:50 | disposition home or self-care (01) ==
LOC: ER 09:19
PROVIDERS: Physician Assistant
DX: M25.562 Pain in left knee (principal); R79.1 Abnormal coagulation profile; F17.290 Nicotine dependence, other tobacco product, uncomplicated; J44.9 Chronic obstructive pulmonary disease, unspecified; E11.9 Type 2 diabetes mellitus without complications; Z87.442 Personal history of urinary calculi; Z79.01 Long term (current) use of anticoagulants; Z79.890 Hormone replacement therapy; Z79.899 Other long term (current) drug therapy; Z91.09 Other allergy status, other than to drugs and biological substances
CPT/HCPCS: 85610; 93971; 94640; 94664; 96360; 99284-25; A9270; J7030

== ENCOUNTER 2023-01-31 07:58 | Inpatient (IN) | payer OTHER ==
[~2023-01-31] VITALS: Ht 167.6 cm; Wt 120.9 kg
[~2023-01-31 07:58] MED LIST changes: -ERGO400 PO; -MAGNESIUM OXID500 MG PO; -METO100 PO; +METOPROLOL TAR PO; +OMEP20ER; +POTA10T; -POTA10T PO; +WARF1; -WARF1 PO; +[UNRECOGNIZED DRUG - CODE] PO
[2023-01-31 08:40] LABS: BASOPHILS ABSOLUTE AUTO 0.02 K/mm3 (0.00-0.23); BASOPHILS PERCENT AUTO 0 % (0-2); EOSINOPHILS ABSOLUTE AUTO 0.07 K/mm3 (0.00-0.68); EOSINOPHILS PERCENT AUTO 1 % (0-6); Hematocrit 26.8 % (33.0-51.0); Hemoglobin 8.5 g/dL (11.5-16.0); IMMATURE GRAN ABSOLUTE AUTO 0.08 K/mm3 (0.00-0.10); IMMATURE GRAN PERCENT AUTO 1 % (0-1); LYMPHOCYTES ABSOLUTE AUTO 1.04 K/mm3 (0.84-5.20); LYMPHOCYTES PERCENT AUTO 8 % (21-46); MONOCYTES ABSOLUTE AUTO 0.75 K/mm3 (0.16-1.47); MONOCYTES PERCENT AUTO 5 % (4-13); Mean Corpuscular HGB 28.7 pg (26.0-34.0); Mean Corpuscular HGB Conc 31.7 g/dL (31.5-36.5); Mean Corpuscular Volume 91 fL (80-100); Mean Platelet Volume 9.8 fL (9.1-12.4); NEUTROPHILS ABSOLUTE AUTO 11.96 K/mm3 (1.96-9.15); NEUTROPHILS PERCENT AUTO 86 % (41-73); Platelet Count 263 K/mm3 (150-400); RDW Coefficient Variation 15.5 % (11.7-14.2); Red Blood Cell Count 2.96 M/mm3 (3.80-5.20); White Blood Cell Count 13.92 K/mm3 (4.00-11.30)
[2023-01-31] MEDS ORDERED: Percocet 5-3251 EACH PO (08:40)
[2023-01-31 08:53] LABS: Alanine Aminotransfer (ALT/SGP 13 U/L (12-78); Albumin, Blood 2.5 g/dL (3.4-5.0); Albumin/Globulin Ratio 0.6 (0.8-1.8); Alk Phos 112 U/L (50-136); Anion Gap 4 mmol/L (6-16); Aspartate Aminotrans (AST/SGOT 28 U/L (12-37); Bilirubin, Total 0.5 mg/dL (0.1-1.0); Blood Urea Nitrogen 22 mg/dL (8-24); Bun/Creatinine Ratio 28.2 (12.0-20.0); CO2, Blood 30 mmol/L (21-32); Calcium, Blood 8.2 mg/dL (8.5-10.1); Chloride, Blood 98 mmol/L (98-108); Creatinine, Blood 0.78 mg/dL (0.40-1.00); Ethanol (Alcohol), Blood, Med <3 mg/dL; Globulin, Blood 4.1 g/dL (2.2-4.0); Glomerular Filtration Rate 91 (60-); Glucose, Blood 201 mg/dL (70-99); Potassium, Blood 4.8 mmol/L (3.5-5.5); Sodium, Blood 132 mmol/L (136-145); Total Protein, Blood 6.6 g/dL (6.4-8.2)
[2023-01-31 09:03] LABS: Prothrombin Time Results >90.0 Sec (9.7-11.5)
[2023-01-31 09:06] LABS: International Normalized Ratio >10.00
[2023-01-31 09:55] LABS: IMMATURE RETIC FRACTION 31.2 % (2.3-16.0); RETIC HGB EQUIVALENT 31.3 pg (28.20-36.60); RETICULOCYTE ABSOLUTE 0.1045 M/mm3 (0.0200-0.1100); RETICULOCYTE COUNT PERCENT 3.63 % (0.50-2.50)
[2023-01-31 10:17] LABS: Bilirubin, Urine Neg (Neg); Blood, Urine 2+ (Neg); Color, Urine Amber (P-Yellow); Glucose Qualitative, Urine Neg (Neg); Ketones, Urine Neg (Neg); Leukocyte Esterase, Urine 1+ (Neg); Nitrite, Urine Neg (Neg); Protein, Urine 2+ (Neg); Source, Urine Straight Cath; Specific Gravity, Urine 1.025 (1.003-1.022); Urobilinogen, Urine 1+ (Normal)
[2023-01-31 10:32] LABS: U Amphetamine Screen Not Detected; U Barbituate Screen Not Detected; U Benzodiazapine Screen DETECTED; U Buprenorphine Screen DETECTED; U Cannabinoids Screen Not Detected; U Cocaine Screen Not Detected; U Methadone Screen Not Detected; U Methamphetamine Screen Not Detected; U Opiates Screen DETECTED; U Oxycodone Screen Not Detected; U Phencyclidine Screen Not Detected; U Propoxyphene Screen Not Detected
[2023-01-31 11:39] LABS: Appearance, Urine Clear (Clear); Bacteria Few /hpf; Hyaline Casts 0-2 /lpf (0-2); Squamous Epithelial Cells Few /hpf (Few); White Blood Cells, Urine 0-2 /hpf (0-5); Yeast/Fungi Urine Few /hpf
[2023-01-31 14:02] VITALS: BP 127/73
[2023-01-31 16:32] LABS: Source, Urine Foley catheter
[2023-01-31 16:55] LABS: Appearance, Urine Clear (Clear); Bilirubin, Urine Neg (Neg); Blood, Urine 4+ (Neg); Color, Urine Yellow (P-Yellow); Glucose Qualitative, Urine Neg (Neg); Ketones, Urine Neg (Neg); Leukocyte Esterase, Urine 1+ (Neg); Nitrite, Urine Neg (Neg); Protein, Urine 1+ (Neg); Urobilinogen, Urine NORM (Normal)
[2023-01-31 17:42] LABS: Bacteria Few /hpf; Squamous Epithelial Cells Rare /hpf (Few); White Blood Cells, Urine 0-2 /hpf (0-5); Yeast/Fungi Urine Few /hpf
--- NOTE | 2023-01-31 18:27 | NUR ---
ADMISSION NOTES: PATIENT ARRIVES TO ROOM AT AROUND 1400 VIA GURNEY FROM ED c DX'S OF ELEVATED TROPONIN. PATIENT IS AWAKE, ALERT AND ORIENTED TO SELF AND PLACED. PATIENT COULD NOT RECALL THE DATES, CONFUSED AND ANXIOUS AT TIMES. PATIENT REPORTS LIVES ALONE AT HOME AND HAD MULTIPLE FALLS. SKIN ASSESSMENT c 2 RN VERIFIERS COMPLETED. NOTED BRUISING TO L FOREHEAD, CHEST, BUE'S, ABDOMEN, R BUTTOCKS, R LEG, BLE'S AND ABRASION TO L KNEE. PATIENT IS DIAPHORETIC. DENIES CP/PRESSURE, N/V, SOB, AND DIZZINESS. PATIENT REPORTS PAIN 8-10/10 TO "LEFT KNEE AND ALL OVER THE BODY.", MEDICATED c IV MORPHINE c LITTLE EFFECT. PATIENT ON 3L OF O2 AT BASELINE, c SPO2 RANGES 95-97%. PATIENT ON CONITNUES PULSE OX IN ROOM. PATIENT TROPONIN STILL HIGN BUT CONTINUES TRENDING DOWN, DR. ELLIOTT AND CHARGED RN, JOSE JUAN HAS BEEN NOTIFIED c THIS ISSUES. PATIENT BS BEFORE DINNER WAS 147 c NO INSULIN COVERAGE. RECEIVED IV ABX AND PO MEDS PER EMAR. CHANDRA PLACED FOR RETENTION, PATENT DRAINING MAHIN COLOR URINE TO GRAVITY. VITAL SIGNS REVIEWED. BED ALARM ON FOR SAFETY. CALL LIGHT IN REACH.
[2023-01-31 19:24] VITALS: BP 121/66
[2023-01-31 20:56] LABS: Prothrombin Time Results >90.0 Sec (9.7-11.5)
[2023-01-31 20:57] LABS: International Normalized Ratio >10.00
[2023-02-01 05:39] VITALS: BP 115/68
[2023-02-01 05:43] LABS: Prothrombin Time Results 81.7 Sec (9.7-11.5)
[2023-02-01 05:45] LABS: International Normalized Ratio 8.8
[2023-02-01 05:47] LABS: Albumin, Blood 2.5 g/dL (3.4-5.0); Albumin/Globulin Ratio 0.6 (0.8-1.8); Bilirubin, Total 0.4 mg/dL (0.1-1.0); Bun/Creatinine Ratio 25.5 (12.0-20.0); Calcium, Blood 8.5 mg/dL (8.5-10.1); Creatinine, Blood 0.55 mg/dL (0.40-1.00); Globulin, Blood 4.5 g/dL (2.2-4.0); Potassium, Blood 4.9 mmol/L (3.5-5.5)
--- NOTE | 2023-02-01 06:11 | NUR ---
NOC SHIFT SUMMARY: TROPONIN AND INR TRENDING DOWNWARD. INR THIS AM 8.8. MD NOTIFIED. NO NEW ORDERS. PATIENT RECEIVED 5 MG OF VITAMIN K LAST NIGHT. MORPHINE AVAILABLE FOR PAIN CONTROL. PATIENT LIVES ALONE.
[2023-02-01 07:45] VITALS: BP 100/68
[2023-02-01 10:50] VITALS: BP 106/61
[2023-02-01 17:01] VITALS: BP 101/59
--- NOTE | 2023-02-01 17:25 | NUR ---
SHIFT SUMMARY: PATIENT IS AWAKE, ALERT AND ORIENTED TO SELF AND PLACED. PATIENT IS CONFUSED, FORGETFUL AND ANXIOUS AT TIMES. PATIENT DIAPHORETIC, DENIES CP/PRESSURE, SOB, N/V AND DIZZINESS. PATIENT STILL ON TELE, SR HR IN THE HIGH 70'S BPM. PATIENT REPORTS JERKY MOVEMENTS TO BUE AND SOMETIMES TO BLE'S. PATIENT CONTINUES TO REPORTS "PAIN 5-10/10 TO BILAT KNEE AND WHOLE BODY." MEDICATED X2 c PRN PO PERCOCET FOR PAIN c NO EFFECT. PER PATIENT "PERCOCET IS NOT WORKING FOR ME AT ALL." MEDICATED X2 c IV MORPHINE FOR PAIN c GOOD EFFECT. PER PATIENT "I DON'T WANT ANY PERCOCET ANYMORE, I WANT MORPHINE THAT REALLY WORKS FOR ME." PATIENT EDUCATED ON RISK AND BENEFITS OF HAVING PO AND IV PAIN MEDS. PATIENT VERBALIZED UNDERSTANDING. CHANDRA PATENT, DRAINING MAHIN COLOR URINE TO GRAVITY. PATIENT INR AND TROPONIN STILL CRITICAL HIGH, BUT CONTINUES TO BE TRENDING DOWN. PATIENT BS RANGES [phone], RECEIVED INSULIN PER EMAR COVERAGE. VITAL SIGNS REVIEWED. BED ALARM ON FOR SAFETY. CALL LIGHT IN REACH. PATIENT SON NAME, CANDICE CAME AND VISITED THE PATIENT TODAY; THIS RN GAVE AN UPDATE TO CANDICE REGARDING PLAN OF CARE. CANDICE VERBALIZED UNDERSTANDING AND REQUESTED TO BE NOTIFIED AT PHONE NUMBER [phone] FOR ANY CHANGES IN PATIENT CONDITION AND BEFORE DISCHARGING THE PATIENT BACK TO HOME. PER CANDICE HE IS CONCERN ABOUT THE PATIENT SAFETY. THE PATIENT LIVES ALONE AT HOME AND SHE HAS BEEN FALLING A LOT. 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
[2023-02-01 20:47] VITALS: BP 109/67
[2023-02-02] VITALS (8 sets, daily range): BP systolic 98–129; BP diastolic 52–82
[2023-02-02 05:28] LABS: BASOPHILS ABSOLUTE AUTO 0.01 K/mm3 (0.00-0.23); BASOPHILS PERCENT AUTO 0 % (0-2); EOSINOPHILS PERCENT AUTO 2 % (0-6); Hematocrit 22.4 % (33.0-51.0); Hemoglobin 6.9 g/dL (11.5-16.0); IMMATURE GRAN ABSOLUTE AUTO 0.05 K/mm3 (0.00-0.10); IMMATURE GRAN PERCENT AUTO 1 % (0-1); LYMPHOCYTES PERCENT AUTO 18 % (21-46); MONOCYTES ABSOLUTE AUTO 0.46 K/mm3 (0.16-1.47); MONOCYTES PERCENT AUTO 8 % (4-13); Mean Corpuscular HGB 28.4 pg (26.0-34.0); Mean Corpuscular HGB Conc 30.8 g/dL (31.5-36.5); Mean Corpuscular Volume 92 fL (80-100); Mean Platelet Volume 9.8 fL (9.1-12.4); NEUTROPHILS ABSOLUTE AUTO 4.06 K/mm3 (1.96-9.15); NEUTROPHILS PERCENT AUTO 71 % (41-73); Platelet Count 230 K/mm3 (150-400); RDW Coefficient Variation 15.2 % (11.7-14.2); RDW Standard Deviation 50.4 fL (35.1-46.3); Red Blood Cell Count 2.43 M/mm3 (3.80-5.20); White Blood Cell Count 5.68 K/mm3 (4.00-11.30)
[2023-02-02 06:02] LABS: Albumin, Blood 2.4 g/dL (3.4-5.0); Anion Gap 5 mmol/L (6-16); Blood Urea Nitrogen 15 mg/dL (8-24); Bun/Creatinine Ratio 22.4 (12.0-20.0); CO2, Blood 34 mmol/L (21-32); Calcium, Blood 8.4 mg/dL (8.5-10.1); Chloride, Blood 94 mmol/L (98-108); Creatinine, Blood 0.67 mg/dL (0.40-1.00); Glomerular Filtration Rate 104 (60-); Glucose, Blood 203 mg/dL (70-99); Phosphorus, Blood 4.6 mg/dL (2.5-4.9); Potassium, Blood 3.9 mmol/L (3.5-5.5); Sodium, Blood 133 mmol/L (136-145)
--- NOTE | 2023-02-02 06:24 | NUR ---
NOC SHIFT SUMMARY: PT. VERY CONCERNED ABOUT NOT BEING ON HER BUPRENORPHINE. SHE WOULD LIKE TO TALK WITH MD ABOUT HER CONCERNS. H&H LEVELS DROPPED THIS AM TO 6.9/22.4. 1 UNIT OF BLOOD ORDERED. PERCOCET AND MORPHINE GIVEN ONCE FOR PAIN CONTROL. POWERGLIDE INSERTED THIS AM.
[2023-02-02 08:12] LABS: Percent Saturation 14.3 % (15.0-50.0)
[2023-02-02 08:24] LABS: Prothrombin Time Results 44.3 Sec (9.7-11.5)
[2023-02-02 08:35] LABS: International Normalized Ratio 4.6
--- NOTE | 2023-02-02 16:32 | NUR ---
SHIFT SUMMARY: PATIENT IS AWAKE, ALERT AND ORIENTED TO SELF, AND PLACED. CONFUSED, VERY ANXIOUS c OVERALL CARE, FORGETFUL AND DEFENSIVE. THIS RN HAS CONSTANTLY REORIENTATED THE PATIENT c PLAN OF CARE WELL HER PAIN MEDICATION MANAGEMENT. PATIENT CONTINUES TO REPORTS PAIN 8-10/10 TO "BOTH KNEE AND WHOLE BODY" PER PATIENT "MY PAIN HAS NOT BEEN MANAGED SINCE I ADMITTED TO THIS HOSPITAL, I WANT MY SUBOXONE BACK AND I WANT MY DIET CHANGED TO REGULAR NOT A DIABETIC DIET AND BESIDE I'M NOT DIABETIC." THIS RN SPOKE TO DR. KEARNEY CONCERNING PATIENT PAIN MANAGEMENT AND PATIENT REQUEST. DR. KEARNEY SPOKE TO PATIENT c THIS RN IN ROOM, PER DR. KEARNEY "SHE WILL MAKE SOME CHANGES c HER MEDICATIONS, UPDATED THE PATIENT c HER MEDICAL CONDITION AND SHE WILL LOOK INTO HER DIET." PATIENT CONTINUES TO REPORTS NO ONE HAS TALKING TO HER OF WHAT'S GOING ON AND NO ONE IS CHECKING IN ON HER." [facility], THIS RN CONSTANTLY ROUNDING, REORINTATING THE PATIENT c THE PLAN OF CARE AND DR. KEARNEY SPENT TIME EXPLAINING THE PATIENT REGARDING HER MEDICAL CONDITION AND PLAN OF CARE. TC DE SANTIAGO AND DIOGENES RN WAS OUTSIDE THE ROOM AND ABLE TO VERIFIED THIS ISSUES. H/H 6.9/22.4, PATIENT RECEIVED ONE UNIT OF PRBC TODAY. INR STILL CRITICAL HIGH BUT CONTINUES TRENDING DOWN. NOTED JERKY MOVEMENTS MAINLY TO BUE'S AND SOMETIMES TO BLE'S, PATIENT RECEIVED DOSES OF SUBOXONE PER EMAR. CHANDRA PATENT, DRAINING MAHIN COLOR URINE TO GRAVITY. PATIENT STILL ON TELE, SR HR IN THE HIGH 60'S-70'S BPM c 1ST DEGREE HB. DENIES CP/PRESSURE, SOB, N/V AND DIZZINESS. PATIENT DECLINED BEDBATH TODAY. PATIENT ON 3L OF O2 AT BASELINE. HEATING PAD PLACED TO BLE'S PER PATIENT REQUEST. VITAL SIGNS REVIEWED. BED ALARM ON FOR SAFETY. CALL LIGHT IN REACH.
[2023-02-03 04:57] VITALS: BP 149/80
[2023-02-03 05:37] LABS: BASOPHILS ABSOLUTE AUTO 0.02 K/mm3 (0.00-0.23); BASOPHILS PERCENT AUTO 0 % (0-2); EOSINOPHILS ABSOLUTE AUTO 0.08 K/mm3 (0.00-0.68); EOSINOPHILS PERCENT AUTO 1 % (0-6); Hematocrit 26.5 % (33.0-51.0); Hemoglobin 8.5 g/dL (11.5-16.0); IMMATURE GRAN ABSOLUTE AUTO 0.06 K/mm3 (0.00-0.10); IMMATURE GRAN PERCENT AUTO 1 % (0-1); LYMPHOCYTES ABSOLUTE AUTO 1.22 K/mm3 (0.84-5.20); LYMPHOCYTES PERCENT AUTO 20 % (21-46); MONOCYTES ABSOLUTE AUTO 0.47 K/mm3 (0.16-1.47); MONOCYTES PERCENT AUTO 8 % (4-13); Mean Corpuscular HGB 28.8 pg (26.0-34.0); Mean Corpuscular HGB Conc 32.1 g/dL (31.5-36.5); Mean Corpuscular Volume 90 fL (80-100); Mean Platelet Volume 9.9 fL (9.1-12.4); NEUTROPHILS ABSOLUTE AUTO 4.34 K/mm3 (1.96-9.15); NEUTROPHILS PERCENT AUTO 70 % (41-73); NRBC ABSOLUTE 0.03 K/mm3 (0.00-0.02); NRBC Auto 0.5 /100 WBC (0.0-0.2); Platelet Count 267 K/mm3 (150-400); RDW Standard Deviation 46.7 fL (35.1-46.3); Red Blood Cell Count 2.95 M/mm3 (3.80-5.20); White Blood Cell Count 6.19 K/mm3 (4.00-11.30)
[2023-02-03 05:47] LABS: Bun/Creatinine Ratio 20.7 (12.0-20.0); Calcium, Blood 8.5 mg/dL (8.5-10.1); Creatinine, Blood 0.58 mg/dL (0.40-1.00); Potassium, Blood 3.9 mmol/L (3.5-5.5)
[2023-02-03 05:56] LABS: International Normalized Ratio 2.99; Prothrombin Time Results 29.5 Sec (9.7-11.5)
--- NOTE | 2023-02-03 06:20 | NUR ---
NOC SHIFT SUMMARY: PT. UPSET AT SHIFT CHANGE. UPSET ABOUT MEDICATIONS, NOT RECIEVING DINNER. WHEN OFFERED SOMETHING TO EAT, PATIENT ASKED FOR A SPRITE ONLY. 2100 MEDICATIONS GIVEN. PT. SLEPT WELL OVERNIGHT. PT. WOKE UP AT 0400 AND WAS VERY UPSET. PT. STATING TO THIS RN SHE IS GOING TO TALK WITH MD'S ABOUT CARE SHE IS RECEIVING. CHANDRA CATHETER CARE COMPLETED. BLOOD WORK OBTAINED FROM [employer].
[2023-02-03 07:17] VITALS: BP 135/69
--- NOTE | 2023-02-03 10:45 | NUR ---
CALLED DR. MARTÍNEZ NOTIFIED DR. MARTÍNEZ OF PT C/O FEELING FLUSHED AFTER ANTIBIOTIC ADMINISTRATION. PT'S FACE WAS HOT TO TOUCH, PT ADMITS HX OF ANTIBIOTIC USE W/O REACTION. PER DR. MARTÍNEZ OK TO GIVE BENEDRYL.
--- NOTE | 2023-02-03 12:56 | NUR ---
CALLED DR. MARTÍNEZ NOTIFIED DR. MARTÍNEZ OF PT LEAVING AMA.
--- NOTE | 2023-02-03 13:01 | NUR ---
PT LEAVING AMA PT UPSET, YELLING AT STAFF, WANTING TO LEAVE. TWISTER TENDER NOTIFIED OF AMA AND SPOKE TO PT AT BEDSIDE. CHANDRA AND POWERGLIDE REMOVED. PT REFUSED TO SIGN AMA FORM, DR. MARTÍNEZ NOTIFIED, WITNESSED BY 2 RN, PT ESCOURTED OUT TO PT ENTRANCE VIA W/C BY JONNATHAN HARDWICK.
== END 2023-02-03 13:10 | disposition left against medical advice (07) | DRG 811 ==
LOC: ER 07:58 → MEDS 11:29
PROVIDERS: Emergency Medicine; Internal Medicine; Student in an Organized Health Care Education/Training Program; ADMIT Hospitalist
PROC: 30233N1 Transfusion of Nonautologous Red Blood Cells into Peripheral Vein, Percutaneous Approach (ICD-10-PCS; principal; 2023-01-31)
DX: D64.89 Other specified anemias (principal); I21.A1 Myocardial infarction type 2; I50.32 Chronic diastolic (congestive) heart failure; D68.9 Coagulation defect, unspecified; J96.11 Chronic respiratory failure with hypoxia; R77.8 Other specified abnormalities of plasma proteins; J44.9 Chronic obstructive pulmonary disease, unspecified; G89.29 Other chronic pain; F31.9 Bipolar disorder, unspecified; F41.9 Anxiety disorder, unspecified; W19.XXXA Unspecified fall, initial encounter; B96.89 Other specified bacterial agents as the cause of diseases classified elsewhere; F17.210 Nicotine dependence, cigarettes, uncomplicated; E11.43 Type 2 diabetes mellitus with diabetic autonomic (poly)neuropathy; K31.84 Gastroparesis; E87.70 Fluid overload, unspecified; R29.6 Repeated falls; M79.605 Pain in left leg; S80.02XA Contusion of left knee, initial encounter; Z53.29 Procedure and treatment not carried out because of patient's decision for other reasons; Z79.01 Long term (current) use of anticoagulants; Z87.442 Personal history of urinary calculi; Z95.2 Presence of prosthetic heart valve; Z98.890 Other specified postprocedural states; Z90.710 Acquired absence of both cervix and uterus; Z90.722 Acquired absence of ovaries, bilateral; Z90.49 Acquired absence of other specified parts of digestive tract; Z90.89 Acquired absence of other organs; Z91.038 Other insect allergy status; Z79.899 Other long term (current) drug therapy; Z79.51 Long term (current) use of inhaled steroids; Z79.84 Long term (current) use of oral hypoglycemic drugs; Z79.2 Long term (current) use of antibiotics; Z60.2 Problems related to living alone
CPT/HCPCS: 36415; 51701; 51798; 71045; 80048; 80053; 80069; 81001; 82607; 82728; 82746; 82947; 83036; 83540; 83550; 83615; 83880; 84484; 85025; 85045; 85610; 85651; 86140; 86850; 86900; 86901; 86923; 87086; 93005; 93010; 93306; 94640; 94664; 94762; 97165; 97530; 97535; 99285-25; A9270; C9113; J0572; J0696; J1940; J2270; J3420; J7050; P9016

== ENCOUNTER 2023-02-07 13:29 | Inpatient (IN) | payer OTHER ==
[~2023-02-07] VITALS: Ht 167.6 cm; Wt 120.2 kg
[~2023-02-07 13:29] MED LIST changes: +ERGO400 PO; +MAGNESIUM OXID500 MG PO; +METO100 PO; -METOPROLOL TAR PO; -OMEP20ER; -POTA10T; +POTA10T PO; -WARF1; +WARF1 PO; -[UNRECOGNIZED DRUG - CODE] PO
[2023-02-07 15:10] LABS: BASOPHILS ABSOLUTE AUTO 0.02 K/mm3 (0.00-0.23); BASOPHILS PERCENT AUTO 0 % (0-2); EOSINOPHILS ABSOLUTE AUTO 0.12 K/mm3 (0.00-0.68); EOSINOPHILS PERCENT AUTO 2 % (0-6); Hematocrit 25.5 % (33.0-51.0); Hemoglobin 8.2 g/dL (11.5-16.0); IMMATURE GRAN ABSOLUTE AUTO 0.13 K/mm3 (0.00-0.10); IMMATURE GRAN PERCENT AUTO 2 % (0-1); LYMPHOCYTES ABSOLUTE AUTO 1.06 K/mm3 (0.84-5.20); LYMPHOCYTES PERCENT AUTO 17 % (21-46); MONOCYTES ABSOLUTE AUTO 0.44 K/mm3 (0.16-1.47); MONOCYTES PERCENT AUTO 7 % (4-13); Mean Corpuscular HGB 29.3 pg (26.0-34.0); Mean Corpuscular HGB Conc 32.2 g/dL (31.5-36.5); Mean Corpuscular Volume 91 fL (80-100); Mean Platelet Volume 10.7 fL (9.1-12.4); NEUTROPHILS ABSOLUTE AUTO 4.57 K/mm3 (1.96-9.15); NEUTROPHILS PERCENT AUTO 72 % (41-73); Platelet Count 289 K/mm3 (150-400); RDW Coefficient Variation 16.8 % (11.7-14.2); RDW Standard Deviation 53.4 fL (35.1-46.3); White Blood Cell Count 6.34 K/mm3 (4.00-11.30)
[2023-02-07 15:59] LABS: Influenza A, PCR NEGATIVE (NEGATIVE); Influenza B, PCR NEGATIVE (NEGATIVE); Resp Syncytial Virus, PCR NEGATIVE (NEGATIVE); SARS-Cov-2 (COVID-19) PCR, MMC NEGATIVE (NEGATIVE)
[2023-02-07 16:19] LABS: Albumin, Blood 2.4 g/dL (3.4-5.0); Albumin/Globulin Ratio 0.5 (0.8-1.8); Bilirubin, Total 0.3 mg/dL (0.1-1.0); Bun/Creatinine Ratio 22.4 (12.0-20.0); Calcium, Blood 7.7 mg/dL (8.5-10.1); Creatinine, Blood 0.49 mg/dL (0.40-1.00); Globulin, Blood 4.4 g/dL (2.2-4.0); Total Protein, Blood 6.8 g/dL (6.4-8.2)
[2023-02-07 16:44] LABS: Prothrombin Time Results 81.3 Sec (9.7-11.5)
[2023-02-07 17:07] LABS: International Normalized Ratio 8.75
[2023-02-07] MEDS ORDERED: METF500 PO (20:48)
--- NOTE | 2023-02-07 22:13 | NUR ---
PT ARRIVED TO PCU AT 2019. PT ABLE TO TRANSFER SELF TO PCU BED , TOLERATED WELL. PT ON 3L NC AT TIME OF ARRIVAL. PT A/OX4 AND COOPERATIVE. PT ORIENTED TO ROOM AND BLOOD CONSENT AND INFORMATION RELEASE FORMS SIGNED BY PT. REPORT GIVEN TO STATION WORKER AND FORWARDED TO THIS RN BY STATION WORKER.
[2023-02-07 23:49] VITALS: BP 108/60
[2023-02-08] VITALS (8 sets, daily range): BP systolic 100–121; BP diastolic 49–97
[2023-02-08 03:58] LABS: Hematocrit 26.9 % (33.0-51.0); Hemoglobin 8.4 g/dL (11.5-16.0)
[2023-02-08 04:21] LABS: Bun/Creatinine Ratio 17.8 (12.0-20.0); Calcium, Blood 8.1 mg/dL (8.5-10.1); Creatinine, Blood 0.56 mg/dL (0.40-1.00)
--- NOTE | 2023-02-08 04:58 | NUR ---
SHIFT SUMMARY PT A/OX4, ANXIOUS ABOUT CARE. PT USING CALL LIGHT APPROPIATELY TO EXPRESS NEEDS. PT VSS THROUGHOUT SHIFT WITH O2 SATS IN THE 90'S ON 3L NC. SBP'S 100'S. PT ABLE TO AMBULATE TO TOILET, SBA. PT EXPRESSED CHEST PRESSURE STATING "FEELS LIKE SOMETHING SITTING ON ME." PT DEMANDED HOME DOSE SERQUEL FOR SLEEPING, CALL PLACED TO MD FOR ORDER. PT SLEPT FOR MAJORITY OF SHIFT. BED IN LOWEST POSITION, CALL LIGHT WITHIN REACH.
[2023-02-08 06:00] LABS: Prothrombin Time Results >90.0 Sec (9.7-11.5)
[2023-02-08 06:02] LABS: International Normalized Ratio >10.00
--- NOTE | 2023-02-08 08:45 | NUR ---
I TALKED TO DR. GU AND DR. KAIDEN Samayoa ABOUT SOFT BP'S AND THEY WANTED ME TO STILL GIVE THE METOPROLOL AND LASIX. I CHECKED THE BP AGAIN RIGHT BEFORE ADMINISTRATION AND DR. RICHEY WAS IN THE [place]. SHE TOLD ME TO STILL GIVE THE MEDS. SENIOR BUSINESS DEVELOPMENT ANALYST NOTIFIED TO HELP MONITOR BP'S. EDUCATION PROVIDED TO PT.
--- NOTE | 2023-02-08 10:15 | NUR ---
PT TOOK HER HOME DOSE OF NALOXONE AT ABOUT 0930 THIS MORNING THE PT AND I SPOKE TO THE DR. ABOUT STARTING HER NALOXONE. THE DR. WANTED TO VERIFY THE ORDER BEFORE PUTTING IT IN. THE PT WAS COMPLAINING OF PAIN AND I MEDICATED HER WITH ALL OF HER PRN PAIN MEDICATIONS, OFFERED A HEATING OR COOLING PAD, AND REPOSITIONED HER. NAAIEL WAITING ON THE DRDk TO VERIFY HER HOME DOSE THE PT TOOK HER HOME DOSE OF 6MG NALOXONE. I CALLED THE PROVIDER AND SHE SAID IT WAS FINE BUT IT IS GOING TO COUNT FOR HER FIRST DOSE OF THE MEDICATION. I CONFINSCATED THE PT'S MEDICATIONS AND THEY WERE LOCKED UP IN PHARMACY. A VAPE PEN WAS FOUND AT THIS TIME AND WAS LOCKED UP IN THE LOCK BOX WELL. PT WAS PROVIDED EDUCATION. SHE WAS COOPERATIVE AND STATED SHE ONLY TOOK IT BECAUSE OF HER PAIN. SPOKE TO THE CHARGE NURSE WELL.
[2023-02-08 13:59] LABS: Source, Urine Clean Catch
[2023-02-08 14:04] LABS: Appearance, Urine Hazy (Clear); Bilirubin, Urine Neg (Neg); Blood, Urine Neg (Neg); Color, Urine Yellow (P-Yellow); Glucose Qualitative, Urine Neg (Neg); Ketones, Urine Neg (Neg); Leukocyte Esterase, Urine Neg (Neg); Nitrite, Urine Neg (Neg); Protein, Urine 1+ (Neg); Specific Gravity, Urine 1.015 (1.003-1.022); Urobilinogen, Urine 1+ (Normal)
[2023-02-08 14:55] LABS: Bacteria Mod /hpf; Mucus Light (0-Heavy); Red Blood Cells, Urine 0-2 /hpf (0-2); Squamous Epithelial Cells Few /hpf (Few); White Blood Cells, Urine 0-2 /hpf (0-5)
--- NOTE | 2023-02-08 17:07 | NUR ---
SHIFT SUMMARY PT IS A&OX4, BUT HAS BEEN DIFFICULT WITH PATIENCE. THE PT DID TAKE A HOME MEDICATION THIS AM. SEE PREVIOUS NOTE FOR MORE INFORMATION. PT STATES THAT HER PAIN HAS BEEN COMPLETELY UNCONTROLLED TODAY EVEN AFTER RESUMING ALL OF HER HOME MEDICATIONS. SHE HAS BEEN ABLE TO SLEEP AND REST IN THE ROOM. IF THE PT IS NOT RECIEVING HER MEDICATIONS ON THE HOUR THEN SHE PROCEEDS TO CALL MULTIPLE TIMES DESPITE IF STAFF IS CAUGHT UP. SHE HAD A HOT FLASH TODAY AND HER TEMP WENT TO 99.5 AND THE PT BEGAN TO PANIC THINKING THAT IT CORRELATES TO NEEDING "A BLOOD TRANSFUSION" I EXPLAINED TO THE PT THAT HER HGB HAS TRENDED UP AND WE HAVE LABS ORDERED TO RECHECK IN THE MORNING. I HAVE BEEN MONITORING HER BRUISING AND HER BRUISING HAS NOT SPREAD OUTSIDE OF THE MARKED LINES OR WORSENED. PT IS ON RA WHEN AWAKE BUT ON 3L NC WHEN ASLEEP. SHE HAS DENIED SOB AND CHEST PRESSURE. ALSO, THE PT STATED THAT SHE EXPECTED FOR HER FAMILY TO BE CALLED AND WHEN ASKED IF SHE WOULD LIKE HELP USING THE PHONE AND DIALING THE NUMBER SHE REFUSED. I WROTE THE NUMBERS DOWN ON THE BOARD AND SHOWED HER HOW TO USE HER PHONE. ALSO, THE PT STATED THAT SHE WAS FIGHTING A UTI PRIOR TO ADMISSION AND NEVER FINISHED HER ANTIBIOTICS. WE OBTAINED A UTI THIS AFTERNOOB. WAS NOTIFIED. PT'S VAPE PEN IS LOCKED IN THE DRAWER AND HER HOME MEDS ARE LOCKED IN PHARMACY.
--- NOTE | 2023-02-08 18:38 | NUR ---
CALLED DR. 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 ALSO, SHE STATED THAT SHE FEELS SHE IS HAVING A FLARE UP OF HER GENITAL WARTS. I LET DR. RICHEY KNOW AND SHE STATED THAT SHE WILL LOOK AT WHAT MEDICATIONS THE PT TAKES OUT PATIENT AND RESTART THEM IF APPLICABLE.
--- NOTE | 2023-02-08 18:40 | NUR ---
PHONE CALL WITH PHARMACY ABOUT SUBOXONE PT IS REQUESTING HER SECOUND PRN DOSE OF 2MG SUBOXONE ONLY TWO HOURS AFTER RECIVING HER FIRST PRN DOSE. ALSO, THE PT HAS RECIEVED TWO FULL DOSES OF THE 8MG SUBOXONE TODAY. I DID NOT FEEL LIKE THIS WAS AN APPROPRAITE REQUEST SO I DISCUSSED IT WITH MY CHARGE NURSE DAXA POWERS AND A PHARMACIST. THE PHARMACIST STATED THAT AN APPROPRAITE RANGE FOR A BID PRN MEDICATION IS 12 HOURS APART. CHARGE NURSE DAXA AND I DISCUSSED THIS WITH THE PT. SHE DID REFUSE HER LASIX DUE TO BLADDER SPASMS/PAIN.
--- NOTE | 2023-02-08 21:11 | NUR ---
ASSUMED CARE FOR PT AT 1900. PT EXPRESS FRUSTRATION ABOUT MEDICATIONS AND FREQUENCY OF WHEN SHE CAN RECIEVE THEM. PT STATED "I AM TAKING MY SUBOXONE, SEROQUEL, ACYCLOVIR AND GOING TO BED." THIS RN OPENED EMAR AND STATED MEDS THAT WERE DUE AT 2100, PT AGREED TO TAKE THEM. PT THEN EXPRESSED FRUSTRATION OF DAY RN TRYING TO GIVE LASIX AT 1800. THIS RN ATTEMPTED TO EDUCATE PT ON WHY SHE WAS TO RECIEVE LASIX, PT BECAME AGITATED AND CUT THIS RN OFF IN MIDDLE OF EDUCATION. PT REFUSED TO LISTEN TO RATIONAL AND STATED "I WILL NOT TAKE IT. ME AND DOCTOR KAIDEN ARE GOING TO HAVE A MAJOR CONVERSATION TOMORROW." PT TOOK EVENING MEDS WITH EXCEPTION TO 1800 LASIX.
[2023-02-09 03:53] VITALS: BP 106/62
[2023-02-09 04:34] LABS: Hematocrit 27.1 % (33.0-51.0); Hemoglobin 8.4 g/dL (11.5-16.0)
[2023-02-09 04:54] LABS: International Normalized Ratio 3.91
[2023-02-09 04:59] LABS: Bun/Creatinine Ratio 19.5 (12.0-20.0); Calcium, Blood 8.6 mg/dL (8.5-10.1); Creatinine, Blood 0.56 mg/dL (0.40-1.00); Potassium, Blood 4.3 mmol/L (3.5-5.5)
--- NOTE | 2023-02-09 05:06 | NUR ---
SHIFT SUMMARY PT A/OX3-4. PT ANXIOUS ABOUT VS AND MEDICATIONS. PT REFUSED LASIX YESTERDAY, SEE PREVIOUS NOTES. PT EXPRESSED FRUSTRTION OVER MEDICATION TIMES. PT RECIEVED EVENING DOSES AND STATED THAT SHE WANTED TO SLEEP WITHOUT INTERUPTIONS. PT VSS THROUGHOUT SHIFT WITH O2 SATS IN [place] 90'S ON RA-3L NC. PT REMOVED NC DURING SLEEP, SATS STABLE. PT UP TO BATHROOM DURING SHIFT, SBA, TOLERATED WELL. NO REPORT OF SOB/DYSPNEA. PT DOES REPORT "SLIGHT PRESSURE" WHEN ASKED IF SHE HAS CHEST PAIN/PRESSURE.
[2023-02-09 07:58] VITALS: BP 122/65
[2023-02-09] MEDS ORDERED: Masophen500 MG PO (10:56)
[2023-02-09 11:09] VITALS: BP 105/59
--- NOTE | 2023-02-09 11:53 | NUR ---
D/C SUMMARY PT D/C'D AT 1152 THIS AM. HER VAPE AND HOME SUBOXONE WAS RETURNED AT DISCHARGE. I WENT OVER D/C INSTRUCTIONS WITH THE PT AND ANSWERED ANY QUESTIONS. OUR PHARAMACY TOLD ME TO LET THE PT KNOW THAT THEY WILL CALL HER IN A FEW HOURS ABOUT HER COUMADIN. PT IS AWARE AND WILL LOOK FO RHER PHONE WHEN SHE GETS HOME.
== END 2023-02-09 11:52 | disposition home or self-care (01) | DRG 291 ==
LOC: ER 13:29 → PCU 13:30
PROVIDERS: Emergency Medicine; Family Medicine; ADMIT Hospitalist
DX: I11.0 Hypertensive heart disease with heart failure (principal); I50.33 Acute on chronic diastolic (congestive) heart failure; J96.11 Chronic respiratory failure with hypoxia; E87.1 Hypo-osmolality and hyponatremia; D64.9 Anemia, unspecified; R77.8 Other specified abnormalities of plasma proteins; R07.9 Chest pain, unspecified; Z11.52 Encounter for screening for COVID-19; J44.9 Chronic obstructive pulmonary disease, unspecified; I50.9 Heart failure, unspecified; E11.9 Type 2 diabetes mellitus without complications; F31.9 Bipolar disorder, unspecified; F41.9 Anxiety disorder, unspecified; F17.290 Nicotine dependence, other tobacco product, uncomplicated; I95.9 Hypotension, unspecified; I44.0 Atrioventricular block, first degree; Z91.030 Bee allergy status; Z79.01 Long term (current) use of anticoagulants; Z95.2 Presence of prosthetic heart valve; Z79.84 Long term (current) use of oral hypoglycemic drugs
CPT/HCPCS: 0241U; 36415; 71045; 73562-LT; 73562-RT; 73620; 80048; 80053; 81001; 83880; 84145; 84484; 85014; 85018; 85025; 85610; 93005; 93010; 94640; 94664; 94760; 96374; 97116; 97161; 99285-25; A9270; G0378; J0572; J1940

== ENCOUNTER 2023-02-18 15:49 | Emergency (ER) | payer OTHER ==
[~2023-02-18] VITALS: Ht 167.6 cm; Wt 117.9 kg
[~2023-02-18 15:49] MED LIST changes: +Masophen500 MG PO
[2023-02-18 15:54] VITALS: BP 119/66
[2023-02-18 16:29] LABS: White Blood Cell Count 6.43 K/mm3 (4.00-11.30)
[2023-02-18 16:30] LABS: BASOPHILS ABSOLUTE AUTO 0.02 K/mm3 (0.00-0.23); BASOPHILS PERCENT AUTO 0 % (0-2); EOSINOPHILS ABSOLUTE AUTO 0.06 K/mm3 (0.00-0.68); EOSINOPHILS PERCENT AUTO 1 % (0-6); Hematocrit 32.2 % (33.0-51.0); IMMATURE GRAN ABSOLUTE AUTO 0.02 K/mm3 (0.00-0.10); IMMATURE GRAN PERCENT AUTO 0 % (0-1); LYMPHOCYTES ABSOLUTE AUTO 1.18 K/mm3 (0.84-5.20); LYMPHOCYTES PERCENT AUTO 18 % (21-46); MONOCYTES ABSOLUTE AUTO 0.52 K/mm3 (0.16-1.47); MONOCYTES PERCENT AUTO 8 % (4-13); Mean Corpuscular HGB 29.6 pg (26.0-34.0); Mean Corpuscular HGB Conc 31.1 g/dL (31.5-36.5); Mean Corpuscular Volume 95 fL (80-100); Mean Platelet Volume 9.8 fL (9.1-12.4); NEUTROPHILS ABSOLUTE AUTO 4.63 K/mm3 (1.96-9.15); NEUTROPHILS PERCENT AUTO 72 % (41-73); Platelet Count 257 K/mm3 (150-400); RDW Coefficient Variation 17.4 % (11.7-14.2); RDW Standard Deviation 60.1 fL (35.1-46.3); Red Blood Cell Count 3.38 M/mm3 (3.80-5.20)
== END 2023-02-18 17:06 ==
LOC: ER 15:49
PROVIDERS: Student in an Organized Health Care Education/Training Program
DX: R79.1 Abnormal coagulation profile (principal); Z53.29 Procedure and treatment not carried out because of patient's decision for other reasons; Z79.01 Long term (current) use of anticoagulants; Z51.81 Encounter for therapeutic drug level monitoring; I10 Essential (primary) hypertension; D50.8 Other iron deficiency anemias; I34.0 Nonrheumatic mitral (valve) insufficiency; Z95.2 Presence of prosthetic heart valve; Z95.4 Presence of other heart-valve replacement
CPT/HCPCS: 36415; 85014; 85018; 85025; 85610; 85730; 99282

== ENCOUNTER 2023-02-28 16:55 | Emergency (ER) | payer OTHER ==
[~2023-02-28] VITALS: Ht 167.6 cm; Wt 113.4 kg
[2023-02-28 17:46] LABS: BASOPHILS ABSOLUTE AUTO 0.02 K/mm3 (0.00-0.23); BASOPHILS PERCENT AUTO 1 % (0-2); EOSINOPHILS ABSOLUTE AUTO 0.06 K/mm3 (0.00-0.68); EOSINOPHILS PERCENT AUTO 2 % (0-6); Hematocrit 31.6 % (33.0-51.0); Hemoglobin 9.7 g/dL (11.5-16.0); IMMATURE GRAN ABSOLUTE AUTO 0.03 K/mm3 (0.00-0.10); IMMATURE GRAN PERCENT AUTO 1 % (0-1); LYMPHOCYTES ABSOLUTE AUTO 0.79 K/mm3 (0.84-5.20); LYMPHOCYTES PERCENT AUTO 21 % (21-46); MONOCYTES ABSOLUTE AUTO 0.51 K/mm3 (0.16-1.47); MONOCYTES PERCENT AUTO 13 % (4-13); Mean Corpuscular HGB 29.3 pg (26.0-34.0); Mean Corpuscular HGB Conc 30.7 g/dL (31.5-36.5); Mean Corpuscular Volume 96 fL (80-100); Mean Platelet Volume 10.1 fL (9.1-12.4); NEUTROPHILS ABSOLUTE AUTO 2.39 K/mm3 (1.96-9.15); NEUTROPHILS PERCENT AUTO 63 % (41-73); Platelet Count 225 K/mm3 (150-400); RDW Coefficient Variation 16.9 % (11.7-14.2); RDW Standard Deviation 59.2 fL (35.1-46.3); Red Blood Cell Count 3.31 M/mm3 (3.80-5.20)
[2023-02-28 18:02] LABS: Albumin, Blood 2.6 g/dL (3.4-5.0); Albumin/Globulin Ratio 0.6 (0.8-1.8); Bilirubin, Total 0.4 mg/dL (0.1-1.0); Bun/Creatinine Ratio 16.7 (12.0-20.0); Calcium, Blood 8.3 mg/dL (8.5-10.1); Creatinine, Blood 0.54 mg/dL (0.40-1.00); Globulin, Blood 4.5 g/dL (2.2-4.0); Total Protein, Blood 7.1 g/dL (6.4-8.2)
[2023-02-28 18:03] LABS: Source, Urine Clean Catch
[2023-02-28 18:09] LABS: Prothrombin Time Results 48.7 Sec (9.7-11.5)
[2023-02-28 18:10] LABS: Appearance, Urine Hazy (Clear); Blood, Urine 1+ (Neg); Color, Urine Amber (P-Yellow); Glucose Qualitative, Urine Neg (Neg); Ketones, Urine Neg (Neg); Leukocyte Esterase, Urine 1+ (Neg); Nitrite, Urine Neg (Neg); Protein, Urine 2+ (Neg); Urobilinogen, Urine 4+ (Normal)
[2023-02-28 18:14] LABS: Bilirubin, Urine 1+ (Neg)
[2023-02-28 18:16] LABS: International Normalized Ratio 5.09
[2023-02-28 18:28] LABS: Red Blood Cells, Urine 0-2 /hpf (0-2); Squamous Epithelial Cells Few /hpf (Few)
[2023-02-28 18:29] LABS: Bacteria Few /hpf
[2023-02-28 18:30] VITALS: BP 117/61
[2023-02-28 19:04] LABS: Influenza A, PCR NEGATIVE (NEGATIVE); Influenza B, PCR NEGATIVE (NEGATIVE); Resp Syncytial Virus, PCR NEGATIVE (NEGATIVE); SARS-Cov-2 (COVID-19) PCR, MMC NEGATIVE (NEGATIVE)
== END 2023-02-28 20:01 | disposition left against medical advice (07) ==
LOC: ER 16:55
PROVIDERS: Emergency Medicine
DX: S82.002A Unspecified fracture of left patella, initial encounter for closed fracture (principal); S09.90XA Unspecified injury of head, initial encounter; F17.290 Nicotine dependence, other tobacco product, uncomplicated; I50.9 Heart failure, unspecified; E11.9 Type 2 diabetes mellitus without complications; J44.9 Chronic obstructive pulmonary disease, unspecified; F31.9 Bipolar disorder, unspecified; F41.9 Anxiety disorder, unspecified; J96.11 Chronic respiratory failure with hypoxia; R79.1 Abnormal coagulation profile; R07.9 Chest pain, unspecified; M25.561 Pain in right knee; Z53.29 Procedure and treatment not carried out because of patient's decision for other reasons; W18.30XA Fall on same level, unspecified, initial encounter; Z99.81 Dependence on supplemental oxygen; Z79.899 Other long term (current) drug therapy; Z95.2 Presence of prosthetic heart valve; Z79.01 Long term (current) use of anticoagulants; Z11.52 Encounter for screening for COVID-19
CPT/HCPCS: 0241U; 29505; 70450; 71045; 72125; 72128; 72170; 73562-LT; 73562-RT; 80053; 81001; 83880; 84484; 85025; 85610; 85730; 87086; 93005; 93010; 99284-25

== ENCOUNTER → 2023-03-17 | Outpatient (CLI) | payer OTHER ==
[2023-03-18 11:35] LABS: Candida species (DNA Probe) Negative (NEGATIVE); G. vaginalis (DNA Probe) Negative (NEGATIVE); T. vaginalis (DNA Probe) Negative (NEGATIVE)
== END ==
LOC: LAB SHORT 18:20 → LAB 18:20
PROVIDERS: Student in an Organized Health Care Education/Training Program
DX: N39.41 Urge incontinence (principal)
CPT/HCPCS: 87086; 87106; 87480; 87510; 87660

== ENCOUNTER 2023-04-23 18:21 | Emergency (ER) | payer OTHER ==
[~2023-04-23] VITALS: Ht 167.6 cm; Wt 108.9 kg
[2023-04-23 19:32] LABS: Source, Urine Clean Catch
[2023-04-23 19:52] LABS: Albumin, Blood 3.5 g/dL (3.4-5.0); Albumin/Globulin Ratio 0.7 (0.8-1.8); Bilirubin, Total 0.3 mg/dL (0.1-1.0); Bun/Creatinine Ratio 20.7 (12.0-20.0); Calcium, Blood 9.3 mg/dL (8.5-10.1); Creatinine, Blood 0.58 mg/dL (0.40-1.00); Globulin, Blood 5.2 g/dL (2.2-4.0); Total Protein, Blood 8.7 g/dL (6.4-8.2)
[2023-04-23 20:15] LABS: Appearance, Urine Clear (Clear); Bilirubin, Urine Neg (Neg); Blood, Urine Neg (Neg); Color, Urine Yellow (P-Yellow); Glucose Qualitative, Urine Neg (Neg); Ketones, Urine Neg (Neg); Leukocyte Esterase, Urine Neg (Neg); Nitrite, Urine Neg (Neg); Protein, Urine Neg (Neg); Urobilinogen, Urine NORM (Normal)
[2023-04-23 20:19] LABS: BASOPHILS ABSOLUTE AUTO 0.04 K/mm3 (0.00-0.23); BASOPHILS PERCENT AUTO 1 % (0-2); EOSINOPHILS ABSOLUTE AUTO 0.07 K/mm3 (0.00-0.68); EOSINOPHILS PERCENT AUTO 1 % (0-6); IMMATURE GRAN ABSOLUTE AUTO 0.04 K/mm3 (0.00-0.10); IMMATURE GRAN PERCENT AUTO 1 % (0-1); LYMPHOCYTES ABSOLUTE AUTO 1.69 K/mm3 (0.84-5.20); LYMPHOCYTES PERCENT AUTO 20 % (21-46); MONOCYTES ABSOLUTE AUTO 0.67 K/mm3 (0.16-1.47); MONOCYTES PERCENT AUTO 8 % (4-13); Mean Corpuscular HGB 29.1 pg (26.0-34.0); Mean Corpuscular HGB Conc 33.3 g/dL (31.5-36.5); Mean Corpuscular Volume 87 fL (80-100); Mean Platelet Volume 10.5 fL (9.1-12.4); NEUTROPHILS ABSOLUTE AUTO 5.93 K/mm3 (1.96-9.15); NEUTROPHILS PERCENT AUTO 70 % (41-73); Platelet Count 253 K/mm3 (150-400); RDW Coefficient Variation 13.4 % (11.7-14.2); Red Blood Cell Count 4.46 M/mm3 (3.80-5.20); White Blood Cell Count 8.44 K/mm3 (4.00-11.30)
[2023-04-23 20:30] VITALS: BP 119/71
[2023-04-23 20:44] LABS: International Normalized Ratio 1.97; Prothrombin Time Results 19.9 Sec (9.7-11.5)
== END 2023-04-23 21:00 | disposition home or self-care (01) ==
LOC: ER 18:21
PROVIDERS: Emergency Medicine
DX: E87.1 Hypo-osmolality and hyponatremia (principal); N30.10 Interstitial cystitis (chronic) without hematuria; I11.0 Hypertensive heart disease with heart failure; I50.9 Heart failure, unspecified; E11.9 Type 2 diabetes mellitus without complications; J44.9 Chronic obstructive pulmonary disease, unspecified; J96.11 Chronic respiratory failure with hypoxia; F17.290 Nicotine dependence, other tobacco product, uncomplicated; Z99.81 Dependence on supplemental oxygen; Z79.01 Long term (current) use of anticoagulants; Z79.899 Other long term (current) drug therapy
CPT/HCPCS: 71046; 80053; 81003; 84484; 85025; 85610; 93005; 93010; 99284-25

== ENCOUNTER 2023-05-19 07:03 | Emergency (ER) | payer OTHER ==
[~2023-05-19] VITALS: Ht 167.6 cm; Wt 112.0 kg
[2023-05-19] MEDS ORDERED: BUPRENORPHINE HC2 MG SL (07:29)
[2023-05-19] MEDS ORDERED: SUBOXONE 8 MG-1 EACH SL (07:29)
[2023-05-19 08:52] LABS: Source, Urine Clean Catch
[2023-05-19 08:55] LABS: Appearance, Urine Clear (Clear); Bilirubin, Urine Neg (Neg); Blood, Urine Neg (Neg); Color, Urine Yellow (P-Yellow); Glucose Qualitative, Urine Neg (Neg); Ketones, Urine Neg (Neg); Leukocyte Esterase, Urine Neg (Neg); Nitrite, Urine Neg (Neg); Protein, Urine Neg (Neg); Specific Gravity, Urine 1.015 (1.003-1.022); Urobilinogen, Urine NORM (Normal)
[2023-05-19 09:13] LABS: BASOPHILS ABSOLUTE AUTO 0.04 K/mm3 (0.00-0.23); BASOPHILS PERCENT AUTO 0 % (0-2); EOSINOPHILS ABSOLUTE AUTO 0.04 K/mm3 (0.00-0.68); EOSINOPHILS PERCENT AUTO 0 % (0-6); Hematocrit 36.3 % (33.0-51.0); Hemoglobin 12.2 g/dL (11.5-16.0); IMMATURE GRAN ABSOLUTE AUTO 0.07 K/mm3 (0.00-0.10); IMMATURE GRAN PERCENT AUTO 0 % (0-1); LYMPHOCYTES ABSOLUTE AUTO 0.88 K/mm3 (0.84-5.20); LYMPHOCYTES PERCENT AUTO 6 % (21-46); MONOCYTES ABSOLUTE AUTO 0.68 K/mm3 (0.16-1.47); MONOCYTES PERCENT AUTO 4 % (4-13); Mean Corpuscular HGB 29.5 pg (26.0-34.0); Mean Corpuscular HGB Conc 33.6 g/dL (31.5-36.5); Mean Corpuscular Volume 88 fL (80-100); NEUTROPHILS ABSOLUTE AUTO 14.08 K/mm3 (1.96-9.15); NEUTROPHILS PERCENT AUTO 89 % (41-73); Platelet Count 203 K/mm3 (150-400); RDW Coefficient Variation 14.3 % (11.7-14.2); RDW Standard Deviation 45.7 fL (35.1-46.3); Red Blood Cell Count 4.13 M/mm3 (3.80-5.20); White Blood Cell Count 15.79 K/mm3 (4.00-11.30)
[2023-05-19 09:28] LABS: Albumin, Blood 3.1 g/dL (3.4-5.0); Albumin/Globulin Ratio 0.7 (0.8-1.8); Bilirubin, Total 0.6 mg/dL (0.1-1.0); Bun/Creatinine Ratio 12.9 (12.0-20.0); Calcium, Blood 8.7 mg/dL (8.5-10.1); Creatinine, Blood 0.47 mg/dL (0.40-1.00); Globulin, Blood 4.7 g/dL (2.2-4.0); Potassium, Blood 3.5 mmol/L (3.5-5.5); Total Protein, Blood 7.8 g/dL (6.4-8.2)
[2023-05-19 09:34] LABS: Influenza A, PCR NEGATIVE (NEGATIVE); Influenza B, PCR NEGATIVE (NEGATIVE); Resp Syncytial Virus, PCR NEGATIVE (NEGATIVE); SARS-Cov-2 (COVID-19) PCR, MMC NEGATIVE (NEGATIVE)
[2023-05-19 10:03] VITALS: BP 120/71
== END 2023-05-19 10:23 | disposition left against medical advice (07) ==
LOC: ER 07:03
PROVIDERS: Emergency Medicine
DX: L08.9 Local infection of the skin and subcutaneous tissue, unspecified (principal); I50.9 Heart failure, unspecified; E11.9 Type 2 diabetes mellitus without complications; F17.290 Nicotine dependence, other tobacco product, uncomplicated; Z91.030 Bee allergy status; Z79.01 Long term (current) use of anticoagulants; Z79.899 Other long term (current) drug therapy; Z53.21 Procedure and treatment not carried out due to patient leaving prior to being seen by health care provider
CPT/HCPCS: 0241U; 73630; 80053; 81003; 85025; 96361; 96365; 99281; 99285-25; J0690; J7030

== ENCOUNTER 2023-05-19 16:31 | Emergency (ER) | payer OTHER ==
[~2023-05-19] VITALS: Ht 167.6 cm; Wt 63.5 kg
[~2023-05-19 16:31] MED LIST changes: +BUPRENORPHINE HC2 MG SL; +SUBOXONE 8 MG-1 EACH SL
[2023-05-19 16:41] VITALS: BP 136/89
== END 2023-05-19 17:19 | disposition left against medical advice (07) ==
LOC: ER 16:31
DX: L08.9 Local infection of the skin and subcutaneous tissue, unspecified (principal); Z53.21 Procedure and treatment not carried out due to patient leaving prior to being seen by health care provider
CPT/HCPCS: 99281

== ENCOUNTER 2023-05-20 10:32 | Inpatient (IN) | payer OTHER ==
[~2023-05-20] VITALS: Ht 167.6 cm; Wt 113.4 kg
[2023-05-20 11:10] LABS: BASOPHILS ABSOLUTE AUTO 0.03 K/mm3 (0.00-0.23); BASOPHILS PERCENT AUTO 0 % (0-2); EOSINOPHILS ABSOLUTE AUTO 0.19 K/mm3 (0.00-0.68); EOSINOPHILS PERCENT AUTO 2 % (0-6); Hematocrit 36.4 % (33.0-51.0); Hemoglobin 11.7 g/dL (11.5-16.0); IMMATURE GRAN ABSOLUTE AUTO 0.05 K/mm3 (0.00-0.10); IMMATURE GRAN PERCENT AUTO 1 % (0-1); LYMPHOCYTES ABSOLUTE AUTO 1.01 K/mm3 (0.84-5.20); LYMPHOCYTES PERCENT AUTO 9 % (21-46); MONOCYTES ABSOLUTE AUTO 0.59 K/mm3 (0.16-1.47); MONOCYTES PERCENT AUTO 5 % (4-13); Mean Corpuscular HGB 28.6 pg (26.0-34.0); Mean Corpuscular HGB Conc 32.1 g/dL (31.5-36.5); Mean Corpuscular Volume 89 fL (80-100); Mean Platelet Volume 10.3 fL (9.1-12.4); NEUTROPHILS ABSOLUTE AUTO 8.99 K/mm3 (1.96-9.15); NEUTROPHILS PERCENT AUTO 83 % (41-73); Platelet Count 198 K/mm3 (150-400); RDW Coefficient Variation 14.1 % (11.7-14.2); RDW Standard Deviation 45.6 fL (35.1-46.3); Red Blood Cell Count 4.09 M/mm3 (3.80-5.20); White Blood Cell Count 10.86 K/mm3 (4.00-11.30)
[2023-05-20 14:48] LABS: Albumin/Globulin Ratio 0.6 (0.8-1.8); Bilirubin, Total 0.5 mg/dL (0.1-1.0); Bun/Creatinine Ratio 10.8 (12.0-20.0); Calcium, Blood 8.7 mg/dL (8.5-10.1); Creatinine, Blood 0.47 mg/dL (0.40-1.00); Globulin, Blood 4.9 g/dL (2.2-4.0); Potassium, Blood 3.3 mmol/L (3.5-5.5); Total Protein, Blood 7.9 g/dL (6.4-8.2)
[2023-05-20 15:15] VITALS: BP 107/58
[2023-05-20 15:27] LABS: Prothrombin Time Results 41.9 Sec (9.7-11.5)
[2023-05-20 15:37] LABS: International Normalized Ratio 4.34
[2023-05-20 15:55] VITALS: BP 101/54
--- NOTE | 2023-05-20 17:33 | NUR ---
PATIENT ADMIT TO PCU 13. ABLE TO STAND AND PICOT TO BED. ALERT AND ORIENTED X4. FORGETFUL AT TIMES. PERRLA, WEARING GLASSES. DENIES N/T. RIGHT FOOT INJURY DUE TO FALL AT HOME. SEE CHART PHOTOS. RIGHT FOOT ELEVATED ON PILLOWS. MEDICATED PER EMAR FOR PAIN. HOME MEDICATIONS LOCKED IN DRAWER. MED REC COMPLETED THIS PATIENT. ON 3L NASAL CANNULA SATING MID 90'S. PATIENT STATES SHE OCCASIONALLY WEARS 3L NASAL CANNULA AT HOME, AND HAS A CPAP BUT HAS NOT WORN THE CPAP IN YEARS. LUNGS SOUNDING CLEAR AND DIM IN BASES. DENIES SOB/COUGH. EVEN AND UNLABORED RESPIRATIONS. TELE SHOWING SR WITH HR 60-70'S. DENIES CHEST PAIN/PRESSURE/PALPITATIONS. SBP 100'S. PPP. EDEMA NOTED IN RIGHT FOOT DUE TO INJURY. HISTORY OF HEART VALVE SURGERY, ON PO WARFARIN. WARFARIN PHARM CONSULT IN PLACE. IV FLUIDS INFUSING PER EMAR. DENIES ABDOMINAL PAIN/NAUSEA. REG DIET ORDERS IN PLACE PER DR. REID WITH [facility] BLOOD SUAGR CHECKS. PATIENT STATES SHE HAS HISTORY OF CONSTIPATION BUT RECENLTY HAS BEEN HAVING REGULAR BOWEL MOVEMENTS. UP TO BSC WITH SBA. EATING AND DRINKING WNL. FULL DENTURES IN PLACE. SKIN OVERALL C/D/I BESIDES RIGHT FOOT INJURY FROM RECENT FALL AT HOME. RIGHT FOOT BLOOD BLISTER WITH BRUISING, REDNESS, SWELLING AND SLIGHTLY WARM. SEE PHOTOS IN CHART. PATIENT STATES SHE HAS CAREGIVERS THAT COME FOR 4 HOURS PER DAY [address] REID CALLED AFTER ADMIT AND THIS RN REVIEWED CT OF FOOT, NICOTINE PATCH, K AND INR LAB RESULTS AND DIET. DR. REID TO PLACE ORDERS. CALL LIGHT IN REACH. PATIENT ORIENTED TO ROOM/UNIT. PATIENT DENIES HAVING ANY IGNITION SOURCES. PATIENT VAPES EVERYDAY, NICOTINE PATCH TO LEFT SHOULDER.
[2023-05-20 19:55] VITALS: BP 104/69
[2023-05-20 23:03] VITALS: BP 122/70
[2023-05-21 03:22] VITALS: BP 101/58
--- NOTE | 2023-05-21 04:35 | NUR ---
SHIFT SUMMARY NO ACUTE CHANGES OVERNIGHT. PT A&O X4, OCCASIONALLY FORGETFUL. CALLING APPROPRIATELY. BP STABLE. SR WITH HR 60'S. ON 3L VIA NC WITH SPO2 >92%. AFEBRILE. PT SBA TO BSC. RT FOOT CONTINUES TO BE MORE PAINFUL WHEN NOT ELEVATED. MEDICATING PER EMAR FOR PAIN. ELEVATED RLE WHEN IN BED. BED IN LOWEST POSITION AND CALL LIGHT WITHIN REACH. THIS RN WILL REPORT TO ONCOMING MER NOLEN.
[2023-05-21 05:27] LABS: BASOPHILS ABSOLUTE AUTO 0.01 K/mm3 (0.00-0.23); BASOPHILS PERCENT AUTO 0 % (0-2); EOSINOPHILS ABSOLUTE AUTO 0.13 K/mm3 (0.00-0.68); EOSINOPHILS PERCENT AUTO 3 % (0-6); Hematocrit 32.3 % (33.0-51.0); Hemoglobin 10.2 g/dL (11.5-16.0); IMMATURE GRAN ABSOLUTE AUTO 0.03 K/mm3 (0.00-0.10); IMMATURE GRAN PERCENT AUTO 1 % (0-1); LYMPHOCYTES PERCENT AUTO 17 % (21-46); MONOCYTES ABSOLUTE AUTO 0.38 K/mm3 (0.16-1.47); MONOCYTES PERCENT AUTO 7 % (4-13); Mean Corpuscular HGB 28.4 pg (26.0-34.0); Mean Corpuscular HGB Conc 31.6 g/dL (31.5-36.5); Mean Corpuscular Volume 90 fL (80-100); Mean Platelet Volume 10.4 fL (9.1-12.4); NEUTROPHILS PERCENT AUTO 72 % (41-73); Platelet Count 159 K/mm3 (150-400); RDW Coefficient Variation 14.3 % (11.7-14.2); Red Blood Cell Count 3.59 M/mm3 (3.80-5.20); White Blood Cell Count 5.25 K/mm3 (4.00-11.30)
[2023-05-21 05:41] LABS: International Normalized Ratio 3.3; Prothrombin Time Results 32.4 Sec (9.7-11.5)
[2023-05-21 06:09] LABS: Bun/Creatinine Ratio 10.3 (12.0-20.0); Calcium, Blood 8.5 mg/dL (8.5-10.1); Creatinine, Blood 0.39 mg/dL (0.40-1.00); Potassium, Blood 3.2 mmol/L (3.5-5.5)
[2023-05-21 07:36] VITALS: BP 127/68
[2023-05-21 12:20] VITALS: BP 120/74
--- NOTE | 2023-05-21 13:39 | NUR ---
PODIATRY CONSULT THIS RN ATTEMPTED TO CALL IN PODIATRY CONSULT. 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 CALLED TO BE NOTIFIED, THIS RN LEFT MESSAGE THAT UNABLE TO CALL IN CONSULT FOR TODAY AND TO RETURN CALL TO THIS RN.
--- NOTE | 2023-05-21 14:02 | NUR ---
AMA- Pt states that she wants to leave AMA but that she doesn't have a ride home. States that she has ride benefits. Notified care management and phone number was given to patient for her to arrainge a ride since she is leaving AMA. Pt was very agitated and states "If you want to help me, you should arrange a ride". Handed patient the phone and told her that we do not assist with helping a paitent leave when we do not feel they are safe to leave and are doing so against medical advice. Pt was provided w/c and left.
--- NOTE | 2023-05-21 14:10 | NUR ---
AT APPROX 1345 THIS RN TO BEDSIDE TO ROUND ON PT. PT REPORTS 8/10 PAIN TO R FOOT AND IS REQUESTING DOSE OF FENTANYL. PT NOTIFIED THAT PER ORDER PARAMETERS PT WAS NOT YET DUE FOR ANOTHER DOSE OF FENTANYL FOR 18 MORE MINUTES BUT THIS RN COULD CALL PHARMACY AND REQUEST A DOSE OF PTS PRN SUBOXONE. PT REFUSED PRN SUBOXONE DOSE AND REQUESTED TO LEAVE AMA. THIS RN EDUCATED PT ON RISKS AND BENIFITS IF PT WERE TO LEAVE AMA PT PERSISTING TO LEAVE. THIS RN LEFT ROOM TO NOTIFY AND CHARGE NURSE. CALL MADE TO AND MESSAGE LEFT. WHEN THIS RN RETURNED TO PT ROOM, PT HAD TAKEN OFF TELE AND SPO2 MONITOR AND BEGAN REQUESTING A RIDE HOME THAT PT WAS READY TO LEAVE. AMA FOR EXPLAINED TO PT AND SIGNATURE OBTAINED. PT GIVEN PHONE NUMBER TO [place] [employer] TO REQUEST RIDE HOME WITH INSURANCE BENEFITS, PT DECLINED. PT GIVEN AT HOME MEDICATIONS AND BELONGINGS. PT WHEELED OUT OF UNIT VIA WHEELCHAIR BY CESAR BREWER.
--- NOTE | 2023-05-21 14:30 | NUR ---
discharge: Physician was notified of patient leaving AMA. Discharge order placed after patient left so that patient could recieve antibiotics. Rx for antibiotics was sent to [facility] pharmacy.
[2023-05-23 20:18] LABS: CK TOTAL 39 U/L (26-192); CK-BB 0 % (0-0); CK-MACRO TYPE I 0 % (0-0); CK-MACRO TYPE II 0 % (0-0); CK-MB 0 % (0-4); CK-MM 100 % (96-100)
== END 2023-05-21 14:05 | disposition left against medical advice (07) | DRG 603 ==
LOC: ER 10:32 → PCU 14:10
PROVIDERS: Physician Assistant; ADMIT Internal Medicine
DX: L08.9 Local infection of the skin and subcutaneous tissue, unspecified (principal); I50.32 Chronic diastolic (congestive) heart failure; E87.1 Hypo-osmolality and hyponatremia; J96.11 Chronic respiratory failure with hypoxia; I11.0 Hypertensive heart disease with heart failure; F17.210 Nicotine dependence, cigarettes, uncomplicated; E11.9 Type 2 diabetes mellitus without complications; J44.9 Chronic obstructive pulmonary disease, unspecified; F31.9 Bipolar disorder, unspecified; F17.290 Nicotine dependence, other tobacco product, uncomplicated; F41.9 Anxiety disorder, unspecified; Z95.2 Presence of prosthetic heart valve; Z79.01 Long term (current) use of anticoagulants; Z99.81 Dependence on supplemental oxygen; Z87.11 Personal history of peptic ulcer disease; Z87.19 Personal history of other diseases of the digestive system
CPT/HCPCS: 36415; 73701; 80048; 80053; 82550; 82552; 82947; 83605; 83880; 85025; 85610; 85651; 85730; 86140; 94760; 94762; 96361; 96374-59; 99284-25; A9270; J0572; J2543; J3010; J3370; J7030; J7050; Q9967

== ENCOUNTER 2023-06-01 18:48 | Emergency (ER) | payer OTHER ==
[~2023-06-01] VITALS: Ht 167.6 cm; Wt 108.9 kg
[2023-06-01] MEDS ORDERED: Diazepam 5 MG / ML 2ML SYR IV ONE (19:15)
[2023-06-01 19:52] LABS: BASOPHILS ABSOLUTE AUTO 0.02 K/mm3 (0.00-0.23); BASOPHILS PERCENT AUTO 0 % (0-2); EOSINOPHILS ABSOLUTE AUTO 0.11 K/mm3 (0.00-0.68); EOSINOPHILS PERCENT AUTO 1 % (0-6); Hematocrit 38.1 % (33.0-51.0); Hemoglobin 12.2 g/dL (11.5-16.0); IMMATURE GRAN ABSOLUTE AUTO 0.03 K/mm3 (0.00-0.10); IMMATURE GRAN PERCENT AUTO 0 % (0-1); LYMPHOCYTES ABSOLUTE AUTO 0.74 K/mm3 (0.84-5.20); LYMPHOCYTES PERCENT AUTO 8 % (21-46); MONOCYTES PERCENT AUTO 4 % (4-13); Mean Corpuscular HGB 29.3 pg (26.0-34.0); Mean Corpuscular Volume 91 fL (80-100); Mean Platelet Volume 10.7 fL (9.1-12.4); NEUTROPHILS ABSOLUTE AUTO 7.82 K/mm3 (1.96-9.15); NEUTROPHILS PERCENT AUTO 86 % (41-73); Platelet Count 230 K/mm3 (150-400); RDW Coefficient Variation 15.5 % (11.7-14.2); RDW Standard Deviation 51.3 fL (35.1-46.3); Red Blood Cell Count 4.17 M/mm3 (3.80-5.20); White Blood Cell Count 9.12 K/mm3 (4.00-11.30)
[2023-06-01 20:01] LABS: Calcium, Blood 8.7 mg/dL (8.5-10.1); Creatinine, Blood 0.58 mg/dL (0.40-1.00); Potassium, Blood 3.3 mmol/L (3.5-5.5)
[2023-06-01] MEDS ORDERED: Potassium Chloride 20 MEQ TabCR PO ONE (21:00)
[2023-06-01 21:45] VITALS: BP 122/82
== END 2023-06-01 21:53 | disposition home or self-care (01) ==
LOC: ER 18:48
PROVIDERS: Emergency Medicine
DX: G25.3 Myoclonus (principal); E87.6 Hypokalemia; I50.9 Heart failure, unspecified; E11.9 Type 2 diabetes mellitus without complications; J44.9 Chronic obstructive pulmonary disease, unspecified; F17.290 Nicotine dependence, other tobacco product, uncomplicated; Z79.01 Long term (current) use of anticoagulants; Z79.899 Other long term (current) drug therapy; Z91.030 Bee allergy status
CPT/HCPCS: 80048; 83735; 85025; 96374; 99283-25; A9270; J3360

== ENCOUNTER 2023-06-08 11:52 | Inpatient (IN) | payer OTHER ==
[~2023-06-08] VITALS: Ht 167.6 cm; Wt 108.6 kg
[2023-06-08] MEDS ORDERED: Ondansetron HCl 2 MG / ML 2ML Vial IV ONE (12:40)
[2023-06-08] MEDS ORDERED: HYDROmorphone HCl/Pf 1MG SYR IV ONE (12:40)
[2023-06-08 13:36] LABS: Influenza A, PCR NEGATIVE (NEGATIVE); Influenza B, PCR NEGATIVE (NEGATIVE); Resp Syncytial Virus, PCR NEGATIVE (NEGATIVE); SARS-Cov-2 (COVID-19) PCR, MMC NEGATIVE (NEGATIVE)
[2023-06-08] MEDS ORDERED: Propofol 10mg/ml 20 ml Vial (Procedural) IV SCH (13:45)
[2023-06-08] MEDS ORDERED: NS 1,000 ML IV ONE (13:51)
[2023-06-08] MEDS ORDERED: Ketamine HCL 10 MG/ML 5ML SYR IV ONE (13:55)
[2023-06-08 16:06] LABS: BASOPHILS ABSOLUTE AUTO 0.02 K/mm3 (0.00-0.23); BASOPHILS PERCENT AUTO 0 % (0-2); EOSINOPHILS PERCENT AUTO 2 % (0-6); Hematocrit 37.2 % (33.0-51.0); Hemoglobin 11.9 g/dL (11.5-16.0); IMMATURE GRAN ABSOLUTE AUTO 0.05 K/mm3 (0.00-0.10); IMMATURE GRAN PERCENT AUTO 1 % (0-1); LYMPHOCYTES ABSOLUTE AUTO 1.28 K/mm3 (0.84-5.20); LYMPHOCYTES PERCENT AUTO 19 % (21-46); MONOCYTES ABSOLUTE AUTO 0.44 K/mm3 (0.16-1.47); MONOCYTES PERCENT AUTO 7 % (4-13); Mean Corpuscular HGB 29.4 pg (26.0-34.0); Mean Corpuscular Volume 92 fL (80-100); Mean Platelet Volume 10.5 fL (9.1-12.4); NEUTROPHILS ABSOLUTE AUTO 4.87 K/mm3 (1.96-9.15); NEUTROPHILS PERCENT AUTO 72 % (41-73); Platelet Count 241 K/mm3 (150-400); RDW Coefficient Variation 15.8 % (11.7-14.2); RDW Standard Deviation 52.3 fL (35.1-46.3); Red Blood Cell Count 4.05 M/mm3 (3.80-5.20); White Blood Cell Count 6.76 K/mm3 (4.00-11.30)
[2023-06-08] MEDS ORDERED: Acetaminophen 325 MG TABLET PO PRN (16:30)
[2023-06-08] MEDS ORDERED: FLU VACC QS2023-24(6MOS UP)/PF 60 MCG/0.5 ML SYRINGE IM PRN (16:30)
[2023-06-08 16:35] LABS: Albumin, Blood 3.1 g/dL (3.4-5.0); Albumin/Globulin Ratio 0.6 (0.8-1.8); Bilirubin, Total 0.4 mg/dL (0.1-1.0); Bun/Creatinine Ratio 21.4 (12.0-20.0); Calcium, Blood 8.9 mg/dL (8.5-10.1); Creatinine, Blood 0.51 mg/dL (0.40-1.00); Globulin, Blood 4.8 g/dL (2.2-4.0); Potassium, Blood 4.6 mmol/L (3.5-5.5); Total Protein, Blood 7.9 g/dL (6.4-8.2)
[2023-06-08] MEDS ORDERED: Buprenorphine HCL/Naloxone HCL 2-0.5MG 1 EA SL SCH (17:00)
[2023-06-08 17:03] LABS: Prothrombin Time Results 72.7 Sec (9.7-11.5)
[2023-06-08 17:05] LABS: International Normalized Ratio 7.78
[2023-06-08] MEDS ORDERED: ACETAMINOPHEN500 M2 PO (17:41)
[2023-06-08] MEDS ORDERED: ACYC400 PO (17:42)
[2023-06-08] MEDS ORDERED: ALBU3IS INH (17:43)
[2023-06-08] MEDS ORDERED: BUPRENORPHN-NA1 EACH SL (17:44)
[2023-06-08] MEDS ORDERED: Metoprolol Tartrate 50 MG Tab PO SCH (17:45)
[2023-06-08] MEDS ORDERED: CARB200 PO (17:45)
[2023-06-08] MEDS ORDERED: Gabapentin 300 MG Cap PO PRN (17:45)
[2023-06-08] MEDS ORDERED: Albuterol 2.5 MG/3 ML VIAL INH PRN (17:45)
[2023-06-08] MEDS ORDERED: FLUOXETINE HCL20 M1 PO (17:46)
[2023-06-08] MEDS ORDERED: GABA300 PO (17:47)
[2023-06-08] MEDS ORDERED: METO100 PO (17:48)
[2023-06-08] MEDS ORDERED: QUETIAPINE FUM400 M2 PO (17:49)
[2023-06-08] MEDS ORDERED: BACTRIM DS TAB1 EAC1 PO (17:50)
[2023-06-08] MEDS ORDERED: Phytonadione 5 MG Tab PO ONE (18:00)
[2023-06-08 18:21] VITALS: BP 130/68
[2023-06-08] MEDS ORDERED: Buprenorphine HCL/Naloxone HCL 2-0.5MG 1 EA SL PRN (18:40)
[2023-06-08] MEDS ORDERED: Nicotine 21 MG PATCH TOP SCH (19:00)
[2023-06-08 19:19] VITALS: BP 131/84
[2023-06-08 19:45] VITALS: BP 117/84
--- NOTE | 2023-06-08 20:03 | NUR ---
SHIFT SUMMARY PT A&OX4, VSS/3LNC, BENNY PO, PAIN TREATED PER EMAR, PLAN FOR NPO MIDNIGHT FOR ORIF R ANKLE. REPORT TO TABITHA NOLEN.
[2023-06-08] MEDS ORDERED: QUEtiapine Fumarate 200 MG Tab PO SCH (21:00)
[2023-06-08] MEDS ORDERED: CarBAMazepine 200 MG Tab PO SCH (21:00)
[2023-06-08] MEDS ORDERED: Acyclovir 400 MG Tab PO SCH (21:00)
[2023-06-08] MEDS ORDERED: HYDROmorphone HCl/Pf 1MG SYR IV PRN (23:55)
--- NOTE | 2023-06-08 23:55 | NUR ---
PT C/O UNRELIEVED PAIN USING CURRENT MEDS.PT TAKES SUBOXONE BASELINE AND REPORTS HX ANXIETY WELL.PT WITH CRITICALLY HIGH INR ON ADMIT AND WAS GIVEN PO VIT K.I REVIEWED ORDERS,LABS AND EMAR AND MEDS GIVEN WITH PHARMACIST ALDO COBIAN AND DR FOSS AND RECEIVED ORDERS
[2023-06-09] VITALS (24 sets, daily range): BP systolic 114–167; BP diastolic 59–85
[2023-06-09 00:36] LABS: Prothrombin Time Results 47.6 Sec (9.7-11.5)
[2023-06-09 00:37] LABS: International Normalized Ratio 4.96
[2023-06-09] MEDS ORDERED: Phytonadione 5 MG in NS 50 ML IV ONE (01:50)
[2023-06-09] MEDS ORDERED: Ketorolac Tromethamine 15mg Vial IV ONE (01:50)
--- NOTE | 2023-06-09 01:54 | NUR ---
PT WAS GIVEN TOTAL OF 2 MG DILAUDID AND REPORTS TO HER NURSE PAIN IS "A LITTLE BETTER" BUT STILL RATES AT 10, INR FOLLOW UP BACK AT 4.96.PHONE CALL TO DR FOSS AND NEW ORDERS RECEIVED.
[2023-06-09] MEDS ORDERED: NS 250 ML IV PRN (02:35)
[2023-06-09] MEDS ORDERED: HYDROmorphone HCl/Pf 1MG SYR IV PRN ×2 (04:55→14:05)
--- NOTE | 2023-06-09 05:31 | NUR ---
DR FOSS TO PT BEDSIDE.PT RECENTLY RECEIVED DILAUDID 2 MG IV IS REQUESTING OF DR FOSS TO GIVE HER MORE.DR AWARE OF RECENT DOSE GIVEN.PT TOLD DOCTOR THAT SHE TAKES BUPRINORPHINE AT HOME AND HAS A "HIGH TOLERANCE" TO MEDICATIONS. DR FOSS CHECKED PTS RLE AND GAVE ORDER FOR ADDITIONAL 2 MG IV DILAUDID NOW PENDING ARRIVAL OF DR HEALY.PEDAL PULSE CONT PALPABLE AND PT ABLE TO WIGGLE TOES SLOWLY.HOWEVER,PT REPORTS TO DR FOSS THAT SHE HAS SOME TINGLING TO BOTTOM OF R TOES.PT FI ADVISED PTS RN AND NURSING BOTTOMING ROOM SUPERVISOR TOBY LAUGHLIN RN OF ABOVE.
[2023-06-09] MEDS ORDERED: HYDROmorphone HCl/Pf 1MG SYR IV ONE (05:35)
[2023-06-09] MEDS ORDERED: Ketorolac Tromethamine 30mg Vial IV PRN ×2 (06:35→07:10)
[2023-06-09 07:50] LABS: International Normalized Ratio 2.07
[2023-06-09 08:05] LABS: Prothrombin Time Results 20.9 Sec (9.7-11.5)
--- NOTE | 2023-06-09 08:37 | NUR ---
during bedside report patient was not wearing oxygen, when noc and this rn asked her to place oxygen she stated "Ill wear it when you give me pain medication." told her I will bring them as soon as I am able to pull them. she stated "then I will put oxygen in when you are back" sats remained 88% or higher. pt also demanded we remove the splint on her r leg because it was rubbing on her leg and had caused a blister. at 0800 when attempting to medicate patient for pain she had pulled her iv out of her hand. she did replace oxygen once buprenorphine administered. sats 98%. she also stated that "they" had come in earlier and removed her splint. I reminded her that I was the nurse that was in earlier. she stated "oh thats right." splint remains up on pillows as placed by dr. ross. educated patient on importance of keeping her foot in that position to help with pain. attempting to place iv at this time. pt reports slight relief with buprenorphine.
--- NOTE | 2023-06-09 08:44 | NUR ---
SHIFT SUMMARY NOC. PT A/O X4. PT REPORTS 10/10 PAIN THROUGHOUT SHIFT IN RIGHT ANKLE. PROVIDED EDUCATION MULTIPLE TIMES REGARDING ICE AND ELEVATION. PT EDUCATED ON RISKS OF INCREASED SWELLING AND PAIN RISK WITHOUT THESE INTERVENTIONS. PT REFUSED. PT ALSO REFUSED BEDPAN AND ATTENDS FOR VOIDING. PT USED BEDSIDE COMMODE FOR VOIDING AND KEPT ALL WT BEARING ON LLE AND KEPT WT OFF RLE WITH 2 STAFF MEMBERS. NEW ORDERS RECEIVED MULTIPLE TIMES IN ATTEMPT TO CONTROL PAIN, PLEASE SEE CHARGE NURSE NOTES. NURSING TELEGRAPHIC TYPEWRITER INSTALLER SPOKE WITH PT AT 0215 PT STATED "I'M GOING TO RIP OFF THE CAST". PT ALSO REPORTED TO NURSING TELEGRAPHIC TYPEWRITER INSTALLER THAT THIS NURSE HAS "NOT BEEN GIVING MY MEDS" PLEASE SEE MAR FOR MEDICATIONS GIVEN. [employer] CLERK ORTHOPEDIC PROVIDER SERVICE CALLED AT 0334 DUE TO PT COMPLAINING OF NEW INCREASING PAIN FROM "RIGHT ANKLE TO RIGHT HIP". PREVIOUS REPORT OF PAIN LOCALIZED TO R ANKLE PRIOR TO THIS REPORT FROM PT. PULSES, CAP REFILL, AND MOVEMENT INTACT AT TIME. NEW ORDERS RECEIVED FOR STAT CT. PER DR. MCKENZIE OPEN SPLINT TO SKIN PRIOR TO CT. PT REPORTED NO RELIEF WITH SPLINT OPENING. PT CRIES OUT IN PAIN FREQUENTLY AND UTILIZES CALL LIGHT FREQUENTLY. PT IN BED WITH CALL LIGHT IN REACH.
[2023-06-09] MEDS ORDERED: FLUoxetine HCL 20 MG CAP PO SCH (09:00)
[2023-06-09] MEDS ORDERED: QUEtiapine Fumarate 200 MG Tab PO SCH (09:00)
[2023-06-09] MEDS ORDERED: Lactated Ringer's 1,000 ML IV SCH (12:05)
[2023-06-09] MEDS ORDERED: propofoL 20 ML IV ONE (12:17)
[2023-06-09] MEDS ORDERED: Lidocaine HCl 2% 20 ML MDV ONE (12:17)
[2023-06-09] MEDS ORDERED: FentaNYL Citrate 50 MCG/ML 2 ML Injection ONE (12:18)
--- NOTE | 2023-06-09 12:22 | NUR ---
PT HAS A POWERGLIDE TO RIGHT UPPER ARM THAT FLUSHES WELL AND FLOWS TO GRAVITY.
--- NOTE | 2023-06-09 12:22 | NUR ---
PT BROUGHT TO DAY SURGERY FOR PROCEDURE. PT ON 4L SUPPLEMENTAL O2 VIA NC. PT REPORTS 10/10 ACHING PAIN TO RIGHT ANKLE. ANKLE PROPPED UP ON PILLOW FOR COMFORT.
[2023-06-09] MEDS ORDERED: CeFAZolin Sodium 2,000 MG in NS 50 ML IV SCH (12:30)
[2023-06-09] MEDS ORDERED: Midazolam HCl 1MG / ML 2ML Vial IV ONE (12:40)
--- NOTE | 2023-06-09 12:49 | NUR ---
DR ARMAS HERE TO DO NERVE BLOCK, AND ANSWER QUESTIONS
[2023-06-09] MEDS ORDERED: Dexamethasone Sod Phos 10 MG/ML 1ML VIAL ONE ×3 (12:51→13:45)
[2023-06-09] MEDS ORDERED: Midazolam HCl 1MG / ML 2ML Vial ONE (12:51)
[2023-06-09] MEDS ORDERED: Bupivacaine 0.5% HCl 5 MG/ML 30MLVIAL ONE (12:51)
[2023-06-09] MEDS ORDERED: EpiNEPhrine 1 MG/1 ML 1ML Vial ONE (12:51)
--- NOTE | 2023-06-09 12:59 | NUR ---
VERSED 2MG IVP GIVEN BY DR LI, TIME OUT PREFORMED BY AND RN
[2023-06-09] MEDS ORDERED: Rocuronium Bromide 10 MG/ML 5ML Injection IV ONE (13:29)
[2023-06-09] MEDS ORDERED: Lidocaine HCl 2% Jelly 120MG/6ML SYR (20MG PER ML) ONE (13:30)
[2023-06-09] MEDS ORDERED: Ondansetron HCl 2 MG / ML 2ML Vial ONE (13:45)
[2023-06-09] MEDS ORDERED: Ondansetron HCl 2 MG / ML 2ML Vial IV PRN (14:05)
[2023-06-09] MEDS ORDERED: FentaNYL Citrate 50 MCG/ML 2 ML Injection IV PRN ×2 (14:05)
[2023-06-09] MEDS ORDERED: Sugammadex Sodium 200 MG/2ML SDV (100 MG/ML) ONE (14:23)
[2023-06-09] MEDS ORDERED: Vancomycin HCL 1,000 MG in NS 100 ML IV SCH (15:00)
[2023-06-09] MEDS ORDERED: Albuterol 2.5 MG/3 ML VIAL INH ONE (15:00)
[2023-06-09] MEDS ORDERED: Albuterol 2.5 MG/3 ML VIAL ONE (15:09)
--- NOTE | 2023-06-09 17:54 | NUR ---
SHIFT SUMMARY S/P EXTERNAL FIXATION OF R ANKLE PT HAS REPORTED NO SENSATION TO RLE SINCE BLOCKS PLACED SHE STATED THAT HER PAIN WAS IMPROVED. DRESSING TO RLE CDI, PT HAS BEEN ASLEEP SINCE ARRIVAL TO UNIT. WILL WAKE UP AT TIME AND ATTEMPT TO REMOVE OXYGEN. DESATS TO 83% OR LOWER. EDUCATED PATIENT ON IMPORTANCE OF KEEPING OXYGEN IN, SHE STATED 83% IS "GOOD FOR HER". OXYGEN PLACED BACK ON, CONTINOUS BIOX IN PLACE. AT 1800 PT ATTEMPTED TO GET OUT OF BED WAS FOUND SITTING UP AT THE EDGE OF THE BED, STATING SHE WANTED TO GO. OXYGEN WAS OUT OF HER NOSE AND PT PULLED HER POWERGLIDE OUT. PRESSURE APPLIED AND DRESSING APPLIED. NO BLEEDING NOTED. GOT PATIENT BACK IN TO BED. BED ALARM PLACED ON. PT STATED SHE KNOWS SHE IS AT THE HOSPITAL AND KNOWS SHE HAD SURGERY. STATED UNDERSTANDING OF MAINTAINING NON WEIGHTBEARING STATUS ON R LEG. DRESSING TO RIGHT LEG APPEARS CDI STILL. SHE DENIES PAIN IN LEG BUT REPORTS SOME ABDOMINAL PAIN TO HER HERNIA WHILE COUGHING. INC OF BLADDER AT THIS TIME. PLACED ON BED NAIR.
[2023-06-09 18:01] LABS: International Normalized Ratio 1.36
[2023-06-10 02:53] VITALS: BP 125/82
[2023-06-10 03:15] LABS: U Amphetamine Screen Not Detected; U Barbituate Screen Not Detected; U Benzodiazapine Screen DETECTED; U Buprenorphine Screen DETECTED; U Cannabinoids Screen Not Detected; U Cocaine Screen Not Detected; U Methadone Screen Not Detected; U Methamphetamine Screen Not Detected; U Opiates Screen DETECTED; U Oxycodone Screen Not Detected; U Phencyclidine Screen Not Detected
--- NOTE | 2023-06-10 04:19 | NUR ---
SHIFT SUMMARY POD1 ANKLE FX REPAIR. SANGUINEOUS DRAINAGE NOTED ON GAUZE AROUND EXTERNAL FIXATOR, NOT SATURATING THROUGH DRESSING. CIRCULATION INTACT IN RLE, PT REPORTS DIIFICULTY W/ SENSATION D/T NEUROPATHY AND NERVE BLOCKS. VSS. PT SLEPT WELL T/O THE NIGHT. VOIDED ON BED NAIR ONCE, A VERY LARGE VOID. SAMPLE FOR TOX SCREEN SENT TO LAB. MEDICATED FOR PAIN WITH SCHEDULED MEDS AND ONE PRN DOSE. NO IV LINE. DISCUSSED W/ PT AT THE BEGINNING OF SHIFT EXPECTATIONS FOR THE NIGHT, SUCH NOT GETTING OOB AND TRYING TO STEP ON RLE, WEARING O2 T/O THE NIGHT TO HAVE SAFE O2 SATURATIONS, AND SPEAKING TO EACHOTHER WITH THERAPEUDIC LANGUAGE VERSES CUSSING AND YELLING. PT VERBALIZED HER UNDERSTANDING AND AGREEMENT. OVERALL, NO ACUTE EVENTS T/O THE NIGHT. PLAN FOR PHYSICAL THERAPY.
[2023-06-10 04:26] LABS: BASOPHILS ABSOLUTE AUTO 0.02 K/mm3 (0.00-0.23); BASOPHILS PERCENT AUTO 0 % (0-2); EOSINOPHILS ABSOLUTE AUTO 0.02 K/mm3 (0.00-0.68); EOSINOPHILS PERCENT AUTO 0 % (0-6); Hematocrit 33.7 % (33.0-51.0); IMMATURE GRAN ABSOLUTE AUTO 0.02 K/mm3 (0.00-0.10); IMMATURE GRAN PERCENT AUTO 0 % (0-1); LYMPHOCYTES ABSOLUTE AUTO 0.91 K/mm3 (0.84-5.20); LYMPHOCYTES PERCENT AUTO 15 % (21-46); MONOCYTES ABSOLUTE AUTO 0.45 K/mm3 (0.16-1.47); MONOCYTES PERCENT AUTO 8 % (4-13); Mean Corpuscular HGB 29.1 pg (26.0-34.0); Mean Corpuscular HGB Conc 32.6 g/dL (31.5-36.5); Mean Corpuscular Volume 89 fL (80-100); NEUTROPHILS ABSOLUTE AUTO 4.47 K/mm3 (1.96-9.15); NEUTROPHILS PERCENT AUTO 76 % (41-73); Platelet Count 209 K/mm3 (150-400); RDW Coefficient Variation 15.2 % (11.7-14.2); RDW Standard Deviation 48.7 fL (35.1-46.3); Red Blood Cell Count 3.78 M/mm3 (3.80-5.20); White Blood Cell Count 5.89 K/mm3 (4.00-11.30)
[2023-06-10 04:41] LABS: International Normalized Ratio 1.14; Prothrombin Time Results 11.9 Sec (9.7-11.5)
[2023-06-10 04:49] LABS: Albumin/Globulin Ratio 0.7 (0.8-1.8); Bilirubin, Total 0.8 mg/dL (0.1-1.0); Bun/Creatinine Ratio 31.7 (12.0-20.0); Calcium, Blood 8.9 mg/dL (8.5-10.1); Creatinine, Blood 0.35 mg/dL (0.40-1.00); Globulin, Blood 4.6 g/dL (2.2-4.0); Potassium, Blood 3.6 mmol/L (3.5-5.5); Total Protein, Blood 7.6 g/dL (6.4-8.2)
[2023-06-10 08:03] VITALS: BP 152/89
--- NOTE | 2023-06-10 08:08 | NUR ---
CHEST PAIN PT C/O CHEST PAIN AFTER GETTING OFF THE BSC, SHE STATES SHE HAS BEEN HAVING SHARP CHEST PAIN ALL NIGHT LONG BUT MADE NO MENTION OF THIS DURING BEDSIDE REPORT OR WHILE HELPING TO GET HER ON TO THE BSC 10 MINUTES PRIOR. NOTIFIED IT RISK AND ASSURANCE MANAGER, OBTAIN EKG AND CURRENT VITALS, NOTIFIED MD.
[2023-06-10] MEDS ORDERED: Enoxaparin 40 MG/0.4 ML SYR SC SCH (09:00)
[2023-06-10] MEDS ORDERED: Heparin Sodium,Porcine/0.5 NS 500 ML IV SCH (09:00)
[2023-06-10] MEDS ORDERED: LORazepam 2 MG/ML 1ML Injection IV ONE (09:30)
--- NOTE | 2023-06-10 10:20 | NUR ---
06/10/23 1020 Elicia Ga VERIFICATIONS: EDIT CHART.
[2023-06-10] MEDS ORDERED: LORazepam Conc 2 MG/ML - 1ML UDC PO PRN (11:55)
[2023-06-10 14:17] VITALS: BP 125/71
[2023-06-10] MEDS ORDERED: ClonazePAM 0.5 MG Tab PO SCH (16:00)
[2023-06-10] MEDS ORDERED: Warfarin Sodium 5 MG Tab PO SCH (18:00)
--- NOTE | 2023-06-10 18:44 | NUR ---
SHIFT SUMMARY POD1 OPEN REDUCTION WITH EXTERNAL FIXATION, A/O X3-4 SHE CAN APPEAR TO BE FULLY ORIENTED BUT THEN DOES THINGS AND SAYS SHE DOESN'T KNOW WHAT HAPPENED, PT REPORTED HAVING CHEST PAIN ALL NIGHT AND THIS MORNING (SEE NURSE NOTES), PT WAS DISRUPTIVE AND REFUSING CARE UNTIL SHE GOT WHAT SHE WANTED, SHE THREATENED TO LEAVE AMA BUT WAS UNABLE TO DO SO SHE DID NOT HAVE A RIDE HOME, PROVIDER ORDERED KLONOPIN GIVEN ORDERED AND SHE SETTLED DOWN AND WAS COOPERATIVE THE REST OF THE SHIFT, SHE CONTINUES TO NOT USE HER CALL LIGHT AND INSTEAD CALLS OUT SHE STARTS GETTING UP, PT GOT UP TO BSC MORE THAN 15 TIMES TODAY WITH ONLY 3 WHERE SHE HAD TO VOID OR HAVE A BM. PT MOVES OUT OF BED AND THEN REPORTS NOT KNOWING HOW SHE GOT THERE. PT CURRENTLY COMPLIANT WITH CARE.
[2023-06-10] MEDS ORDERED: Dose Adjust by Pharmacy XX STA (18:50)
[2023-06-10 20:16] VITALS: BP 128/70
[2023-06-11] MEDS ORDERED: Dose Adjust by Pharmacy XX STA ×4 (04:45→16:55)
--- NOTE | 2023-06-11 06:01 | NUR ---
SHIFT SUMMARY PT HAS INTERMITTENT PERIODS OF ANXIETY THROUGHOUT THE SHIFT. PT WAS VERY ANXIOUS AT THE START OF THE SHIFT. BOUNCING BACK AND FORTH BETWEEN HER CHAIR AND THE BED. PT DOES NOT FOLLOW DIRECTION, GETS UP WITHOUT ASSISTANCE DESPITE THE INSTRUCTION OF STAFF ASKING HER TO USE CALL LIGHT FOR HELP. PT DOES NOT USE CALL LIGHT AND INSTEAD CALLS OUT FOR STAFF. PT MEDICATED WITH SEROQUEL AND SUBOXONE AT HS PER ORDERS AND PT APPEARED TO REST COMFORTABLY FOR THE FIRST HALF THE SHIFT UNTIL ABOUT 0130 WHEN LAB CAME TO GET AM LABS AND THEN PT BECAME RESTLESS AND ANXIOUS AGAIN. PT APPEARS RESTING AGAIN AT THE TIME OF THIS NOTE. PT MEDICATED PRN FOR PAIN T/O THE SHIFT. EXTERNAL FIXATION TO RIGHT ANKLE WNL, DRESSING INTACT. VITALS STABLE. HEPARIN GTT INFUSING. BED IN LOWEST POSITION, CALL LIGHT WITHIN REACH.
[2023-06-11 06:14] LABS: Albumin, Blood 3.1 g/dL (3.4-5.0); Albumin/Globulin Ratio 0.6 (0.8-1.8); Bilirubin, Total 0.8 mg/dL (0.1-1.0); Calcium, Blood 9.2 mg/dL (8.5-10.1); Creatinine, Blood 0.37 mg/dL (0.40-1.00); Globulin, Blood 4.9 g/dL (2.2-4.0); Potassium, Blood 3.2 mmol/L (3.5-5.5)
[2023-06-11 06:49] LABS: International Normalized Ratio 1.04; Prothrombin Time Results 10.9 Sec (9.7-11.5)
--- NOTE | 2023-06-11 07:27 | NUR ---
Late Entry: Security Chief, Justin Ardon and I spoke with patient in response to the MAD Consult order at 1100 on 06/10/23. We asked that she treat staff with respect and assured her staff would be respectful to her. She verbalized wanting to leave and we told her she had rights to what was happening with her care, including whether or not she stayed in the hospital.
[2023-06-11 07:44] LABS: BASOPHILS ABSOLUTE AUTO 0.02 K/mm3 (0.00-0.23); BASOPHILS PERCENT AUTO 0 % (0-2); EOSINOPHILS ABSOLUTE AUTO 0.07 K/mm3 (0.00-0.68); EOSINOPHILS PERCENT AUTO 1 % (0-6); Hematocrit 34.7 % (33.0-51.0); Hemoglobin 11.5 g/dL (11.5-16.0); IMMATURE GRAN ABSOLUTE AUTO 0.06 K/mm3 (0.00-0.10); IMMATURE GRAN PERCENT AUTO 1 % (0-1); LYMPHOCYTES ABSOLUTE AUTO 1.53 K/mm3 (0.84-5.20); LYMPHOCYTES PERCENT AUTO 25 % (21-46); MONOCYTES ABSOLUTE AUTO 0.52 K/mm3 (0.16-1.47); MONOCYTES PERCENT AUTO 9 % (4-13); Mean Corpuscular HGB 29.8 pg (26.0-34.0); Mean Corpuscular HGB Conc 33.1 g/dL (31.5-36.5); Mean Corpuscular Volume 90 fL (80-100); Mean Platelet Volume 9.9 fL (9.1-12.4); NEUTROPHILS ABSOLUTE AUTO 3.89 K/mm3 (1.96-9.15); NEUTROPHILS PERCENT AUTO 64 % (41-73); Platelet Count 203 K/mm3 (150-400); RDW Coefficient Variation 15.9 % (11.7-14.2); RDW Standard Deviation 50.7 fL (35.1-46.3); Red Blood Cell Count 3.86 M/mm3 (3.80-5.20); White Blood Cell Count 6.09 K/mm3 (4.00-11.30)
[2023-06-11 08:10] VITALS: BP 133/85
[2023-06-11] MEDS ORDERED: Potassium Chloride 10 Meq Tablet SA PO ONE (08:30)
[2023-06-11] MEDS ORDERED: ClonazePAM 1 MG Tab PO SCH (09:15)
[2023-06-11 14:26] VITALS: BP 121/61
[2023-06-11 15:27] VITALS: BP 139/80
[2023-06-11] MEDS ORDERED: LORazepam 0.5 MG Tab PO PRN (15:35)
[2023-06-11] MEDS ORDERED: Warfarin Sodium 5 MG Tab PO SCH (18:00)
--- NOTE | 2023-06-11 18:11 | NUR ---
SHIFT SUMMARY: POD 2 RIGHT ANKLE EXTERNAL FIXATION PATIENT IS A&OX4 BUT HAS PERIODS OF ANXIETY WHICH IS MANAGED WITH PO KLONOPIN AND PO ATIVAN THIS SHIFT. PAIN IS MANAGED WITH SL SUBOXONE AND PO NEURONTIN. PATIENT IS A SBA WITH FWW AND GAIT BELT WHEN STAND-PIVIOT FROM BED TO CHAIR TO BSC. PATIENT IS TOLERATING HER DINNER PO INTAKE AND IS VOIDING AND PASSING GAS. PATIENTS RIGHT ANKLE HAS A SPLINT WITH RENO WRAP WITH EXTERNAL HARDWARE THAT IS C/D/I. PATIENT IS ABLE TO WIGGLE ALL FINGERS AND TOES. PATIENT IS CURRENTLY IN THE RECLINER CHAIR WITH CALL LIGHT IN REACH AND RIGHT ANKLE ELEVATED ON PILLOWS. HEPARIN GTT RUNNING THROUGH HER HEIDY POWERGLIDE.
[2023-06-11 20:14] VITALS: BP 117/54
[2023-06-12] MEDS ORDERED: Dose Adjust by Pharmacy XX STA (00:26)
[2023-06-12] MEDS ORDERED: Heparin Sodium 5000 Units/ML 1ML MDV IV ONE (00:30)
[2023-06-12 04:40] VITALS: BP 119/63
--- NOTE | 2023-06-12 05:58 | NUR ---
SHIFT SUMMARY POD 3 R ANKLE EXTERNAL FIXATION. NO ACUTE CHANGES OVERNIGHT. VSS. TOLERATING ORALS. STAND/PIVOT TO BSC c FWW/GB & 1 PERSON ASSIST. ASSISTED TOILETING, NO BM OVERNIGHT. URINE DARK YELLOW, ORAL INTAKE ENCOURAGED. HEPARIN INFUSING PER EMAR, DOSE ADJUSTED 1X THIS SHIFT. PT REPORTS PAIN CONSISTENTLY 8/10 OR HIGHER. PT REPORTS BLADDER & RLE ARE CAUSING PAIN- MEDICATED PER EMAR. ANTICIPATED DISCHARGE TO SNF. CALL LIGHT IN REACH, PT SITTING IN CHAIR, WILL REPORT TO DAY RN.
[2023-06-12 07:58] VITALS: BP 111/60
[2023-06-12] MEDS ORDERED: Enoxaparin 80 MG/0.8 ML SYR SC SCH (09:00)
[2023-06-12 10:16] LABS: International Normalized Ratio 1.33; Prothrombin Time Results 13.7 Sec (9.7-11.5)
[2023-06-12 10:27] LABS: Bun/Creatinine Ratio 14.3 (12.0-20.0); Calcium, Blood 8.7 mg/dL (8.5-10.1); Creatinine, Blood 0.42 mg/dL (0.40-1.00); Potassium, Blood 3.2 mmol/L (3.5-5.5)
[2023-06-12] MEDS ORDERED: Potassium Chloride 10 Meq Tablet SA PO ONE (11:10)
--- NOTE | 2023-06-12 13:40 | NUR ---
PT ON RECLINER, OOB W/ 1 PERSON ASSIST TO BSC, TOLERATING WELL, NEURO CHECKS INTACT, PT A SNF BED, PAIN MANAGED W/ CURRENT REGIMEN, NO OTHER CHANGES NOTED, REPORT GIVEN TO CALLUM MOREJON.
[2023-06-12 15:26] VITALS: BP 122/54
[2023-06-12] MEDS ORDERED: Nicotine 21 MG PATCH TOP SCH (15:40)
--- NOTE | 2023-06-12 16:52 | NUR ---
SHIFT SUMMARY POD3 EXT FIX R, NWB/STAND PIVOT WITH FWW AND 1 PP MIN ASSIST, UP TO CHAIR/BSC, A&OX4, VSS/RA, BENNY PO, VOIDING, PAIN TREATED PER EMAR, NICOTINE PATCH R CHEST. WILL REPORT TO ONCOMING NOC RN.
[2023-06-12] MEDS ORDERED: Warfarin Sodium 5 MG Tab PO ONE (18:00)
[2023-06-12 20:04] VITALS: BP 153/69
[2023-06-13 02:40] VITALS: BP 119/60
--- NOTE | 2023-06-13 04:36 | NUR ---
SHIFT SUMMARY POD 4 EXTERNAL FIXATION OF R ANKLE PT SLEPT FOR MOST OF NIGHT. PAIN MANAGED PER EMAR. TOLERATING PO INTAKE, VOIDING. NWB ON RLE, STAND PIVOT TO BSC, 1 PERSON ASST. PT ABLE TO WIGGLE TOES AND DENIES N/T IN FEET. WORE 2L NC DURING THE NIGHT, STAYED ABOVE 94% ON 2L. NO OTHER CONCERNS AT THIS TIME, CALL LIGHT WITHIN REACH
[2023-06-13 04:40] LABS: International Normalized Ratio 1.43; Prothrombin Time Results 14.7 Sec (9.7-11.5)
[2023-06-13 07:31] VITALS: BP 127/62
[2023-06-13] MEDS ORDERED: Potassium Chloride 10 Meq Tablet SA PO SCH (09:00)
[2023-06-13 12:13] LABS: Base Excess Venous 9.6 mmol/L; Bicarbonate Venous 32.1 mmol/L (24.0-30.0); PCO2 Venous 53.6 mmHg (38-42); pH Blood Venous 7.41 (7.34-7.37)
[2023-06-13 15:22] VITALS: BP 108/54
--- NOTE | 2023-06-13 16:13 | NUR ---
SHIFT SUMMARY PT POD #4 FOR EXTERNAL FIXATION TO R ANKLE FOLLOWING A GLF AT HOME. A/O X4 AND TREATED PER EMR FOR PAIN AND ANXIETY. PT SOMETIMES NEEDS ENCOURAGEMENT TO WEAR HER O2. PT WILL DESAT WHEN TAKING MEDICATIONS. PT IS A 1 ASSIST TO THE BSC WITH GB/WALKER. RECOMMENDED TO DC TO SNF. PT UP IN THE CHAIR WITH HER CALL LIGHT IN REACH AND ABLE TO MAKE HER NEEDS KNOWN.
[2023-06-13] MEDS ORDERED: ClonazePAM 1 MG Tab PO SCH (16:30)
--- NOTE | 2023-06-13 17:57 | NUR ---
ASSUMED CARE OF PT THIS AFTERNOON, MEDICATED FOR PAIN PER EMAR, PT ON RECLINER CHAIR W/ LEGS ELEVATED, TOOK A NAP THIS AFTERNOON, CONT. TO BE ON 2L O2 VIA NC, NO ACUTE CHANGES THIS AFTERNOON.
[2023-06-13] MEDS ORDERED: Warfarin Sodium 5 MG Tab PO SCH (18:00)
[2023-06-13 20:00] VITALS: BP 112/54
[2023-06-14 04:30] VITALS: BP 102/51
[2023-06-14 06:03] LABS: International Normalized Ratio 1.83; Prothrombin Time Results 18.6 Sec (9.7-11.5)
[2023-06-14 06:13] LABS: Bun/Creatinine Ratio 21.5 (12.0-20.0); Calcium, Blood 8.7 mg/dL (8.5-10.1); Creatinine, Blood 0.42 mg/dL (0.40-1.00); Potassium, Blood 3.5 mmol/L (3.5-5.5)
--- NOTE | 2023-06-14 06:33 | NUR ---
SHIFT SUMMARY POD #5 NO ACUTE CHANGES NOTED, PT SLEPT IN CHAIR PER REQUEST, A&O, VSS, 2L NC, CONT BIOX IN PLACE, R.LEG ELEVATED, CIRC WNL, DRSG INTACT, SBA TO BSC, PAIN MANAGED PER EMAR.
[2023-06-14 07:25] VITALS: BP 117/50
[2023-06-14] MEDS ORDERED: QUEtiapine Fumarate 100 MG Tab PO SCH (11:00)
[2023-06-14] MEDS ORDERED: Buprenorphine HCL/Naloxone HCL 2-0.5MG 1 EA SL SCH ×2 (13:50→14:00)
[2023-06-14 14:16] VITALS: BP 99/54
[2023-06-14] MEDS ORDERED: ClonazePAM 0.5 MG Tab PO SCH (16:30)
[2023-06-14] MEDS ORDERED: Warfarin Sodium 5 MG Tab PO ONE (18:00)
--- NOTE | 2023-06-14 19:09 | NUR ---
SHIFT SUMMARY POD5 R ANKLE EXTERNAL FIXATION OPEN REDUCTION, A/OX4, VSS THOUGH HER BP AND HR HAVE BEEN ON THE LOWER END OF NORMAL TODAY, DRESSING TO R ANKLE CHANGED (SEE NURSE NOTES), PT WAS ARGUMENTATIVE WITH STAFF REGARDING SUBOXONE ADMINISTRATION TIMES, ATIVAN, AND KLONOPIN. PT WAS EDUCATED THAT THESE MEDCIATIONS WOULD BE ADMINISTERED ORDERED WITH HER SUBOXONE ADJUSTED TO 0700 1300 AND 1900 AND NO EARLIER PER MD. NO OTHER EVENTS THIS SHIFT, CALL LIGHT IN REACH.
--- NOTE | 2023-06-14 19:13 | NUR ---
DRESSING CHANGE PER ORTHO PROGRESS NOTE, DRESSING TO BE CHANGED POD3. OLD DRESSING REMOVED (RENO/GAUZE/MESH/XEROFORM), ALL PIN SITES WERE FREE FROM REDNESS AND NO EVIDENCE OF ANY PURULENT DRAINAGE. AREA UNDER OLD DRESSING CLEANED WITH STERILE SALINE AND STERILE GAUZE, NEW XEROFORM APPLIED TO ALL PIN SITES AND TO THE 2 SMALL OPEN SORES WHERE ONE WAS LOCATED ON ORIGINAL DRESSING. THE LIMB WAS THEN WRAPPED USING ROLLED GAUZE AROUND THE CALF AND SUPERIOR 2 PINS, HER R LOWER LEG WAS THEN WRAPPED WITH CHICKEN SKIN X2 FOR PADDING FROM TOES TO JUST ABOVE SUPRIOR MOST PIN, THIS WAS COVERED WITH RENO WRAPS X2, SHE HAD 2 ABD PADS AT THE BACK OF HER ANKLE ON THE ORIGINAL DRESSING OVER THE RENO WRAPS AND HELD IN PLACE BY AN ADDITIONAL RENO WRAP, SHE REQUESTED TO NOT HAVE THESE IN PLACE AT THIS TIME AND ARE IN THE ROOM AVAILABLE SHOULD SHE CHANGE HER MIND.
[2023-06-14 19:24] VITALS: BP 107/59
[2023-06-15 04:58] LABS: International Normalized Ratio 2.46; Prothrombin Time Results 24.5 Sec (9.7-11.5)
--- NOTE | 2023-06-15 06:01 | NUR ---
SHIFT SUMMARY PT IS POD#6 S/P EXTERNAL FIXATION OF HER RIGHT ANKLE AFTER A GLF WITH A PLAN FOR INTERNAL FIXATION IN 2-3 WEEKS. PT ABLE TO TRANSFER TO THE [facility] WITH A FWW AND GB. PT WAS UNHAPPY ABOUT RECEIVING HER MEDICATIONS AT THE ORDERED TIME OF 2100 INSTEAD OF 2000, BUT WAS ABLE TO REST FOR THE MAJORITY OF THE SHIFT. UPON ENTERING THE PT'S ROOM THIS MORNING TO DRAW BLOOD FROM HER POWERGLIDE IV, IT WAS DISCOVERED THAT SHE INADVERTANLY PULLED IT OUT WHEN SHE WAS SLEEPING. NO SIGNS OF TRAUMA AROUND THE IV SITE, BUT THERE WAS EVIDENTLY SOME BLEEDING THAT OCCURRED AND WENT ONTO THE PT'S NIGHTGOWN. PT STATED TO THIS RN THAT SHE WOULD LIKE HER KLONOPIN AT 0700 INSTEAD OF THE SCHEDULED TIME OF 0730. THIS RN WILL PASS THAT INFORMATION TO THE DAYSHIFT RN. NO ACUTE EVENTS OCCURRED OVERNIGHT. BED IS IN LOWEST POSITION, CALL LIGHT IS WITHIN REACH.
--- NOTE | 2023-06-15 07:00 | NUR ---
recvd chairside report from previous RN. Pt sitting up in chair, awake/oriented x 4, requested analgesia, rates pain at 10/10, no grimace, no tears, no movements of extremeties, skin dry, no vocal disturbance. Call light within reach.
[2023-06-15 08:13] VITALS: BP 111/54
--- NOTE | 2023-06-15 08:30 | NUR ---
HOSPITALIST ROUNDED ON PT, ENCOURAGED PT TO BE OUT OF BED
[2023-06-15] MEDS ORDERED: LORazepam 0.5 MG Tab PO PRN (11:45)
[2023-06-15 15:41] VITALS: BP 133/78
--- NOTE | 2023-06-15 17:37 | NUR ---
PATIENT UPSET REGARDING MEDICATIONS PT APPROACHED THE NURSES STATION IN HER WC TO C/O NOT GETTING HER MEDICATIONS WHEN SHE ASKED FOR THEM. SHE HAS BEEN ASKING FOR THEM ALL EARLY STATING THAT SOMEONE TOLD HER ALL MEDICATIONS COULD BE GIVEN AN HOUR EARLY. THIS RN HAD PRIOR CONVERSATION WITH HER REGARDING EARLY MED PASSES AND THAT THEY WERE NOT SOMETHING WE DO ROUTINELY AND IT DOES NOT APPLY TO ALL MEDICATIONS. SHE VOICED HER CONCERNS THAT SHE HAD NOT BEEN GIVEN HER KLONOPIN AT 1630 AND IT WAS JUST AFTER 1700. THIS RN ATTEMPTED TO EXPLAIN TO HER THAT THEY WAS CURRENTLY A MORE EMERGENT SITUATION THAT WAS BEING TAKEN CARE OF INVOLVING ANOTHER PATIENT AND SHE WOULD BE BROUGHT HER MEDICATION SOON WE WERE AVAILABLE TO DO SO. SHE STATED THAT SHE DID NOT BELIEVE THIS TO BE TRUE AND ASKED TO TALK TO SOMEONE IN CHARGE. CLERK NOTIFIED OF THIS. SHE CONTINUED TO REPORT THAT NURSING STAFF HAVE BEEN "INTENTIONALLY WITHHOLDING HER MEDICATIONS BECAUSE IT IS A GAME". PT ASSURED THIS WAS NOT THE CASE AND THAT NO MEDICATIONS THAT ARE ORDERED ARE EVER WITHHELD WITHOUT JUSTIFICATION. PT WAS GIVEN THIS MEDICATION BY CLERK AND REQUESTED A DIFFERENT NURSE.
[2023-06-15] MEDS ORDERED: Warfarin Sodium 2.5 MG Tab PO ONE (18:00)
[2023-06-15 18:42] VITALS: BP 107/53
[2023-06-15 19:54] VITALS: BP 102/52
[2023-06-16 04:31] VITALS: BP 113/56
[2023-06-16 05:33] LABS: Hematocrit 33.5 % (33.0-51.0); Hemoglobin 10.7 g/dL (11.5-16.0); Mean Corpuscular HGB 29.2 pg (26.0-34.0); Mean Corpuscular HGB Conc 31.9 g/dL (31.5-36.5); Mean Corpuscular Volume 92 fL (80-100); Mean Platelet Volume 10.2 fL (9.1-12.4); Platelet Count 211 K/mm3 (150-400); RDW Coefficient Variation 16.4 % (11.7-14.2); RDW Standard Deviation 53.6 fL (35.1-46.3); Red Blood Cell Count 3.66 M/mm3 (3.80-5.20); White Blood Cell Count 4.64 K/mm3 (4.00-11.30)
[2023-06-16 05:45] LABS: International Normalized Ratio 2.07; Prothrombin Time Results 20.9 Sec (9.7-11.5)
--- NOTE | 2023-06-16 05:47 | NUR ---
SHIFT SUMMARY POD6 EXTERNAL FIXATION OF RLE. CIRCUALTION REMAINS INTACT. VSS. PT SLEPT WELL T/O THE NIGHT. MEDICATED FOR PAIN ONCE T/O THE NIGHT. PT AMBULATED TO BSC W/ MINIMAL ASSISTANCE. TOLLERATING PO INTAKE W/O N/V. NO ACUTE EVENTS NOTED T/O THE NIGHT. PLAN FOR POSSIBLE D/C TODAY.
[2023-06-16 05:56] LABS: Calcium, Blood 8.8 mg/dL (8.5-10.1); Creatinine, Blood 0.45 mg/dL (0.40-1.00); Potassium, Blood 3.5 mmol/L (3.5-5.5)
[2023-06-16 07:24] VITALS: BP 111/58
[2023-06-16] MEDS ORDERED: CLON.5 PO (10:45)
[2023-06-16] MEDS ORDERED: LORA.5 PO (10:49)
[2023-06-16] MEDS ORDERED: NICO21TP TOP (10:49)
[2023-06-16] MEDS ORDERED: POTA10T PO (10:50)
[2023-06-16 12:47] VITALS: BP 105/48
--- NOTE | 2023-06-16 13:07 | NUR ---
DISCHARGED REVIEWED DC INSTRUCTIONS W/PT; VERBALIZED UNDERSTANDING. PT LEFT UNIT IN WC, ACCOMPANIED BY TRANSPORT WITH POSSESSIONS AND DC INSTRUCTIONS IN HAND.
[2023-06-16] MEDS ORDERED: Warfarin Sodium 7.5 MG Tab PO ONE (18:00)
== END 2023-06-16 13:10 | disposition home health service (06) | DRG 493 ==
LOC: ER 11:52 → SURS 11:53
PROVIDERS: Emergency Medicine; Family Medicine Adult Medicine; Hospitalist; Internal Medicine; Orthopaedic Surgery; Orthopaedic Surgery Sports Medicine; Student in an Organized Health Care Education/Training Program; ADMIT Internal Medicine
PROC: 0QSGXZZ Reposition Right Tibia, External Approach (ICD-10-PCS; 2023-06-08)
PROC: 0QSG35Z Reposition Right Tibia with External Fixation Device, Percutaneous Approach (ICD-10-PCS; principal; 2023-06-09 13:30)
DX: S82.851A Displaced trimalleolar fracture of right lower leg, initial encounter for closed fracture (principal); E87.1 Hypo-osmolality and hyponatremia; I50.32 Chronic diastolic (congestive) heart failure; F31.9 Bipolar disorder, unspecified; G89.29 Other chronic pain; E11.9 Type 2 diabetes mellitus without complications; J44.9 Chronic obstructive pulmonary disease, unspecified; A60.00 Herpesviral infection of urogenital system, unspecified; E66.01 Morbid (severe) obesity due to excess calories; W01.0XXA Fall on same level from slipping, tripping and stumbling without subsequent striking against object, initial encounter; F17.290 Nicotine dependence, other tobacco product, uncomplicated; R29.6 Repeated falls; F41.9 Anxiety disorder, unspecified; K42.9 Umbilical hernia without obstruction or gangrene; Z95.2 Presence of prosthetic heart valve; Z79.01 Long term (current) use of anticoagulants; Z68.38 Body mass index [BMI] 38.0-38.9, adult; Z11.52 Encounter for screening for COVID-19
CPT/HCPCS: 0241U; 27810; 36415; 71045; 73600; 73610; 73701; 80048; 80053; 82803; 82947; 83735; 85025; 85027; 85520; 85610; 93005; 93010; 94640; 94664; 94760; 94762; 96374-59; 96375-59; 97110; 97116; 97162; 97165; 97530; 97535; 99285-25; A9270; C1713; J0171; J0572; J0690; J1100; J1170; J1644; J1650; J1885; J2060; J2250; J2405; J2704; J3010; J3430; J7030; J7050; J7120; Q9967

== ENCOUNTER 2023-09-26 09:05 | Observation (INO) | payer OTHER ==
[~2023-09-26] VITALS: Ht 162.6 cm; Wt 110.6 kg
[~2023-09-26 09:05] MED LIST changes: +ACETAMINOPHEN500 M2 PO; +ACYC400 PO; +ALBU3IS INH; +BACTRIM DS TAB1 EAC1 PO; +BUPRENORPHN-NA1 EACH SL; +CLON.5 PO; +FLUOXETINE HCL20 M1 PO; +GABA300 PO; +NICO21TP TOP; +QUETIAPINE FUM400 M2 PO
[2023-09-26] MEDS ORDERED: Morphine Sulfate 4 MG/1 ML Injection IV ONE (09:20)
[2023-09-26] MEDS ORDERED: Ondansetron HCl 2 MG / ML 2ML Vial IV ONE (09:20)
[2023-09-26 09:37] LABS: BASOPHILS ABSOLUTE AUTO 0.02 K/mm3 (0.00-0.23); BASOPHILS PERCENT AUTO 0 % (0-2); EOSINOPHILS PERCENT AUTO 0 % (0-6); Hematocrit 46.5 % (33.0-51.0); Hemoglobin 15.4 g/dL (11.5-16.0); IMMATURE GRAN PERCENT AUTO 1 % (0-1); LYMPHOCYTES PERCENT AUTO 7 % (21-46); MONOCYTES ABSOLUTE AUTO 0.46 K/mm3 (0.16-1.47); MONOCYTES PERCENT AUTO 4 % (4-13); Mean Corpuscular HGB 29.6 pg (26.0-34.0); Mean Corpuscular HGB Conc 33.1 g/dL (31.5-36.5); Mean Corpuscular Volume 89 fL (80-100); Mean Platelet Volume 9.9 fL (9.1-12.4); NEUTROPHILS ABSOLUTE AUTO 9.55 K/mm3 (1.96-9.15); NEUTROPHILS PERCENT AUTO 87 % (41-73); Platelet Count 247 K/mm3 (150-400); RDW Coefficient Variation 13.1 % (11.7-14.2); RDW Standard Deviation 42.3 fL (35.1-46.3); Red Blood Cell Count 5.21 M/mm3 (3.80-5.20); White Blood Cell Count 10.93 K/mm3 (4.00-11.30)
[2023-09-26 09:50] LABS: Source, Urine Clean Catch
[2023-09-26 10:03] LABS: Appearance, Urine Clear (Clear); Bilirubin, Urine Neg (Neg); Blood, Urine 1+ (Neg); Color, Urine Yellow (P-Yellow); Glucose Qualitative, Urine 4+ (Neg); Ketones, Urine 1+ (Neg); Leukocyte Esterase, Urine Neg (Neg); Nitrite, Urine Neg (Neg); Protein, Urine 3+ (Neg); Specific Gravity, Urine 1.025 (1.003-1.022); Urobilinogen, Urine NORM (Normal)
[2023-09-26 10:09] LABS: Amorphous Light (0-Heavy); Bacteria Rare /hpf; Mucus Light (0-Heavy); Squamous Epithelial Cells Many /hpf (Few); White Blood Cells, Urine 0-2 /hpf (0-5)
[2023-09-26 10:10] LABS: Yeast/Fungi Urine Rare /hpf
[2023-09-26 10:19] LABS: Albumin, Blood 3.7 g/dL (3.4-5.0); Albumin/Globulin Ratio 0.6 (0.8-1.8); Bilirubin, Total 0.6 mg/dL (0.1-1.0); Bun/Creatinine Ratio 23.6 (12.0-20.0); Calcium, Blood 9.9 mg/dL (8.5-10.1); Creatinine, Blood 0.42 mg/dL (0.40-1.00); Globulin, Blood 5.7 g/dL (2.2-4.0); Potassium, Blood 3.5 mmol/L (3.5-5.5); Total Protein, Blood 9.4 g/dL (6.4-8.2)
[2023-09-26] MEDS ORDERED: DOCU100 PO (10:53)
[2023-09-26] MEDS ORDERED: SULTRIDS PO (10:53)
[2023-09-26] MEDS ORDERED: NS 1,000 ML IV SCH (11:50)
[2023-09-26] MEDS ORDERED: CefTRIAXone Sodium 1,000 MG in NS 100 ML IV ONE (11:50)
[2023-09-26] MEDS ORDERED: Bisacodyl 10 MG Supp PR PRN (12:20)
[2023-09-26] MEDS ORDERED: Acetaminophen 325 MG TABLET PO PRN (12:20)
[2023-09-26] MEDS ORDERED: Zolpidem Tartrate 5 MG Tab PO PRN (12:25)
[2023-09-26] MEDS ORDERED: Magnesium Hydroxide Conc 10 ML UDC PO PRN (12:25)
[2023-09-26] MEDS ORDERED: Ondansetron 4 MG TAB PO PRN (12:25)
[2023-09-26 12:27] LABS: U Amphetamine Screen Not Detected; U Barbituate Screen Not Detected; U Benzodiazapine Screen DETECTED; U Cannabinoids Screen Not Detected; U Cocaine Screen Not Detected; U Methadone Screen Not Detected; U Methamphetamine Screen Not Detected; U Opiates Screen Not Detected; U Oxycodone Screen Not Detected; U Phencyclidine Screen Not Detected
[2023-09-26 12:29] LABS: U Buprenorphine Screen DETECTED
[2023-09-26] MEDS ORDERED: Albuterol HFA200 ACT/6.7 GM INH INH PRN (12:45)
[2023-09-26 13:41] LABS: International Normalized Ratio 2.06; Prothrombin Time Results 20.9 Sec (9.7-11.5)
[2023-09-26] MEDS ORDERED: Buprenorphine HCL/Naloxone HCL 8MG-2MG Tab SL SCH (14:00)
--- NOTE | 2023-09-26 15:00 | NUR ---
THIS RN PROVIDING BREAK COVERAGE FOR PRIMARY NURSE WHO WILL BE RECEIVING PT ON MED FLOOR.
[2023-09-26 16:24] VITALS: BP 114/84
[2023-09-26] MEDS ORDERED: Insulin Regular 100 UNIT/ML 10ML Vial SC SCH (16:30)
--- NOTE | 2023-09-26 16:40 | NUR ---
THIS RN PROVIDING BREAK COVERAGE FOR PRIMARY NURSE TODAY.
[2023-09-26] MEDS ORDERED: Warfarin Sodium 7.5 MG Tab PO SCH (18:00)
[2023-09-26] MEDS ORDERED: Warfarin Sodium 5 MG Tab PO SCH (18:00)
--- NOTE | 2023-09-26 18:13 | NUR ---
SHIFT SUMMARY; PATIENT ARRIVES TO MED FLOOR APPROX 1630. SHE SPEAKS YES NO AND "I DON'T KNOW TO EVERYTHING ASKED OF HER. THIS RN UNABLE TO ANSWER MOST OF HISTORY QUESTIONS FOR THIS PATIENT. UNABLE TO REACH FAMILY OR CAREGIVER. PATIENT VERY DIAPHORETIC ON ARRIVAL TO MED FLOOR. SHE IS UP AND DOWN TO BEDSIDE COMMODE.
[2023-09-26 19:24] VITALS: BP 149/90
[2023-09-26 19:55] LABS: Free Thyroxine 0.63 ng/dL (0.70-1.60); Thyroid Stimulating Hormone 0.826 uIU/mL (0.360-4.800)
[2023-09-26] MEDS ORDERED: Docusate Sodium 100 MG Cap PO SCH (21:00)
[2023-09-26] MEDS ORDERED: QUEtiapine Fumarate 200 MG Tab PO SCH (21:00)
[2023-09-26] MEDS ORDERED: Sennosides 8.6 MG Tab PO SCH (21:00)
[2023-09-26] MEDS ORDERED: Metoprolol Tartrate 50 MG Tab PO SCH (21:00)
[2023-09-26] MEDS ORDERED: buprenorphine HCL 2 MG TAB.SUBL SL SCH (21:00)
[2023-09-26] MEDS ORDERED: Lactobacil 2-S.Thermo-Bifido 1 1 Cap PO SCH (21:00)
[2023-09-26] MEDS ORDERED: Famotidine 20 MG Tab PO SCH (21:00)
[2023-09-26] MEDS ORDERED: CarBAMazepine 200 MG Tab PO SCH (21:00)
[2023-09-27 03:05] VITALS: BP 148/86
--- NOTE | 2023-09-27 05:07 | NUR ---
SHIFT SUMMARY PATIENT HAD NO ACUTE CHANGES. AXOX 2 WITH COGNITIVE DELAY. MOSTLY YES/NO ANSWERS. TWO ASSIST TO BSC. DENIES CHEST PAIN, SOB, AND N/V. CBG 204 & 177. VSS/AFEBRILE. SCHEDULE BOWEL MEDICATIONS GIVEN. CALL LIGHT IN REACH. BED IN LOWEST POSITION AND ALARM ACTIVATED. WILL CONTINUE TO MONITOR UNTIL DAY SHIFT NURSE ASSUMES CARE.
[2023-09-27 05:59] LABS: International Normalized Ratio 1.77; Prothrombin Time Results 18.2 Sec (9.7-11.5)
[2023-09-27 06:04] LABS: Calcium, Blood 9.3 mg/dL (8.5-10.1); Creatinine, Blood 0.4 mg/dL (0.40-1.00); Potassium, Blood 3.4 mmol/L (3.5-5.5)
[2023-09-27 07:10] VITALS: BP 135/70
[2023-09-27] MEDS ORDERED: Potassium Chloride 20 MEQ TabCR PO SCH (09:00)
[2023-09-27] MEDS ORDERED: FLUoxetine HCL 20 MG CAP PO SCH (09:00)
[2023-09-27] MEDS ORDERED: Enoxaparin 40 MG/0.4 ML SYR SC SCH (09:00)
--- NOTE | 2023-09-27 12:00 | NUR ---
SPOKE TO DR ELLIOTT RE PT C/O PAIN. NO FURTHER MEDS AVAIL AT THIS TIME.
[2023-09-27] MEDS ORDERED: Polyethylene Glycol 3350 17 gm PO SCH (12:05)
[2023-09-27] MEDS ORDERED: Methylnaltrexone Bromide 12 MG/0.6 ML Injection SC ONE (12:55)
[2023-09-27] MEDS ORDERED: buprenorphine HCL 2 MG TAB.SUBL SL ONE (13:00)
--- NOTE | 2023-09-27 14:04 | NUR ---
[facility], CALLED [phone]. REQUEST CALL WHEN KNOW DISCHARGE TO BE AVAILABLE TO PROVIDE CARE.
[2023-09-27 15:50] VITALS: BP 122/69
--- NOTE | 2023-09-27 16:28 | NUR ---
PT C/O NO BM YET. CALLED DR EARL CASTRO GIVEN
[2023-09-27] MEDS ORDERED: Lactulose 20 GM/30 ML UDC PO ONE (16:30)
--- NOTE | 2023-09-27 16:54 | NUR ---
AMA PT REQUESTING TO LEAVE THE HOSPITAL. PT STATES SHE WANTS TO GO HOME. THIS RN CALLED DR. ELLIOTT TO DISCUSS PT'S REQUEST TO LEAVE. DR. ELLIOTT TOLD THIS RN THAT PT COULD LEAVE AMA. PT TRYING TO FIND RIDE AT THIS TIME. ASSEMBLY MACHINE SET UP MECHANIC AWARE.
--- NOTE | 2023-09-27 17:07 | NUR ---
PT MAD, UNCONSOLABLE. SHE DECIDED TO GO AMA. DISCUSSED WITH DR ELLIOTT. PT SIGNED AMA FORM. LEFT AT 1704 WALKING SELF
--- NOTE | 2023-09-27 17:16 | NUR ---
[facility] AMA CALLED DR ELLIOTT, ADVISED PT LEFT AMA CALLED [facility] TO UPDATE PT LEFT AMA PT STATED CALLED CAREGIVER DIRECT AND THEY WILL TAKE HER HOME. PT WALKED OUT 170
[2023-09-27] MEDS ORDERED: Warfarin Sodium 5 MG Tab PO SCH (18:00)
[2023-09-28] MEDS ORDERED: Levothyroxine Sodium 0.025 MG Tab PO SCH (06:00)
[2023-09-29 07:05] LABS: THYROID PEROXIDASE (TPO) AB 1.9 IU/mL (0.0-9.0)
== END 2023-09-27 17:18 | disposition left against medical advice (07) ==
LOC: ER 09:05 → MEDS 09:06
PROVIDERS: Emergency Medicine; ADMIT Hospitalist
DX: K59.00 Constipation, unspecified (principal); I51.7 Cardiomegaly; K86.89 Other specified diseases of pancreas; E11.9 Type 2 diabetes mellitus without complications; J44.9 Chronic obstructive pulmonary disease, unspecified; F31.9 Bipolar disorder, unspecified; I50.9 Heart failure, unspecified; Z87.891 Personal history of nicotine dependence
CPT/HCPCS: 36415; 74177; 76536; 80048; 80053; 81001; 82010; 82947; 83036; 83690; 83880; 84439; 84443; 84484; 85025; 85610; 86376; 93005; 93010; 94760; 96361; 96365-59; 96375; 99285-25; A9270; G0378; J0696; J1815; J2212; J2270; J2405; J7030; Q9967

== ENCOUNTER → 2023-10-14 | Outpatient (CLI) | payer OTHER ==
[2023-10-14 14:24] LABS: Source, Urine Voided
[2023-10-14 15:29] LABS: Bacteria Many /hpf; Squamous Epithelial Cells Few /hpf (Few); White Blood Cells, Urine 0-2 /hpf (0-5)
== END | disposition home or self-care (01) ==
LOC: LAB SHORT 14:19 → LAB 14:19
PROVIDERS: Family Medicine
DX: R30.0 Dysuria (principal)
CPT/HCPCS: 81015; 87086

== ENCOUNTER → 2023-10-30 | Outpatient (CLI) | payer OTHER | END | disposition home or self-care (01) | LOC: LAB 15:07 → LAB SHORT 15:07 | DX: R30.0 Dysuria (principal) | CPT/HCPCS: 87086 ==

== ENCOUNTER 2023-12-09 17:10 | Emergency (ER) | payer OTHER ==
[~2023-12-09] VITALS: Ht 167.6 cm; Wt 111.1 kg
[2023-12-09 17:36] VITALS: BP 134/78
[2023-12-09] MEDS ORDERED: Phytonadione 5 MG Tab PO ONE (17:40)
[2023-12-09] MEDS ORDERED: Phytonadione 5 MG in NS 50 ML IV ONE (17:40)
== END 2023-12-09 18:08 | disposition home or self-care (01) ==
LOC: ER 17:10
DX: R79.1 Abnormal coagulation profile (principal); I50.32 Chronic diastolic (congestive) heart failure; E11.9 Type 2 diabetes mellitus without complications; J44.9 Chronic obstructive pulmonary disease, unspecified; F31.9 Bipolar disorder, unspecified; F17.290 Nicotine dependence, other tobacco product, uncomplicated; Z99.81 Dependence on supplemental oxygen; Z91.030 Bee allergy status; Z79.899 Other long term (current) drug therapy
CPT/HCPCS: 99282; A9270; J3430

== ENCOUNTER 2023-12-11 09:40 | Emergency (ER) | payer OTHER ==
[~2023-12-11] VITALS: Ht 167.6 cm; Wt 111.1 kg
[2023-12-11 12:06] LABS: Prothrombin Time Results 47.6 Sec (9.7-11.5)
[2023-12-11 12:15] LABS: International Normalized Ratio 5.01
[2023-12-11] MEDS ORDERED: HYDMOR2 PO (12:30)
[2023-12-11] MEDS ORDERED: HYDROmorphone HCl/Pf 1MG SYR IV ONE (12:30)
[2023-12-11] MEDS ORDERED: Ondansetron HCl 2 MG / ML 2ML Vial IV ONE (12:30)
== END 2023-12-11 12:51 | disposition home or self-care (01) ==
LOC: ER 09:40
PROVIDERS: Emergency Medicine
DX: S80.02XA Contusion of left knee, initial encounter (principal); S80.01XA Contusion of right knee, initial encounter; S90.122A Contusion of left lesser toe(s) without damage to nail, initial encounter; S90.31XA Contusion of right foot, initial encounter; F17.200 Nicotine dependence, unspecified, uncomplicated; W18.30XA Fall on same level, unspecified, initial encounter; Z91.038 Other insect allergy status; Z79.899 Other long term (current) drug therapy
CPT/HCPCS: 73562-LT; 73562-RT; 73630; 85610; 96374; 96375; 99283-25; J1170; J2405

== ENCOUNTER 2023-12-12 22:48 | Emergency (ER) | payer OTHER ==
[~2023-12-12] VITALS: Ht 167.6 cm; Wt 111.1 kg
[2023-12-12 23:09] LABS: BASOPHILS ABSOLUTE AUTO 0.05 K/mm3 (0.00-0.23); BASOPHILS PERCENT AUTO 1 % (0-2); EOSINOPHILS ABSOLUTE AUTO 0.09 K/mm3 (0.00-0.68); EOSINOPHILS PERCENT AUTO 1 % (0-6); Hematocrit 39.3 % (33.0-51.0); IMMATURE GRAN ABSOLUTE AUTO 0.08 K/mm3 (0.00-0.10); IMMATURE GRAN PERCENT AUTO 1 % (0-1); LYMPHOCYTES PERCENT AUTO 17 % (21-46); MONOCYTES ABSOLUTE AUTO 0.97 K/mm3 (0.16-1.47); MONOCYTES PERCENT AUTO 11 % (4-13); Mean Corpuscular HGB 30.4 pg (26.0-34.0); Mean Corpuscular HGB Conc 33.1 g/dL (31.5-36.5); Mean Corpuscular Volume 92 fL (80-100); Mean Platelet Volume 10.7 fL (9.1-12.4); NEUTROPHILS ABSOLUTE AUTO 6.41 K/mm3 (1.96-9.15); NEUTROPHILS PERCENT AUTO 70 % (41-73); Platelet Count 228 K/mm3 (150-400); RDW Coefficient Variation 14.2 % (11.7-14.2); RDW Standard Deviation 47.9 fL (35.1-46.3); Red Blood Cell Count 4.28 M/mm3 (3.80-5.20)
[2023-12-12 23:21] LABS: Albumin, Blood 3.1 g/dL (3.4-5.0); Albumin/Globulin Ratio 0.6 (0.8-1.8); Bilirubin, Total 0.6 mg/dL (0.1-1.0); Bun/Creatinine Ratio 24.2 (12.0-20.0); Calcium, Blood 8.8 mg/dL (8.5-10.1); Creatinine, Blood 0.62 mg/dL (0.40-1.00); Globulin, Blood 4.9 g/dL (2.2-4.0); Magnesium, Blood 1.9 mg/dL (1.6-2.4); Potassium, Blood 3.8 mmol/L (3.5-5.5)
[2023-12-12 23:49] LABS: International Normalized Ratio 1.77; Prothrombin Time Results 18.2 Sec (9.7-11.5)
[2023-12-12 23:56] LABS: Source, Urine Clean Catch
[2023-12-12 23:58] LABS: Bilirubin, Urine Neg (Neg); Blood, Urine Neg (Neg); Glucose Qualitative, Urine 4+ (Neg); Ketones, Urine Neg (Neg); Leukocyte Esterase, Urine 1+ (Neg); Nitrite, Urine Neg (Neg); Protein, Urine 1+ (Neg); Specific Gravity, Urine 1.015 (1.003-1.022); Urobilinogen, Urine NORM (Normal)
[2023-12-13 00:03] LABS: Appearance, Urine Clear (Clear); Color, Urine Yellow (P-Yellow)
[2023-12-13 00:04] LABS: Bacteria Few /hpf; Red Blood Cells, Urine 0-2 /hpf (0-2); Squamous Epithelial Cells Few /hpf (Few); Yeast/Fungi Urine Few /hpf
[2023-12-13] MEDS ORDERED: MetFORMIN HCl 500 mg PO ONE (00:35)
[2023-12-13] MEDS ORDERED: NS 1,000 ML IV SCH (00:35)
[2023-12-13] MEDS ORDERED: METF500 PO (00:44)
[2023-12-13] MEDS ORDERED: NITR100CA PO (00:44)
[2023-12-13 01:30] VITALS: BP 133/80
== END 2023-12-13 03:16 | disposition home or self-care (01) ==
LOC: ER 22:48
PROVIDERS: Student in an Organized Health Care Education/Training Program
DX: N39.0 Urinary tract infection, site not specified (principal); E11.65 Type 2 diabetes mellitus with hyperglycemia; R25.1 Tremor, unspecified; Z91.030 Bee allergy status; Z79.899 Other long term (current) drug therapy; Z79.01 Long term (current) use of anticoagulants; I50.32 Chronic diastolic (congestive) heart failure; F17.290 Nicotine dependence, other tobacco product, uncomplicated
CPT/HCPCS: 80053; 81001; 83735; 85025; 85610; 87086; 93005; 93010; 96360; 96361; 99285-25; A9270; J7030

== ENCOUNTER → 2024-01-09 | Outpatient (CLI) | payer OTHER ==
[~2024-01-09] MED LIST changes: +ALBU8HFA2; +CHLO25B; +COMPRESSOR NEB1 EACH; +Diflucan150 MG; +FEROSUL325 M1; +FOLI1; +Flonase 0.05% N16 GM; +GABA400; +Golytely Solu4000 ML; +IPRAT-ALBUT 0.5-3 ML; +MAGNESIUM OXID500 MG; +METO100; +MICO100S; +MIRALAX17 GM; +MULTI-VITAMIN1 EAC2; +NALOXONE HCL4 MG; +NITR100CA PO; +POTCHL20ER; +Prozac40 MG; +SOAANZ20 M1; +SPIRONOLACTONE100 MG; +STEGLATRO5 MG; +SUBOXONE 8 MG-1 EACH; +SUCR1; +SUDOGEST; +TRIA15CR3; +WARF5
== END ==
LOC: LAB SHORT 18:59 → LAB 18:59
DX: N39.0 Urinary tract infection, site not specified (principal); R35.0 Frequency of micturition
CPT/HCPCS: 87086

== ENCOUNTER 2024-01-15 21:34 | Emergency (ER) | payer OTHER ==
[~2024-01-15] VITALS: Ht 167.6 cm; Wt 113.4 kg
[2024-01-15 21:57] LABS: Source, Urine Clean Catch
[2024-01-15 22:00] VITALS: BP 132/84
[2024-01-15 22:00] LABS: BASOPHILS ABSOLUTE AUTO 0.03 K/mm3 (0.00-0.23); BASOPHILS PERCENT AUTO 0 % (0-2); EOSINOPHILS ABSOLUTE AUTO 0.11 K/mm3 (0.00-0.68); EOSINOPHILS PERCENT AUTO 1 % (0-6); Hemoglobin 13.4 g/dL (11.5-16.0); IMMATURE GRAN ABSOLUTE AUTO 0.06 K/mm3 (0.00-0.10); IMMATURE GRAN PERCENT AUTO 1 % (0-1); LYMPHOCYTES ABSOLUTE AUTO 1.43 K/mm3 (0.84-5.20); LYMPHOCYTES PERCENT AUTO 15 % (21-46); MONOCYTES ABSOLUTE AUTO 0.74 K/mm3 (0.16-1.47); MONOCYTES PERCENT AUTO 8 % (4-13); Mean Corpuscular HGB 30.8 pg (26.0-34.0); Mean Corpuscular HGB Conc 33.5 g/dL (31.5-36.5); Mean Corpuscular Volume 92 fL (80-100); Mean Platelet Volume 10.8 fL (9.1-12.4); NEUTROPHILS ABSOLUTE AUTO 7.13 K/mm3 (1.96-9.15); NEUTROPHILS PERCENT AUTO 75 % (41-73); Platelet Count 187 K/mm3 (150-400); RDW Coefficient Variation 14.1 % (11.7-14.2); Red Blood Cell Count 4.35 M/mm3 (3.80-5.20)
[2024-01-15 22:01] LABS: Bilirubin, Urine Neg (Neg); Blood, Urine 5+ (Neg); Glucose Qualitative, Urine 4+ (Neg); Ketones, Urine Neg (Neg); Leukocyte Esterase, Urine 1+ (Neg); Nitrite, Urine Neg (Neg); Protein, Urine 3+ (Neg); Urobilinogen, Urine 1+ (Normal)
[2024-01-15 22:10] LABS: Appearance, Urine Bloody (Clear); Color, Urine Red (P-Yellow)
[2024-01-15 22:12] LABS: Bacteria Mod /hpf; Red Blood Cells, Urine TNTC /hpf (0-2); Squamous Epithelial Cells Few /hpf (Few)
[2024-01-15 22:13] LABS: Albumin/Globulin Ratio 0.6 (0.8-1.8); Bilirubin, Total 0.4 mg/dL (0.1-1.0); Bun/Creatinine Ratio 21.1 (12.0-20.0); Calcium, Blood 8.8 mg/dL (8.5-10.1); Creatinine, Blood 0.47 mg/dL (0.40-1.00); Globulin, Blood 4.7 g/dL (2.2-4.0); Total Protein, Blood 7.7 g/dL (6.4-8.2)
== END 2024-01-15 22:27 | disposition left against medical advice (07) ==
LOC: ER 21:34
PROVIDERS: Emergency Medicine
DX: R10.9 Unspecified abdominal pain (principal); R31.9 Hematuria, unspecified; Z53.21 Procedure and treatment not carried out due to patient leaving prior to being seen by health care provider
CPT/HCPCS: 80053; 81001; 85025; 87077; 87086; 93005; 93010

== ENCOUNTER → 2024-01-27 | Outpatient (CLI) | payer OTHER | LOC: LAB SHORT 13:39 → LAB 13:39 | DX: R30.0 Dysuria (principal); R31.29 Other microscopic hematuria | CPT/HCPCS: 87086; 87106 ==

== ENCOUNTER → 2024-02-17 | Outpatient (CLI) | payer OTHER | END | disposition home or self-care (01) | LOC: LAB SHORT 16:23 → LAB 16:23 | DX: N30.10 Interstitial cystitis (chronic) without hematuria (principal) | CPT/HCPCS: 87086 ==

== ENCOUNTER 2024-04-03 16:38 | Emergency (ER) | payer OTHER ==
[~2024-04-03] VITALS: Ht 167.6 cm; Wt 108.9 kg
[2024-04-03 16:41] VITALS: BP 122/66
[2024-04-03 16:55] LABS: Source, Urine Clean Catch
[2024-04-03 17:00] LABS: Appearance, Urine Hazy (Clear); Bilirubin, Urine Neg (Neg); Blood, Urine Neg (Neg); Color, Urine Yellow (P-Yellow); Glucose Qualitative, Urine Neg (Neg); Ketones, Urine Neg (Neg); Leukocyte Esterase, Urine 1+ (Neg); Nitrite, Urine Neg (Neg); Protein, Urine Neg (Neg); Urobilinogen, Urine 1+ (Normal)
[2024-04-03 17:13] LABS: Bacteria Mod /hpf; Red Blood Cells, Urine 0-2 /hpf (0-2); Squamous Epithelial Cells Few /hpf (Few)
== END 2024-04-03 20:08 | disposition left against medical advice (07) ==
LOC: ER 16:38
PROVIDERS: Student in an Organized Health Care Education/Training Program
DX: M25.561 Pain in right knee (principal); Z53.21 Procedure and treatment not carried out due to patient leaving prior to being seen by health care provider
CPT/HCPCS: 73562-RT; 81001; 87086

== ENCOUNTER → 2024-04-05 | Outpatient (CLI) | payer OTHER | LOC: LAB SHORT 13:31 → LAB 13:31 | DX: N30.00 Acute cystitis without hematuria (principal); N30.10 Interstitial cystitis (chronic) without hematuria | CPT/HCPCS: 87086 ==

== ENCOUNTER → 2024-05-18 | Outpatient (CLI) | payer OTHER | END | disposition home or self-care (01) | LOC: LAB 13:19 → LAB SHORT 13:19 | DX: R30.0 Dysuria (principal) | CPT/HCPCS: 87086 ==

== ENCOUNTER 2024-06-06 18:32 | Emergency (ER) | payer OTHER ==
[~2024-06-06] VITALS: Ht 167.6 cm; Wt 81.7 kg
[2024-06-06 18:41] VITALS: BP 160/83
[2024-06-06 18:53] LABS: Source, Urine Clean Catch
[2024-06-06 19:08] LABS: Appearance, Urine Hazy (Clear); Blood, Urine 1+ (Neg); Color, Urine Yellow (P-Yellow); Glucose Qualitative, Urine Neg (Neg); Ketones, Urine 1+ (Neg); Leukocyte Esterase, Urine 3+ (Neg); Nitrite, Urine Neg (Neg); Protein, Urine 3+ (Neg); Specific Gravity, Urine 1.015 (1.003-1.022); Urobilinogen, Urine 2+ (Normal)
[2024-06-06 19:15] LABS: Bilirubin, Urine 1+ (Neg)
[2024-06-06 19:18] LABS: Squamous Epithelial Cells Many /hpf (Few); White Blood Cells, Urine 50-100 /hpf (0-5)
[2024-06-06 19:19] LABS: Amorphous Light (0-Heavy); Bacteria Many /hpf; Mucus Light (0-Heavy); Transitional Epithelial Cells Few /hpf (0-Rare); Yeast/Fungi Urine Rare /hpf
[2024-06-06] MEDS ORDERED: MACRODANTIN100 M8 PO (19:35)
[2024-06-06] MEDS ORDERED: PHENA200 PO (19:35)
[2024-06-06] MEDS ORDERED: QUETIAPINE FUM200 M8 PO (19:35)
[2024-06-06] MEDS ORDERED: Nitrofurantoin/Nitrofuran Mac 100 MG Cap PO ONE (19:35)
[2024-06-06] MEDS ORDERED: Diflucan100 MG PO (19:35)
[2024-06-06] MEDS ORDERED: QUEtiapine Fumarate 200 MG Tab PO ONE (19:35)
[2024-06-07] MEDS ORDERED: NITR100CA PO (09:44)
[2024-06-07] MEDS ORDERED: [UNRECOGNIZED DRUG - CODE] PO (09:44)
== END 2024-06-06 20:01 | disposition home or self-care (01) ==
LOC: ER 18:32
PROVIDERS: Physician Assistant
DX: N39.0 Urinary tract infection, site not specified (principal); I50.9 Heart failure, unspecified; E11.9 Type 2 diabetes mellitus without complications; F17.290 Nicotine dependence, other tobacco product, uncomplicated; Z91.030 Bee allergy status; Z91.048 Other nonmedicinal substance allergy status; Z79.899 Other long term (current) drug therapy; Z79.01 Long term (current) use of anticoagulants; Z79.02 Long term (current) use of antithrombotics/antiplatelets; Z79.84 Long term (current) use of oral hypoglycemic drugs
CPT/HCPCS: 81001; 87086; 99283; A9270

== ENCOUNTER → 2024-06-14 | Outpatient (CLI) | payer OTHER ==
[~2024-06-14] MED LIST changes: +MACRODANTIN100 M8 PO; +[UNRECOGNIZED DRUG - CODE] PO
== END ==
LOC: LAB SHORT 17:28 → LAB 17:28
DX: R30.0 Dysuria (principal)
CPT/HCPCS: 87086; 87106

== ENCOUNTER → 2024-07-27 | Outpatient (CLI) | payer OTHER | LOC: LAB 15:18 → LAB SHORT 15:18 | DX: R30.0 Dysuria (principal) | CPT/HCPCS: 87077; 87086; 87186 ==

== ENCOUNTER 2024-08-05 14:30 | Emergency (ER) | payer OTHER ==
[~2024-08-05] VITALS: Ht 167.6 cm; Wt 108.9 kg
[2024-08-05 14:40] VITALS: BP 167/96
[2024-08-05 15:05] LABS: Source, Urine Clean Catch
[2024-08-05 15:11] LABS: Appearance, Urine Hazy (Clear); Bilirubin, Urine Neg (Neg); Blood, Urine Neg (Neg); Color, Urine Yellow (P-Yellow); Glucose Qualitative, Urine Neg (Neg); Ketones, Urine 1+ (Neg); Leukocyte Esterase, Urine 2+ (Neg); Nitrite, Urine Neg (Neg); Protein, Urine 2+ (Neg); Specific Gravity, Urine 1.015 (1.003-1.022); Urobilinogen, Urine 1+ (Normal); pH, Urine 6.5 (5.0-8.0)
[2024-08-05 15:24] LABS: Bacteria Many /hpf; Hyaline Casts 0-2 /lpf (0-2); Squamous Epithelial Cells Mod /hpf (Few); Yeast/Fungi Urine Rare /hpf
[2024-08-05] MEDS ORDERED: Neurontin 300300 MG PO ×2 (15:47→16:00)
[2024-08-05] MEDS ORDERED: CEPH500 PO ×2 (15:47→16:00)
== END 2024-08-05 16:05 | disposition home or self-care (01) ==
LOC: ER 14:30
PROVIDERS: Emergency Medicine
DX: N39.0 Urinary tract infection, site not specified (principal); Z60.9 Problem related to social environment, unspecified; Z91.148 Patient's other noncompliance with medication regimen for other reason; I50.32 Chronic diastolic (congestive) heart failure; J44.9 Chronic obstructive pulmonary disease, unspecified; E11.9 Type 2 diabetes mellitus without complications; F17.290 Nicotine dependence, other tobacco product, uncomplicated; Z91.030 Bee allergy status; Z79.899 Other long term (current) drug therapy; Z79.01 Long term (current) use of anticoagulants; Z79.2 Long term (current) use of antibiotics; Z79.82 Long term (current) use of aspirin
CPT/HCPCS: 81001; 87086; 99283

== ENCOUNTER → 2024-09-08 | Outpatient (CLI) | payer OTHER ==
[~2024-09-08] MED LIST changes: +Neurontin 300300 MG PO
== END ==
LOC: LAB 16:35 → LAB SHORT 16:35
DX: R30.0 Dysuria (principal)
CPT/HCPCS: 87086; 87106

== ENCOUNTER 2024-10-23 11:08 | Emergency (ER) | payer OTHER ==
[~2024-10-23] VITALS: Ht 167.6 cm; Wt 108.9 kg
[2024-10-23 11:33] LABS: BASOPHILS ABSOLUTE AUTO 0.03 K/mm3 (0.00-0.23); BASOPHILS PERCENT AUTO 0 % (0-2); EOSINOPHILS ABSOLUTE AUTO 0.12 K/mm3 (0.00-0.68); EOSINOPHILS PERCENT AUTO 1 % (0-6); Hematocrit 40.4 % (33.0-51.0); Hemoglobin 13.2 g/dL (11.5-16.0); IMMATURE GRAN ABSOLUTE AUTO 0.06 K/mm3 (0.00-0.10); IMMATURE GRAN PERCENT AUTO 1 % (0-1); LYMPHOCYTES ABSOLUTE AUTO 1.63 K/mm3 (0.84-5.20); LYMPHOCYTES PERCENT AUTO 20 % (21-46); MONOCYTES ABSOLUTE AUTO 0.63 K/mm3 (0.16-1.47); MONOCYTES PERCENT AUTO 8 % (4-13); Mean Corpuscular HGB Conc 32.7 g/dL (31.5-36.5); Mean Corpuscular Volume 91 fL (80-100); NEUTROPHILS ABSOLUTE AUTO 5.87 K/mm3 (1.96-9.15); NEUTROPHILS PERCENT AUTO 70 % (41-73); NRBC ABSOLUTE 0.00 K/mm3 (0.00-0.02); NRBC Auto 0.0 /100 WBC (0.0-0.2); Platelet Count 269 K/mm3 (150-400); RDW Coefficient Variation 13.7 % (11.7-14.2); RDW Standard Deviation 46.0 fL (35.1-46.3)
[2024-10-23 11:55] LABS: Alanine Aminotransfer (ALT/SGP 22.0 U/L (12-78); Albumin, Blood 3.6 g/dL (3.4-5.0); Albumin/Globulin Ratio 0.7 (0.8-1.8); Anion Gap 8.0 mmol/L (3-11); Aspartate Aminotrans (AST/SGOT 28.0 U/L (12-37); Bilirubin, Total 0.3 mg/dL (0.1-1.0); Blood Urea Nitrogen 15.0 mg/dL (8-24); CO2, Blood 33.0 mmol/L (21-32); Calcium, Blood 9.1 mg/dL (8.5-10.1); Chloride, Blood 93.0 mmol/L (98-108); Creatinine, Blood 0.66 mg/dL (0.40-1.00); Globulin, Blood 5.0 g/dL (2.2-4.0); Glucose, Blood 215.0 mg/dL (70-99); Potassium, Blood 3.8 mmol/L (3.5-5.5); Sodium, Blood 130.0 mmol/L (136-145); Total Protein, Blood 8.6 g/dL (6.4-8.2)
[2024-10-23] MEDS ORDERED: Oxymetazoline 0.05% Nasal Relief Spray 15mL BTL ONE (12:00)
[2024-10-23] MEDS ORDERED: Buprenorphine HCL/Naloxone HCL 8MG-2MG Tab SL ONE ×2 (12:10→18:25)
[2024-10-23 12:14] LABS: Source, Urine Clean Catch
[2024-10-23 12:19] LABS: Prothrombin Time Results >90.0 Sec (9.7-11.5)
[2024-10-23 12:42] LABS: Glucose Qualitative, Urine 1+ (Neg); Ketones, Urine 1+ (Neg); Leukocyte Esterase, Urine 2+ (Neg); Protein, Urine 2+ (Neg); Specific Gravity, Urine 1.015 (1.003-1.022); Urobilinogen, Urine 2+ (Normal)
[2024-10-23 12:52] LABS: Bilirubin, Urine 1+ (Neg); Color, Urine Amber (P-Yellow)
[2024-10-23 12:53] LABS: Yeast/Fungi Urine Few /hpf
[2024-10-23 13:56] LABS: Prothrombin Time Results >90.0 Sec (9.7-11.5)
[2024-10-23] MEDS ORDERED: Midazolam HCl 1MG / ML 2ML Vial IV ONE (16:15)
[2024-10-23 16:24] VITALS: BP 154/79
[2024-10-23 20:06] LABS: Hematocrit 38.8 % (33.0-51.0); Hemoglobin 12.9 g/dL (11.5-16.0)
== END 2024-10-23 20:49 | disposition left against medical advice (07) ==
LOC: ER 11:08
PROVIDERS: Emergency Medicine; Student in an Organized Health Care Education/Training Program
DX: R04.0 Epistaxis (principal); R79.83 Abnormal findings of blood amino-acid level; N39.0 Urinary tract infection, site not specified; Z76.0 Encounter for issue of repeat prescription; Z91.030 Bee allergy status; Z79.899 Other long term (current) drug therapy; E11.9 Type 2 diabetes mellitus without complications; J44.9 Chronic obstructive pulmonary disease, unspecified; I50.30 Unspecified diastolic (congestive) heart failure; Z90.49 Acquired absence of other specified parts of digestive tract; Z90.711 Acquired absence of uterus with remaining cervical stump; Z87.442 Personal history of urinary calculi; F17.290 Nicotine dependence, other tobacco product, uncomplicated
CPT/HCPCS: 30901; 80053; 81001; 85014; 85018; 85025; 85610; 87086; 99283-25; A9270; J2250

== ENCOUNTER → 2024-10-29 | Outpatient (CLI) | payer OTHER | LOC: LAB SHORT 17:48 → LAB 17:48 | DX: R30.0 Dysuria (principal) | CPT/HCPCS: 87086 ==

== ENCOUNTER → 2024-11-25 | Outpatient (CLI) | payer OTHER ==
[2024-11-25 18:48] LABS: Creatinine, Urine Random 145.0 mg/dL (27.00-270.00); Microalb/Creat Ratio UR, Rand 17.931 mg/g (0.000-30.000); Microalbumin, Random Urine 26.0 mg/L (0.000-20.000)
[2024-11-29 12:23] LABS: 7-AMINOCLONAZEPAM, URN, QUANT <5 ng/mL; A-HYDROXYALPRAZOLAM, URN, QNT <5 ng/mL; A-HYDROXYMIDAZOLAM, URN, QNT <20 ng/mL; ALPRAZOLAM, URN, QUANT <5 ng/mL; CHLORDIAZEPOXIDE, URN, QUANT <20 ng/mL; CLONAZEPAM, URN, QUANT <5 ng/mL; DIAZEPAM, URN, QUANT <20 ng/mL; LORAZEPAM, URN, QUANT <20 ng/mL; MIDAZOLAM, URN, QUANT <20 ng/mL; NORDIAZEPAM, URN, QUANT <20 ng/mL; OXAZEPAM, URN, QUANT <20 ng/mL; TEMAZEPAM, URN, QUANT <20 ng/mL
[2024-11-29 21:34] LABS: AMPHETAMINE,URN,QUANT <50 ng/mL; MDA,URN,QUANT <200 ng/mL; MDEA,URN,QUANT <200 ng/mL; MDMA,URN,QUANT <200 ng/mL; METHAMPHETAMINE,URN,QUANT <200 ng/mL; PHENTERMINE,URN,QUANT <200 ng/mL
== END ==
LOC: LAB 10:22 → LAB SHORT 10:22
PROVIDERS: Family Medicine
DX: F11.21 Opioid dependence, in remission (principal); F19.10 Other psychoactive substance abuse, uncomplicated; E11.42 Type 2 diabetes mellitus with diabetic polyneuropathy
CPT/HCPCS: 82043; 82570; G0480; G0481

== ENCOUNTER → 2025-03-03 | Outpatient (CLI) | payer OTHER | LOC: LAB SHORT 13:27 → LAB 13:27 | DX: R30.0 Dysuria (principal) | CPT/HCPCS: 87086 ==

== ENCOUNTER → 2025-03-24 | Outpatient (CLI) | payer OTHER | LOC: LAB 15:56 → LAB SHORT 15:56 | DX: N30.01 Acute cystitis with hematuria (principal); R30.0 Dysuria | CPT/HCPCS: 87077; 87086; 87186 ==